=== PATIENT | female | born 1960 | race Caucasian/White ===

== ENCOUNTER 2017-11-11 18:06 | Inpatient (IN) | payer SELFPAY ==
[~2017-11-11] VITALS: Ht 157.5 cm; Wt 84.7 kg
[~2017-11-11 18:06] MED LIST: CLON.5 PO; DICL50 PO; GABA250S PO; METH750T2 PO; MIRA0.5T PO; PRIL20CA PO; ZOLO50TA PO
[2017-11-11 18:13] VITALS: BP 140/87; PULSE 128; RESP 22; TEMP 103.6; O2SAT 95
[2017-11-11 18:29] VITALS: TEMP 98.6
[2017-11-11 18:43] VITALS: O2SAT 95
--- NOTE | 2017-11-11 19:02 | RADRPT ---
EXAM DATE/TIME: 11/11/2017 18:58 [facility] COMPARISON: CHEST SINGLE AP, June 17, 2015, 19:34. INDICATIONS : Chest pain and short of breath. MEDICAL HISTORY : None. SURGICAL HISTORY : None. ENCOUNTER: Initial ACUITY: 1 day PAIN SCORE: 2/10 LOCATION: Bilateral chest FINDINGS: A single view of the chest demonstrates the lungs to be symmetrically aerated without evidence of mas s, infiltrate or effusion. The cardiomediastinal contours are unremarkable. Osseous structures are intact. CONCLUSION: Normal examination. Hitesh Middleton MD on November 11, 2017 at 19:00 Board Certified Radiologist. This report was verified electronically.
--- NOTE | 2017-11-11 19:03 | PD ---
HPI Chief Complaint: Flank/Kidney Pain Time Seen by Provider: 18:24 (Paloma Godfrey) Time Seen by Provider: 21:22 (Toña Espinal MD) Travel History International Travel<30 days: No Contact w/Intl Traveler<30days: No Traveled to known affect area: No (Paloma Godfrey) History of Present Illness HPI 57-year-old female complaining of left flank pain, dizziness, and bloody urine since September 2017. Patient states that she is here today because she is having severe flank pain and is unable to tolerate the pain anymore. Says currently her left flank pain is sharp, stabbing, radiates to the anterior flank and groin, associated with chills and nausea. The pain increases with movement and is moderate. Patient states that she had a kidney stent placed in September with Dr. Calloway for kidney stones. Patient also states she has developed diarrhea around November 04 which she believes is recurrent C. difficile. She has had 5-6 episodes of diarrhea daily. Says her last episode was in September 2016. Denies vomiting or hematochezia. Says she has had a difficult time with oral intake secondary to this nausea. (Paloma Godfrey) PFSH Past Medical History Blood Disorders: No Anxiety: Yes Depression: Yes Heart Rhythm Problems: No Cancer: No Cardiac Catheterization: No Cardiovascular Problems: No Congestive Heart Failure: No COPD: Yes (DENIES) Diabetes: No Diminished Hearing: No Endocrine: No Gastrointestinal Disorders: Yes (acid reflux, IBS) Glaucoma: No Genitourinary: No Hepatitis: No Hiatal Hernia: No Hypertension: No Immune Disorder: No Musculoskeletal: Yes (CARPAL TUNNEL, ARTHRITIS) Neurologic: No Psychiatric: Yes (anxiety) Reproductive: Yes Respiratory: No Thyroid Disease: No ?: Not Tubal Ligation: Yes (Paloma Godfrey) Past Surgical History Abdominal Surgery: Yes Appendectomy: Yes Section: Yes (X1) Coronary Artery Bypass Graft: No Gynecologic Surgery: Yes (d&c, cyst removed from ovary ) Hysterectomy: Yes Other Surgery: Yes (BREAST REDUCTION) (Paloma Godfrey) Social History Alcohol Use: No (DENIES) Tobacco Use: No (QUIT 2YRS AGO) Substance Use: No (DENIES) (Paloma Godfrey) Allergies-Medications (Allergen,Severity, Reaction): Coded Allergies: No Known Allergies (Verified Allergy, Unknown, 1/8/18) Reported Meds & Prescriptions Reported Meds & Active Scripts Active (Toña Espinal MD) Review of Systems Except as stated in HPI: all other systems reviewed are Neg (Paloma Godfrey) Physical Exam Narrative GENERAL: Well-nourished in no apparent distress SKIN: Focused skin assessment warm/dry. HEAD: Atraumatic. Normocephalic. EYES: Pupils equal and round. No scleral icterus. No injection or drainage. ENT: No nasal bleeding or discharge. Mucous membranes pink and moist. NECK: Trachea midline. No JVD. No lymphadenopathy CARDIOVASCULAR: Regular rate and rhythm. No murmur appreciated. RESPIRATORY: No accessory muscle use. Clear to auscultation. Breath sounds equal bilaterally. GASTROINTESTINAL: Abdomen soft, diffusely tender, nondistended MUSCULOSKELETAL: No obvious deformities. No clubbing. No cyanosis. No edema. Chest wall mildly tender NEUROLOGICAL: Awake and alert. No obvious cranial nerve deficits. Motor grossly within normal limits. Normal speech. PSYCHIATRIC: Appropriate mood and affect; insight and judgment normal. (Paloma Godfrey) Data Data Last Documented VS Vital Signs Date Time Temp Pulse Resp B/P (MAP) Pulse Ox O2 Delivery O2 Flow Rate FiO2 11/11/17 22:01 102.0 106 18 136/63 (87) 100 Room Air (Toña Espinal MD) Orders Orders Electrocardiogram (11/11/17 18:35) Complete Blood Count With Diff (11/11/17 18:35) Comprehensive Metabolic Panel (11/11/17 18:35) Prothrombin Time / Inr (Pt) (11/11/17 18:35) Act Partial Throm Time (Ptt) (11/11/17 18:35) Urinalysis - C+S If Indicated (11/11/17 18:35) Iv Access Insert/Monitor (11/11/17 18:35) Ecg Monitoring (11/11/17 18:35) Oximetry (11/11/17 18:35) Type And Screen (11/11/17 18:35) Ct Abd/Pel W Iv Contrast(Rout) (11/11/17 ) Sepsis Workup Initiated (11/11/17 ) Lactic Acid Sepsis Protocol (11/11/17 18:40) Influenzae A/B Antigen (11/11/17 18:40) Chest, Single Ap (11/11/17 18:40) Ct Brain W/O Iv Contrast(Rout) (11/11/17 ) C Diff Toxin Pcr (11/11/17 19:09) Ondansetron Inj (Zofran Inj) (11/11/17 19:15) Sodium Chlor 0.9% 1000 Ml Inj (Ns 1000 M (11/11/17 19:15) Morphine Inj (Morphine Inj) (11/11/17 19:15) Lipase (11/11/17 18:35) Urine Culture (11/11/17 18:35) Iohexol 350 Inj (Omnipaque 350 Inj) (11/11/17 20:30) Ceftriaxone Inj (Rocephin Inj) (11/11/17 21:00) Admit Order (Ed Use Only) (11/11/17 22:04) (Toña Espinal MD) Labs Laboratory Tests Test 11/11/17 18:35 11/11/17 18:45 Urine Color YELLOW Urine Turbidity HAZY Urine pH 7.0 Urine Specific [place] 1.013 Urine Protein 30 mg/dL Urine Glucose (UA) NEG mg/dL Urine Ketones NEG mg/dL Urine Occult Blood LARGE Urine Nitrite POS Urine Bilirubin NEG Urine Urobilinogen LESS THAN 2.0 MG/DL Urine Leukocyte Esterase LARGE Urine RBC /hpf Urine WBC /hpf Urine WBC Clumps OCC Urine Squamous Epithelial Cells 2 /hpf Urine Bacteria RARE /hpf Urine Mucus FEW /lpf Microscopic Urinalysis Comment CULTURE INDICATED White Blood Count 7.3 TH/MM3 Red Blood Count 3.61 MIL/MM3 Hemoglobin 11.1 GM/DL Hematocrit 31.5 % Mean Corpuscular Volume 87.2 FL Mean Corpuscular Hemoglobin 30.8 PG Mean Corpuscular Hemoglobin Concent 35.3 % Red Cell Distribution Width 13.5 % Platelet Count 154 TH/MM3 Mean Platelet Volume 9.0 FL Neutrophils (%) (Auto) 77.2 % Lymphocytes (%) (Auto) 14.7 % Monocytes (%) (Auto) 6.6 % Eosinophils (%) (Auto) 0.9 % Basophils (%) (Auto) 0.6 % Neutrophils # (Auto) 5.6 TH/MM3 Lymphocytes # (Auto) 1.1 TH/MM3 Monocytes # (Auto) 0.5 TH/MM3 Eosinophils # (Auto) 0.1 TH/MM3 Basophils # (Auto) 0.0 TH/MM3 CBC Comment DIFF FINAL Differential Comment Prothrombin Time 10.5 SEC Prothromb Time International Ratio 1.0 RATIO Activated Partial Thromboplast Time 26.6 SEC Blood Urea Nitrogen 15 MG/DL Creatinine 1.01 MG/DL Random Glucose 116 MG/DL Total Protein 6.8 GM/DL Albumin 3.5 GM/DL Calcium Level 8.5 MG/DL Alkaline Phosphatase 77 U/L Aspartate Amino Transf (AST/SGOT) 10 U/L Alanine Aminotransferase (ALT/SGPT) 16 U/L Total Bilirubin 0.6 MG/DL Sodium Level 137 MEQ/L Potassium Level 3.4 MEQ/L Chloride Level 104 MEQ/L Carbon Dioxide Level 27.3 MEQ/L Anion Gap 6 MEQ/L Estimat Glomerular Filtration Rate 57 ML/MIN Lactic Acid Level 1.0 mmol/L Lipase 83 U/L (Toña Espinal MD) [facility] Medical Decision Making Medical Screen Exam Complete: Yes Emergency Medical Condition: Yes Differential Diagnosis UTI, nephrolithiasis, influenza, pancreatitis, cholecystitis, C Diff, infectious diarrhea Narrative Course 57-year-old female complaining of left flank pain, dizziness, and bloody urine since September 2017. Patient states that she is here today because she is having severe flank pain and is unable to tolerate this anymore. Says currently her left flank pain is sharp, stabbing, radiates to the anterior flank and groin associated with chills and nausea. The pain increases with movement and is moderate. Patient states that she had a kidney stent placed in September with Dr. Calloway for kidney stones. Patient also states she has developed diarrhea which she believes is recurrent C. difficile. She has had 5-6 episodes of diarrhea daily. Says her last episode was in September 2016. Says she has been 'bumping her head' a lot recently because of the pain. Denies headaches or visual changes. Denies vomiting or hematochezia. Says she has had a difficult time with oral intake secondary to this nausea. Denies chest pain or shortness of breath. Denies cardiac history. Vital signs- tachycardia. Initial temperature 103.8, recheck in the room at 98.6. Pt describes fevers at home of 103. Laboratory Tests Test 11/11/17 18:35 11/11/17 18:45 Urine Color YELLOW Urine Turbidity HAZY Urine pH 7.0 Urine Specific [place] 1.013 Urine Protein 30 mg/dL Urine Glucose (UA) NEG mg/dL Urine Ketones NEG mg/dL Urine Occult Blood LARGE Urine Nitrite POS Urine Bilirubin NEG Urine Urobilinogen LESS THAN 2.0 MG/DL Urine Leukocyte Esterase LARGE Urine RBC /hpf Urine WBC /hpf Urine WBC Clumps OCC Urine Squamous Epithelial Cells 2 /hpf Urine Bacteria RARE /hpf Urine Mucus FEW /lpf Microscopic Urinalysis Comment CULTURE INDICATED White Blood Count 7.3 TH/MM3 Red Blood Count 3.61 MIL/MM3 Hemoglobin 11.1 GM/DL Hematocrit 31.5 % Mean Corpuscular Volume 87.2 FL Mean Corpuscular Hemoglobin 30.8 PG Mean Corpuscular Hemoglobin Concent 35.3 % Red Cell Distribution Width 13.5 % Platelet Count 154 TH/MM3 Mean Platelet Volume 9.0 FL Neutrophils (%) (Auto) 77.2 % Lymphocytes (%) (Auto) 14.7 % Monocytes (%) (Auto) 6.6 % Eosinophils (%) (Auto) 0.9 % Basophils (%) (Auto) 0.6 % Neutrophils # (Auto) 5.6 TH/MM3 Lymphocytes # (Auto) 1.1 TH/MM3 Monocytes # (Auto) 0.5 TH/MM3 Eosinophils # (Auto) 0.1 TH/MM3 Basophils # (Auto) 0.0 TH/MM3 CBC Comment DIFF FINAL Differential Comment Prothrombin Time 10.5 SEC Prothromb Time International Ratio 1.0 RATIO Activated Partial Thromboplast Time 26.6 SEC Blood Urea Nitrogen 15 MG/DL Creatinine 1.01 MG/DL Random Glucose 116 MG/DL Total Protein 6.8 GM/DL Albumin 3.5 GM/DL Calcium Level 8.5 MG/DL Alkaline Phosphatase 77 U/L Aspartate Amino Transf (AST/SGOT) 10 U/L Alanine Aminotransferase (ALT/SGPT) 16 U/L Total Bilirubin 0.6 MG/DL Sodium Level 137 MEQ/L Potassium Level 3.4 MEQ/L Chloride Level 104 MEQ/L Carbon Dioxide Level 27.3 MEQ/L Anion Gap 6 MEQ/L Estimat Glomerular Filtration Rate 57 ML/MIN Lactic Acid Level 1.0 mmol/L Lipase 83 U/L Last Impressions Chest X-Ray 11/11/17 1840 Signed Impressions: Service Date/Time: Saturday, November 11, 2017 18:58 - CONCLUSION: Normal examination. Hitesh Middleton MD Head CT 11/11/17 0000 Signed Impressions: Service Date/Time: Saturday, November 11, 2017 20:17 - CONCLUSION: Normal examination. Hitesh Middleton MD Abdomen/Pelvis CT 11/11/17 0000 Signed Impressions: Service Date/Time: Saturday, November 11, 2017 20:20 - CONCLUSION: Left-sided double-J ureteral catheter in good position. 2-3 mm stone at the level of L4-5 disc space on the left. Numerous gallstones without evidence of acute cholecystitis. Hitesh Middleton MD Flu was ordered secondary to her initial complaints of nausea, diarrhea, and fever. This was negative. Patient was able to ambulate around the room and to the bathroom easily. After further discussion, patient states that she has had recurrent urinary tract infections. There is a concern for pyelonephritis based off of patient's history and findings today. Initial fever, tachycardia, nausea, diarrhea. She had a recent history of a 10-day hospital stay at [facility] for sepsis. She will be admitted for pyelonephritis, r/o sepsis. (Paloma Godfrey) Diagnosis Primary Impression: UTI (urinary tract infection) Qualified Codes: N30.00 - Acute cystitis without hematuria Additional Impressions: Nephrolithiasis Pyelonephritis C. difficile diarrhea Admitting Information Admitting Physician Requests: Observation (Paloma Godfrey) Condition: Stable Paloma Godfrey Nov 11, 2017 19:03 Toña Espinal MD Nov 11, 2017 21:13
[2017-11-11] MEDS ORDERED: SODIUM CHLOR 0.9% 1000 ML INJ 1,000 ML IV ONE (19:15)
[2017-11-11] MEDS ORDERED: ONDANSETRON HCL 4 MG/2 ML VIAL IV PUSH ONE (19:15)
[2017-11-11] MEDS ORDERED: MORPHINE SULFATE 2 MG/ML INJ IV PUSH ONE (19:15)
[2017-11-11 19:30] LABS: BACTERIA, URINE RARE /hpf; BILIRUBIN, URINE NEG (NEG); BLOOD, URINE LARGE (NEG); GLUCOSE,URINE NEG (NEG); KETONE, URINE NEG (NEG); MUCUS URINE FEW /lpf (OCC); NITRITE,URINE POS (NEG); SQUAMOUS EPITHELIAL CELL URINE 2 /hpf (0-5); URINE COLOR YELLOW (YELLW/STRAW); URINE LEUKOCYTE ESTERASE LARGE (NEG); WHITE BLOOD CELL CLUMPS OCC
[2017-11-11 19:33] LABS: PROTHROMBIN TIME - PATIENT 10.5 SEC (9.8-11.6)
[2017-11-11 19:55] LABS: AUTOMATED NEUTROPHIL # 5.6 TH/MM3 (1.8-7.7); BASOPHIL % 0.6 % (0.0-2.0); EOSINOPHIL # 0.1 TH/MM3 (0-0.4); EOSINOPHIL % 0.9 % (0.0-4.0); HEMATOCRIT 31.5 % (35.0-46.0); HEMOGLOBIN 11.1 GM/DL (11.6-15.3); LYMPH % 14.7 % (9.0-44.0); LYMPHOCYTE # 1.1 TH/MM3 (1.0-4.8); MEAN CELL VOLUME 87.2 FL (80.0-100.0); MEAN CORPUSCULAR HEMOGLOBIN 30.8 PG (27.0-34.0); MEAN CORPUSCULAR HGB CONC 35.3 % (32.0-36.0); MONO % 6.6 % (0.0-8.0); MONOCYTE # 0.5 TH/MM3 (0-0.9); NEUT % 77.2 % (16.0-70.0); PLATELET COUNT 154 TH/MM3 (150-450); RED BLOOD COUNT 3.61 MIL/MM3 (4.00-5.30); RED CELL DISTRIBUTION WIDTH 13.5 % (11.6-17.2); WHITE BLOOD COUNT 7.3 TH/MM3 (4.0-11.0)
[2017-11-11 20:08] LABS: ALBUMIN 3.5 GM/DL (3.4-5.0); AST (GOT) 10 U/L (15-37); BICARBONATE 27.3 MEQ/L (21.0-32.0); BLOOD UREA NITROGEN 15 MG/DL (7-18); CALCIUM 8.5 MG/DL (8.5-10.1); CHLORIDE 104 MEQ/L (98-107); CREATININE 1.01 MG/DL (0.50-1.00); GLOMERULAR FILTRATION RATE 57 ML/MIN (>89); GLUCOSE,RANDOM 116 MG/DL (74-106); LIPASE 83 U/L (73-393); SODIUM (NA) 137 MEQ/L (136-145)
[2017-11-11 20:09] LABS: ALT (GPT) 16 U/L (10-53)
[2017-11-11 20:11] LABS: ALKALINE PHOSPHATASE 77 U/L (45-117); TOTAL BILIRUBIN ADULT 0.6 MG/DL (0.2-1.0); TOTAL PROTEIN 6.8 GM/DL (6.4-8.2)
[2017-11-11] MEDS ORDERED: IOHEXOL 350 MG/ML 10 ML VIAL (for RAD DIAG) IVCONTRAST ONE (20:30)
[2017-11-11 20:47] VITALS: BP 123/74; PULSE 95; RESP 18; O2SAT 100
--- NOTE | 2017-11-11 20:49 | RADRPT ---
EXAM DATE/TIME: 11/11/2017 20:17 [facility] COMPARISON: CT BRAIN W/O CONTRAST, June 17, 2015, 22:26. INDICATIONS : Dizziness today. RADIATION DOSE: 56.35 CTDIvol (mGy) MEDICAL HISTORY : Chronic obstructive pulmonary disease. SURGICAL HISTORY : Hysterectomy. ENCOUNTER: Initial ACUITY: 1 day PAIN SCALE: 0/10 LOCATION: Bilateral head TECHNIQUE: Multiple contiguous axial images were obtained of the head. Using automated exposure control and adj ustment of the mA and/or kV according to patient size, radiation dose was kept as low as reasonably a chievable to obtain optimal diagnostic quality images. DICOM format image data is available electro nically for review and comparison. FINDINGS: CEREBRUM: The ventricles are normal for age. No evidence of midline shift, mass lesion, hemorrhage or acute in farction. No extra-axial fluid collections are seen. POSTERIOR FOSSA: The cerebellum and brainstem are intact. The 4th ventricle is midline. The cerebellopontine angle i s unremarkable. EXTRACRANIAL: The visualized portion of the orbits is intact. SKULL: The calvaria is intact. No evidence of skull fracture. CONCLUSION: Normal examination. Hitesh Middleton MD on November 11, 2017 at 20:46 Board Certified Radiologist. This report was verified electronically.
--- NOTE | 2017-11-11 20:53 | RADRPT ---
EXAM DATE/TIME: 11/11/2017 20:20 [facility] COMPARISON: No previous studies available for comparison. INDICATIONS : Left flank pain for three days. IV CONTRAST: 96 cc Omnipaque 350 (iohexol) IV ORAL CONTRAST: No oral contrast ingested. RADIATION DOSE: 8.5 CTDIvol (mGy) MEDICAL HISTORY : Chronic obstructive pulmonary disease. SURGICAL HISTORY : Hysterectomy. Appendectomy. section. ENCOUNTER: Initial ACUITY: 1 day PAIN SCALE: 7/10 LOCATION: Left flank TECHNIQUE: Volumetric scanning of the abdomen and pelvis was performed. Using automated exposure control and ad justment of the mA and/or kV according to patient size, radiation dose was kept as low as reasonably achievable to obtain optimal diagnostic quality images. DICOM format image data is available electro nically for review and comparison. FINDINGS: LOWER LUNGS: The visualized lower lungs are clear. Small bilateral pleural effusions LIVER: Homogeneous density without lesion. There is no dilation of the biliary tree. Numerous calcified ga llstones. SPLEEN: Normal size without lesion. PANCREAS: Within normal limits. KIDNEYS: There is a left-sided ureteral stent in place with some residual mild hydronephrosis of the left kidn ey. There is a stone in the proximal left ureter measuring 2-3 mm across at the level of the L4-5 dis c space. ADRENAL GLANDS: Within normal limits. VASCULAR: There is no aortic aneurysm. BOWEL/MESENTERY: The stomach, small bowel, and colon demonstrate no acute abnormality. There is no free intraperitone al air or fluid. ABDOMINAL WALL: Within normal limits. RETROPERITONEUM: There is no lymphadenopathy. BLADDER: No wall thickening or mass. REPRODUCTIVE: Within normal limits. INGUINAL: There is no lymphadenopathy or hernia. MUSCULOSKELETAL: Within normal limits for patient age. CONCLUSION: Left-sided double-J ureteral catheter in good position. 2-3 mm stone at the level of L4-5 disc space on the left. Numerous gallstones without evidence of acute cholecystitis. Hitesh Middleton MD on November 11, 2017 at 20:48 Board Certified Radiologist. This report was verified electronically.
[2017-11-11] MEDS ORDERED: cefTRIAXone INJ 1,000 MG in SODIUM CHLORIDE 0.9% INJ 100 ML IV ONE (21:00)
--- NOTE | 2017-11-11 21:15 | PD ---
Physical Exam Narrative General: The patient is a well-developed well-nourished female in no acute distress. Head and Neck exam: Head is normocephalic atraumatic. Eyes: EOMI, pupils are equal round and reactive to light. Nose: Midline septum with pink mucous membranes Mouth: Dentition unremarkable. Moist mucus membranes. Posterior oropharynx is not erythematous. No tonsillar hypertrophy. Uvula midline. Airway patent. Neck: No palpable lymphadenopathy. No nuchal rigidity. No thyromegaly. Cardiovascular: Regular rate and rhythm without murmurs, gallops, or rubs. Lungs: Clear to auscultation bilaterally. No wheezes, rhonchi, or rales. Abdomen: Soft, with tenderness on palpation overlying the suprapubic area and left lower quadrant of the abdomen. No other tenderness on palpation of the other quadrants of the abdomen. No tenderness on palpation of McBurney's point. Normal bowel sounds are audible. No guarding, rebound, or rigidity. Extremities: No clubbing, cyanosis, or edema. 2+ pulses in all 4 extremities. No calf tenderness on palpation. Back: No spinous process tenderness to palpation. Left-sided CVA tenderness on palpation. Neurologic Exam: Grossly nonfocal. Skin Exam: No rash noted. Intact skin that is warm and dry. Data Data Last Documented VS Vital Signs Date Time Temp Pulse Resp B/P (MAP) Pulse Ox O2 Delivery O2 Flow Rate FiO2 11/11/17 22:01 102.0 106 18 136/63 (87) 100 Room Air Orders Orders Electrocardiogram (11/11/17 18:35) Complete Blood Count With Diff (11/11/17 18:35) Comprehensive Metabolic Panel (11/11/17 18:35) Prothrombin Time / Inr (Pt) (11/11/17 18:35) Act Partial Throm Time (Ptt) (11/11/17 18:35) Urinalysis - C+S If Indicated (11/11/17 18:35) Iv Access Insert/Monitor (11/11/17 18:35) Ecg Monitoring (11/11/17 18:35) Oximetry (11/11/17 18:35) Type And Screen (11/11/17 18:35) Ct Abd/Pel W Iv Contrast(Rout) (11/11/17 ) Sepsis Workup Initiated (1/8/18 ) Lactic Acid Sepsis Protocol (11/11/17 18:40) Influenzae A/B Antigen (11/11/17 18:40) Chest, Single Ap (11/11/17 18:40) Ct Brain W/O Iv Contrast(Rout) (11/11/17 ) C Diff Toxin Pcr (11/11/17 19:09) Ondansetron Inj (Zofran Inj) (11/11/17 19:15) Sodium Chlor 0.9% 1000 Ml Inj (Ns 1000 M (11/11/17 19:15) Morphine Inj (Morphine Inj) (11/11/17 19:15) Lipase (11/11/17 18:35) Urine Culture (11/11/17 18:35) Iohexol 350 Inj (Omnipaque 350 Inj) (11/11/17 20:30) Ceftriaxone Inj (Rocephin Inj) (11/11/17 21:00) Admit Order (Ed Use Only) (11/11/17 22:04) Labs Laboratory Tests Test 11/11/17 18:35 11/11/17 18:45 Urine Color YELLOW Urine Turbidity HAZY Urine pH 7.0 Urine Specific [place] 1.013 Urine Protein 30 mg/dL Urine Glucose (UA) NEG mg/dL Urine Ketones NEG mg/dL Urine Occult Blood LARGE Urine Nitrite POS Urine Bilirubin NEG Urine Urobilinogen LESS THAN 2.0 MG/DL Urine Leukocyte Esterase LARGE Urine RBC /hpf Urine WBC /hpf Urine WBC Clumps OCC Urine Squamous Epithelial Cells 2 /hpf Urine Bacteria RARE /hpf Urine Mucus FEW /lpf Microscopic Urinalysis Comment CULTURE INDICATED White Blood Count 7.3 TH/MM3 Red Blood Count 3.61 MIL/MM3 Hemoglobin 11.1 GM/DL Hematocrit 31.5 % Mean Corpuscular Volume 87.2 FL Mean Corpuscular Hemoglobin 30.8 PG Mean Corpuscular Hemoglobin Concent 35.3 % Red Cell Distribution Width 13.5 % Platelet Count 154 TH/MM3 Mean Platelet Volume 9.0 FL Neutrophils (%) (Auto) 77.2 % Lymphocytes (%) (Auto) 14.7 % Monocytes (%) (Auto) 6.6 % Eosinophils (%) (Auto) 0.9 % Basophils (%) (Auto) 0.6 % Neutrophils # (Auto) 5.6 TH/MM3 Lymphocytes # (Auto) 1.1 TH/MM3 Monocytes # (Auto) 0.5 TH/MM3 Eosinophils # (Auto) 0.1 TH/MM3 Basophils # (Auto) 0.0 TH/MM3 CBC Comment DIFF FINAL Differential Comment Prothrombin Time 10.5 SEC Prothromb Time International Ratio 1.0 RATIO Activated Partial Thromboplast Time 26.6 SEC Blood Urea Nitrogen 15 MG/DL Creatinine 1.01 MG/DL Random Glucose 116 MG/DL Total Protein 6.8 GM/DL Albumin 3.5 GM/DL Calcium Level 8.5 MG/DL Alkaline Phosphatase 77 U/L Aspartate Amino Transf (AST/SGOT) 10 U/L Alanine Aminotransferase (ALT/SGPT) 16 U/L Total Bilirubin 0.6 MG/DL Sodium Level 137 MEQ/L Potassium Level 3.4 MEQ/L Chloride Level 104 MEQ/L Carbon Dioxide Level 27.3 MEQ/L Anion Gap 6 MEQ/L Estimat Glomerular Filtration Rate 57 ML/MIN Lactic Acid Level 1.0 mmol/L Lipase 83 U/L [facility] Medical Record Reviewed: Yes Supervised Visit with ARSLAN: Yes Interpretation(s) Last Impressions Chest X-Ray 11/11/17 1840 Signed Impressions: Service Date/Time: Saturday, November 11, 2017 18:58 - CONCLUSION: Normal examination. Hitesh Middleton MD Head CT 11/11/17 0000 Signed Impressions: Service Date/Time: Saturday, November 11, 2017 20:17 - CONCLUSION: Normal examination. Hitesh Middleton MD Abdomen/Pelvis CT 11/11/17 0000 Signed Impressions: Service Date/Time: Saturday, November 11, 2017 20:20 - CONCLUSION: Left-sided double-J ureteral catheter in good position. 2-3 mm stone at the level of L4-5 disc space on the left. Numerous gallstones without evidence of acute cholecystitis. Hitesh Middleton MD Narrative Course I, Dr. Espinal, have reviewed the advance practice practitioner's documentation and am in agreement, met with the patient face to face, made the diagnosis, and the medical decision making was done by me. The patient was initially evaluated by [facility]. Please see their complete history and physical. *My assessment and Findings: The patient presents with diarrhea, left flank, blood in urine, tremulousness that began around New Years. The patient reports having a history of kidney stones and had bilateral ureteral stents placed in September. The patient reports that throughout the course of having the ureteral since she's been on multiple rounds of antibiotic for infection. She was diagnosed with a UTI at [facility] recently again. She ran out of antibiotic on New Years. She was last on Cefzil. The urologist wanted to do a procedure and she cannot afford the down payment. She has had nausea and vomiting x3 today. She has had diarrhea 4-5 x today. She denies having any blood in her stool. She had C.diff on 10/15 and was in [facility] at [facility] for 10 days. Her PCP is Dr. Mcbride. During the course of the patients emergency department visit, the patients history, examination, and differential diagnosis were reviewed with the patient. The patient was placed on a ekg monitor with oximetry and frequent blood pressure monitoring. The patient had IV access obtained and blood work sent for analysis. Records from [facility] will be obtained regarding this patient's case. The patient was initially provided morphine for pain, Zofran for nausea. The patient was given normal saline 1 L IV fluid bolus. The patients laboratory studies were reviewed and remarkable for white count is 7.3, hemoglobin 11.1, platelets 154, 77.2 neutrophils, CMP is remarkable for a potassium of 3.4, creatinine 1.01, glucose 116, AST 10, lipase 83, PT PTT within normal limits. Radiology studies were reviewed and remarkable for urinalysis shows hazy urine 30 protein and large occult blood, positive nitrite, large leukocyte esterase, innumerable RBCs and WBCs with occasional clumps and rare bacteria. Culture indicated. The patients results were discussed with the patient, including the plan of care. I explained that further testing and/ or monitoring is indicated based on the patients history, examination, and/ or laboratory findings. Therefore, I recommended admission for additional evaluation. The patient expressed understanding and was agreeable with this plan. The patient was admitted to the hospital in stable condition and [facility] Diagnosis Primary Impression: UTI (urinary tract infection) Qualified Codes: N30.00 - Acute cystitis without hematuria Additional Impression: Nephrolithiasis Admitting Information Admitting Physician Requests: Admit Condition: Stable Toña Espinal MD Nov 11, 2017 21:15
[2017-11-11 22:01] VITALS: BP 136/63; PULSE 106; RESP 18; TEMP 102; O2SAT 100
[2017-11-11] MEDS ORDERED: NALOXONE HCL 0.4 MG/ML AMP IV PUSH PRN (22:15)
[2017-11-11] MEDS ORDERED: POTASSIUM CHLORIDE 25 MEQ EFFERVESCENT TAB PO ONE (22:15)
[2017-11-11] MEDS ORDERED: ACETAMINOPHEN 325 MG TAB PO PRN (23:15)
[2017-11-11] MEDS: CIPROFLOXACIN 400 MG PREMIX 200 ML IV SCH (23:33)
--- NOTE | 2017-11-11 23:56 | HHI.HP ---
[facility] Service [facility] Primary Care Physician Behzad Mcbride, DO Admission Diagnosis pyelonephritis, UTI, Nausea, History of C Diff Diagnoses: (1) Sepsis (2) UTI (urinary tract infection) (3) Pyelonephritis (4) History of Clostridium difficile infection Chief Complaint: Dysuria, hematuria, left flank pain Travel History International Travel<30 Days: No Contact w/Intl Traveler <30 Da: No Traveled to Known Affected Are: No History of Present Illness Ms. Dawkins is a 57 year old female with a history of severe sepsis secondary to urinary infection resulting from obstructive nephrolithiasis treated by Dr. Lopez at [facility], C. difficile colitis, anxiety/depression, IBS, GERD , and restless leg syndrome who presented to [facility] on 11/11/16 c/o severe left flank pain, hematuria, and dysuria accompanied by fever, chills, nausea and vomiting. The patient is found to have temperature of 103.6 and tachycardia with abnormal UA and examination c/w sepsis and pyelonephritis. The patient is seen in the ED. she reports having severe sepsis related to obstructive uropathy from kidney stones in September 2016. She states she spent about 10 days in ICU during that time. She was also found to have C. difficile colitis and was treated in September for us. She states that she is intermittently had problems with fever, chills, hematuria, and dysuria since that hospitalization. She states that her urologist wants to remove the double- J stents he placed in September but is requiring [place] upfront to schedule the procedure. She says she doesn't have any money and is a self-pay patient. She also reports nausea with vomiting but denies any diarrhea. She states she has not been eating solids for the last 3-4 days and has lost about 30 pounds in the last month. The patient did state that she felt lightheaded upon arising from the stretcher to go to the bathroom. She also reports feeling dizzy and falling down and "bumping" her head a couple of times over the past few days. Denies syncope. Head CT was normal. Review of Systems Except as stated in HPI: all other systems reviewed are Neg Past Family Social History Past Medical History C. Difficile Colitis 09/2017 Septic Shock 09/2017 - treated at [facility] Nephrolithiasis with obstructive uropathy s/p left double J ureteral stent placement - treated by Dr. Lopez at [facility] Anxiety/depression IBS GERD Restless leg syndrome Denies any history of DVT, PE, CVA, or seizures . Past Surgical History Right knee arthroscopy BTL Hysterectomy Appendectomy Breast reduction . Reported Medications Reported Meds & Active Scripts Active Voltaren (Diclofenac Sodium) 50 Mg Tabec 50 Mg PO TID Zoloft (Sertraline HCl) 50 Mg Tab 50 Mg PO DAILY Robaxin (Methocarbamol) 750 Mg Tab 750 Mg PO QID Klonopin (Clonazepam) 0.5 Mg Tab 0.5 Mg PO BID this rx was hand written by Dr. Ash & given to pt at d/c Reported Neurontin (Gabapentin) 250 Mg/5 Ml Keren 600 Mg PO TID Prilosec 20 mg (Omeprazole) 20 Mg Cap 20 Mg PO DAILY Mirapex (Pramipexole Dihydrochloride) 0.5 Mg Tab 0.5 Mg PO TID FOR RESTLESS LEG SYNDROME . Allergies: Coded Allergies: No Known Allergies (Verified Allergy, Unknown, 11/11/17) Active Ordered Medications Current Medications Ondansetron HCl (Zofran Inj) 4 mg ONCE ONCE IV PUSH Last administered on at 19:36; Start 11/11/17 at 19:15; Stop 11/11/17 at 19:16; Status DC Sodium Chloride 1,000 ml @ 999 mls/hr BOLUS ONCE IV Last administered on 19:36; Start 11/11/17 at 19:15; Stop 11/11/17 at 20:15; Status DC Morphine Sulfate (Morphine Inj) 2 mg ONCE ONCE IV PUSH Last administered on 19:36; Start 11/11/17 at 19:15; Stop 11/11/17 at 19:16; Status DC Iohexol (Omnipaque 350 Inj) 96 ml STK-MED ONCE IVCONTRAST Last administered on 11/11/17at 20:30; Start 11/11/17 at 20:30; Stop 11/11/17 at 20:39; Status DC Ceftriaxone Sodium 1000 mg/ Sodium Chloride 100 ml @ 200 mls/hr ONCE ONCE IV Last administered on 11/11/17at 21:20; Start 11/11/17 at 21:00; Stop 11/11/17 at 21: 29; Status DC Sodium Chloride (NS Flush) 2 ml UNSCH PRN IV FLUSH FLUSH AFTER USING IV ACCESS ; Start 11/11/17 at 22:15 Sodium Chloride (NS Flush) 2 ml BID IV FLUSH ; Start 11/12/17 at 09:00 Naloxone HCl (Narcan Inj) 0.4 mg UNSCH PRN IV PUSH SEE LABEL COMMENTS; Start at 22:15 Potassium Bicarb/ Potassium Chloride (K-Lyte Cl Eff) 50 meq ONCE ONCE PO Last administered on 11/11/17at 23:33; Start 11/11/17 at 22:15; Stop 11/11/17 at 22: 18; Status DC Ciprofloxacin/ Dextrose 200 ml @ 200 mls/hr Q12H IV Last administered on at 23:33; Start 11/11/17 at 23:00 Acetaminophen (Tylenol) 650 mg Q4H PRN PO temp > 101; Start 11/11/17 at 23:15 Morphine Sulfate (Morphine Inj) 2 mg Q3H PRN IV PUSH pain >5; Start 11/12/17 at 00:00 . Family History 2 brothers with alcoholism Brother with crack addiction Father with colon cancer . Social History Tobacco: Denies - states she quit smoking 6 years ago Alcohol: Denies Illicit Drugs: Denies . Physical Exam Vital Signs Vital Signs Date Time Temp Pulse Resp B/P (MAP) Pulse Ox O2 Delivery O2 Flow Rate FiO2 11/11/17 22:01 102.0 106 18 136/63 (87) 100 Room Air 11/11/17 20:47 95 18 123/74 (90) 100 Room Air 11/11/17 18:43 95 Room Air 11/11/17 18:29 98.6 11/11/17 18:13 103.6 128 22 140/87 (104) 95 Physical Exam GENERAL: This is an anxious female patient, complaining of need to urinate. SKIN: No rashes. Cool and dry. HEAD: Atraumatic. Normocephalic. EYES: No scleral icterus. No injection or drainage. ENT: Nose without bleeding, purulent drainage. NECK: Trachea midline. No JVD. CARDIOVASCULAR: Regular rate and rhythm without murmurs, gallops, or rubs. RESPIRATORY: Clear to auscultation. Breath sounds equal bilaterally. No wheezes , rales, or rhonchi. GASTROINTESTINAL: Abdomen soft, non-tender, nondistended. No guarding. GENITOURINARY: left CVA tenderness MUSCULOSKELETAL: Extremities without clubbing, cyanosis, or edema. No calf tenderness. NEUROLOGICAL: Awake and alert. Motor and sensory grossly within normal limits. Normal speech. . Laboratory Laboratory Tests Test 11/11/17 18:35 11/11/17 18:45 Urine Color YELLOW Urine Turbidity HAZY Urine pH 7.0 Urine Specific [place] 1.013 Urine Protein 30 Urine Glucose (UA) NEG Urine Ketones NEG Urine Occult Blood LARGE Urine Nitrite POS Urine Bilirubin NEG Urine Urobilinogen LESS THAN 2.0 Urine Leukocyte Esterase LARGE Urine RBC Urine WBC Urine WBC Clumps OCC Urine Squamous Epithelial Cells 2 Urine Bacteria RARE Urine Mucus FEW Microscopic Urinalysis Comment CULTURE INDICATED White Blood Count 7.3 Red Blood Count 3.61 Hemoglobin 11.1 Hematocrit 31.5 Mean Corpuscular Volume 87.2 Mean Corpuscular Hemoglobin 30.8 Mean Corpuscular Hemoglobin Concent 35.3 Red Cell Distribution Width 13.5 Platelet Count 154 Mean Platelet Volume 9.0 Neutrophils (%) (Auto) 77.2 Lymphocytes (%) (Auto) 14.7 Monocytes (%) (Auto) 6.6 Eosinophils (%) (Auto) 0.9 Basophils (%) (Auto) 0.6 Neutrophils # (Auto) 5.6 Lymphocytes # (Auto) 1.1 Monocytes # (Auto) 0.5 Eosinophils # (Auto) 0.1 Basophils # (Auto) 0.0 CBC Comment DIFF FINAL Differential Comment Prothrombin Time 10.5 Prothromb Time International Ratio 1.0 Activated Partial Thromboplast Time 26.6 Blood Urea Nitrogen 15 Creatinine 1.01 Random Glucose 116 Total Protein 6.8 Albumin 3.5 Calcium Level 8.5 Alkaline Phosphatase 77 Aspartate Amino Transf (AST/SGOT) 10 Alanine Aminotransferase (ALT/SGPT) 16 Total Bilirubin 0.6 Sodium Level 137 Potassium Level 3.4 Chloride Level 104 Carbon Dioxide Level 27.3 Anion Gap 6 Estimat Glomerular Filtration Rate 57 Lactic Acid Level 1.0 Lipase 83 Date/Time Source Procedure Growth Status 11/11/17 19:34 Nasal Aspirate Influenza Types A,B Antigen (AYAN) - Final NEGATIVE FOR FLU A AND B ANTIGEN.... Complete 11/11/17 18:35 Urine Clean Catch Urine Culture Pending Worksheet Result Diagram: 11/11/17184411/11/171844 Imaging Last Impressions Chest X-Ray 11/11/17 1840 Signed Impressions: Service Date/Time: Saturday, November 11, 2017 18:58 - CONCLUSION: Normal examination. Hitesh Middleton MD Head CT 11/11/17 0000 Signed Impressions: Service Date/Time: Saturday, November 11, 2017 20:17 - CONCLUSION: Normal examination. Hitesh Middleton MD Abdomen/Pelvis CT 11/11/17 0000 Signed Impressions: Service Date/Time: Saturday, November 11, 2017 20:20 - CONCLUSION: Left-sided double-J ureteral catheter in good position. 2-3 mm stone at the level of L4-5 disc space on the left. Numerous gallstones without evidence of acute cholecystitis. Hitesh Middleton MD . Caprini VTE Risk Assessment Caprini VTE Risk Assessment: No/Low Risk (score <= 1) Caprini Risk Assessment Model Point Value = 1 Point Value = 2 Point Value = 3 Point Value = 5 Age 41-60 Minor surgery BMI > 25 kg/m2 Swollen legs Varicose veins or History of unexplained or recurrent spontaneous Oral contraceptives or hormone replacement Sepsis (< 1 month) Serious lung disease, including pneumonia (< 1 month) Abnormal pulmonary function Acute myocardial infarction Congestive heart failure (< 1 month) History of inflammatory bowel disease Medical patient at bed rest Age 61-74 Arthroscopic surgery Major open surgery (> 45 min) Laparoscopic surgery (> 45 min) Malignancy Confined to bed (> 72 hours) Immobilizing plaster cast Central venous access Age >= 75 History of VTE Family history of VTE Factor V Leiden Prothrombin [id number] Lupus anticoagulant Anticardiolipin antibodies Elevated serum homocysteine Heparin-induced thrombocytopenia Other congenital or acquired thrombophilia Stroke (< 1 month) Elective arthroplasty Hip, pelvis, or leg fracture Acute spinal cord injury (< 1 month) Prophylaxis Regimen Total Risk Factor Score Risk Level Prophylaxis Regimen 0-1 Low Early ambulation 2 Moderate Order ONE of the following: *Sequential Compression Device (SCD) *Heparin 5000 units SQ BID 3-4 Higher Order ONE of the following medications: *Heparin 5000 units SQ TID *Enoxaparin/Lovenox 40 mg SQ daily (WT < 150 kg, CrCl > 30 mL/min) *Enoxaparin/Lovenox 30 mg SQ daily (WT < 150 kg, CrCl > 10-29 mL/min) *Enoxaparin/Lovenox 30 mg SQ BID (WT < 150 kg, CrCl > 30 mL/min) AND/OR *Sequential Compression Device (SCD) 5 or more Highest Order ONE of the following medications: *Heparin 5000 units SQ TID (Preferred with Epidurals) *Enoxaparin/Lovenox 40 mg SQ daily (WT < 150 kg, CrCl > 30 mL/min) *Enoxaparin/Lovenox 30 mg SQ daily (WT < 150 kg, CrCl > 10-29 mL/min) *Enoxaparin/Lovenox 30 mg SQ BID (WT < 150 kg, CrCl > 30 mL/min) AND *Sequential Compression Device (SCD) Assessment and Plan Problem List: (1) Sepsis ICD Code: A41.9 - Sepsis, unspecified organism (2) Pyelonephritis ICD Code: N12 - Tubulo-interstitial nephritis, not specified as acute or chronic Status: Acute (3) Nausea ICD Code: R11.0 - Nausea (4) Vomiting ICD Code: R11.10 - Vomiting, unspecified (5) UTI (urinary tract infection) ICD Code: N39.0 - Urinary tract infection, site not specified Status: Acute (6) History of Clostridium difficile infection ICD Code: Z86.19 - Personal history of other infectious and parasitic diseases (7) Hypokalemia ICD Code: E87.6 - Hypokalemia Status: Acute (8) Dizziness ICD Code: R42 - Dizziness and giddiness Assessment and Plan Ms. Dawkins is a 57 year old female with a history of severe sepsis secondary to urinary infection resulting from obstructive nephrolithiasis treated by Dr. Lopez at [facility], C. difficile colitis, anxiety/depression, IBS, GERD , and restless leg syndrome who presented to [facility] on 11/11/16 c/o severe left flank pain, hematuria, and dysuria accompanied by fever, chills, nausea and vomiting. The patient is found to have temperature of 103.6 and tachycardia with abnormal UA and examination c/w sepsis and pyelonephritis. Sepsis/Pyelonephritis - Intermittently febrile, tachycardic, with UA consistent with UTI - meets sepsis criteria - Cipro 400 mg IV every 12 hours - Lactic acid 1.0 - Await urine culture and adjust treatment if indicated - consider urology consult if necessary - Hydrocodone 5/325 mg every 4 h PRN pain > 5 and IV morphine 2 mg IV q3h PRN breakthrough pain Hypokalemia - Potassium 3.4 on admission; replaced orally - Repeat BMP in a.m. and follow results - PERRLA replace potassium if necessary Dizziness - likely secondary to sepsis - head CT normal - check orthostatic VS qshift - neurochecks every 4 hours - check TSH Nausea with vomiting History of C. Difficile colitis - check for c. difficile - Stool for culture and WBCs DVT prophylaxis - SCDs/TEDs Awaiting medication reconciliation to restart home medications Discussed Condition With Dr. Segura, patient, patient's RN Physician Certification 2 Midnight Certification Type: Admission for Inpatient Services Order for Inpatient Services The services are ordered in accordance with Medicare regulations or non- Medicare payer requirements, as applicable. In the case of services not specified as inpatient-only, they are appropriately provided as inpatient services in accordance with the 2-midnight benchmark. Estimated LOS (days): 3 days is the estimated time the patient will need to remain in the hospital, assuming treatment plan goals are met and no additional complications. Post-Hospital Plan: Not yet determined Problem Qualifiers (1) UTI (urinary tract infection): Qualified Codes: N30.00 - Acute cystitis without hematuria Miryam Poon Nov 11, 2017 23:56
[2017-11-12] VITALS (11 sets, daily range): BP systolic 85–126; BP diastolic 52–77; PULSE 80–96; RESP 16–19; TEMP 97.1–98.9; O2SAT 95–98
[2017-11-12] MEDS ORDERED: BACL10TA PO (02:06)
[2017-11-12] MEDS ORDERED: ROPI1TAB PO (02:06)
[2017-11-12] MEDS ORDERED: TRAM50TA PO (02:06)
[2017-11-12] MEDS ORDERED: TRAZ50TA12 PO (02:06)
[2017-11-12] MEDS ORDERED: QUET-73 PO (02:06)
[2017-11-12] MEDS ORDERED: CLON0.5T PO (02:06)
[2017-11-12] MEDS: ACETAMINOPHEN/HYDROcodone 325 MG/5 MG TAB PO PRN ×3 (04:01→22:19)
[2017-11-12 04:44] LABS: AUTOMATED NEUTROPHIL # 3.8 TH/MM3 (1.8-7.7); BASOPHIL % 0.7 % (0.0-2.0); EOSINOPHIL # 0.1 TH/MM3 (0-0.4); EOSINOPHIL % 0.9 % (0.0-4.0); HEMATOCRIT 30.8 % (35.0-46.0); HEMOGLOBIN 10.8 GM/DL (11.6-15.3); LYMPH % 33.6 % (9.0-44.0); LYMPHOCYTE # 2.3 TH/MM3 (1.0-4.8); MEAN CELL VOLUME 87.1 FL (80.0-100.0); MEAN CORPUSCULAR HEMOGLOBIN 30.7 PG (27.0-34.0); MEAN CORPUSCULAR HGB CONC 35.2 % (32.0-36.0); MEAN PLATELET VOLUME 8.7 FL (7.0-11.0); MONO % 8.6 % (0.0-8.0); MONOCYTE # 0.6 TH/MM3 (0-0.9); NEUT % 56.2 % (16.0-70.0); PLATELET COUNT 151 TH/MM3 (150-450); RED BLOOD COUNT 3.53 MIL/MM3 (4.00-5.30); RED CELL DISTRIBUTION WIDTH 13.9 % (11.6-17.2); WHITE BLOOD COUNT 6.8 TH/MM3 (4.0-11.0)
[2017-11-12 05:12] LABS: BICARBONATE 25.8 MEQ/L (21.0-32.0); CALCIUM 8.4 MG/DL (8.5-10.1); CREATININE 0.84 MG/DL (0.50-1.00)
[2017-11-12] MEDS: SODIUM CHLORIDE 0.9% FLUSH 10 ML FLUSH IV FLUSH SCH ×2 (09:00→21:00)
[2017-11-12] MEDS ORDERED: SODIUM CHLOR 0.9% 1000 ML INJ 1,000 ML IV ONE (09:15)
[2017-11-12] MEDS: BACLOFEN 10 MG TAB PO SCH ×3 (09:32→17:40)
[2017-11-12] MEDS: QUEtiapine FUMARATE 200 MG TAB PO SCH ×2 (09:33→22:19)
[2017-11-12] MEDS: clonazePAM 0.5 MG TAB PO SCH ×2 (09:33→22:19)
[2017-11-12] MEDS: SODIUM CHLOR 0.9% 1000 ML INJ 1,000 ML IV SCH ×3 (09:34→23:23)
[2017-11-12] MEDS: CIPROFLOXACIN 400 MG PREMIX 200 ML IV SCH ×2 (11:02→23:23)
--- NOTE | 2017-11-12 13:39 | HHI.PR ---
Subjective Remarks Follow-up for pyelonephritis Patient had multiple admissions secondary this issue. She continued to have dysuria with discomfort with urination. Also complaining of left CVA tenderness. She remains afebrile. No other complaints. Objective Vitals Vital Signs Date Time Temp Pulse Resp B/P (MAP) Pulse Ox O2 Delivery O2 Flow Rate FiO2 11/12/17 10:55 84 18 111/57 (75) 97 Room Air 11/12/17 09:00 98.5 82 18 98/57 (71) 96 Room Air 11/12/17 07:13 98.4 85 18 90/52 (65) 97 Room Air 11/12/17 07:10 82 16 11/12/17 06:25 18 11/12/17 06:22 18 11/12/17 03:49 93 18 92/54 (67) 11/12/17 03:45 89 18 85/56 (66) 97 Room Air 11/12/17 03:43 80 18 89/54 (66) 97 Room Air 11/12/17 00:39 98.9 96 18 122/71 (88) 98 11/11/17 22:01 102.0 106 18 136/63 (87) 100 Room Air 11/11/17 20:47 95 18 123/74 (90) 100 Room Air 11/11/17 18:43 95 Room Air 11/11/17 18:29 98.6 11/11/17 18:13 103.6 128 22 140/87 (104) 95 I/O 11/11/17 11/11/17 11/11/17 11/12/17 11/12/17 11/12/17 07:00 15:00 23:00 07:00 15:00 23:00 Intake Total 1100 ml 200 ml 1000 ml Balance 1100 ml 200 ml 1000 ml Intake IV Total 1100 ml 200 ml 1000 ml Result Diagram: 11/12/1741611/12/17416 Objective Remarks GENERAL: in NAD SKIN: Warm and dry. HEAD: Normocephalic. EYES: No scleral icterus. No injection or drainage. NECK: Supple, trachea midline. No JVD or lymphadenopathy. CARDIOVASCULAR: Regular rate and rhythm without murmurs, gallops, or rubs. RESPIRATORY: Breath sounds equal bilaterally. No accessory muscle use. GASTROINTESTINAL: Abdomen soft, non-tender, nondistended. MUSCULOSKELETAL: No cyanosis, or edema. BACK: Nontender without obvious deformity. +left CVA tenderness A/P Problem List: (1) Sepsis ICD Code: A41.9 - Sepsis, unspecified organism (2) Pyelonephritis ICD Code: N12 - Tubulo-interstitial nephritis, not specified as acute or chronic Status: Acute (3) Nausea ICD Code: R11.0 - Nausea (4) Vomiting ICD Code: R11.10 - Vomiting, unspecified (5) UTI (urinary tract infection) ICD Code: N39.0 - Urinary tract infection, site not specified Status: Acute (6) History of Clostridium difficile infection ICD Code: Z86.19 - Personal history of other infectious and parasitic diseases (7) Hypokalemia ICD Code: E87.6 - Hypokalemia Status: Acute (8) Dizziness ICD Code: R42 - Dizziness and giddiness Assessment and Plan Ms. Dawkins is a 57 year old female with a history of severe sepsis secondary to urinary infection resulting from obstructive nephrolithiasis treated by Dr. Lopez at [facility], C. difficile colitis, anxiety/depression, IBS, GERD , and restless leg syndrome who presented to [facility] on 11/11/16 c/o severe left flank pain, hematuria, and dysuria accompanied by fever, chills, nausea and vomiting. Pyelonephritis - Intermittently febrile, tachycardia seems to be more due to pain since that resolved quickly with pain medication, with UA consistent with UTI. - Patient was started on Cipro 400 mg IV every 12 hours, will continue Cipro pending urine cultures. - Lactic acid 1.0. Pending blood cultures. - Hydrocodone 5/325 mg every 4 h PRN pain > 5 and IV morphine 2 mg IV q3h PRN breakthrough pain Hypokalemia - Potassium 3.4 on admission -Replenish as needed. Dizziness - head CT normal - Denied any dizziness. May be secondary to hypotension. -Orthostatics order still pending. Will place another order. Nausea with vomiting History of C. Difficile colitis - check for c. difficile - Stool for culture and WBCs Hypotension -May be secondary to dehydration and underlying infection. Will give normal saline bolus and placed on IV fluids. DVT prophylaxis - SCDs/TEDs Problem Qualifiers (1) UTI (urinary tract infection): Qualified Codes: N30.00 - Acute cystitis without hematuria Eloise Reaves MD Nov 12, 2017 13:39
[2017-11-12] MEDS ORDERED: POTASSIUM CHLORIDE 25 MEQ EFFERVESCENT TAB PO ONE (13:45)
--- NOTE | 2017-11-12 15:08 | EKG ---
Date Performed: 11/11/2017 Time Performed: 18:59:24 PTAGE: 57 years EKG: SINUS TACHYCARDIA NONSPECIFIC T-WAVE ABNORMALITY ABNORMAL RHYTHM ECG PREVIOUS TRACING : 09/08/2015 13.14 Compared to prior tracing no significant change DOCTOR: Yury Ash Interpretating Date/Time 11/12/2017 15:06:40
[2017-11-12] MEDS: MORPHINE SULFATE 2 MG/ML INJ IV PUSH PRN (16:09)
[2017-11-12] MEDS: traZODone HCL 50 MG TAB PO SCH (22:19)
[2017-11-13] VITALS (10 sets, daily range): BP systolic 107–140; BP diastolic 63–86; PULSE 68–109; RESP 16–20; TEMP 97.2–98; O2SAT 92–98
[2017-11-13] MEDS: MORPHINE SULFATE 2 MG/ML INJ IV PUSH PRN ×2 (01:28→16:37)
[2017-11-13] MEDS: ACETAMINOPHEN/HYDROcodone 325 MG/5 MG TAB PO PRN ×3 (05:45→19:32)
[2017-11-13] MEDS: SODIUM CHLORIDE 0.9% FLUSH 10 ML FLUSH IV FLUSH SCH ×2 (07:45→20:55)
[2017-11-13] MEDS ORDERED: ONDANSETRON HCL 4 MG/2 ML VIAL IV PUSH PRN (08:00)
[2017-11-13] MEDS ORDERED: ACETAMINOPHEN 325 MG TAB PO PRN (08:00)
[2017-11-13] MEDS: BACLOFEN 10 MG TAB PO SCH ×3 (08:18→16:37)
[2017-11-13] MEDS: QUEtiapine FUMARATE 200 MG TAB PO SCH ×2 (08:18→20:55)
[2017-11-13] MEDS: clonazePAM 0.5 MG TAB PO SCH ×2 (08:18→20:55)
[2017-11-13 10:46] LABS: HEMATOCRIT 28.8 % (35.0-46.0); MEAN CELL VOLUME 87.6 FL (80.0-100.0); MEAN CORPUSCULAR HEMOGLOBIN 30.3 PG (27.0-34.0); MEAN CORPUSCULAR HGB CONC 34.5 % (32.0-36.0); MEAN PLATELET VOLUME 8.7 FL (7.0-11.0); PLATELET COUNT 132 TH/MM3 (150-450); RED BLOOD COUNT 3.29 MIL/MM3 (4.00-5.30); RED CELL DISTRIBUTION WIDTH 13.2 % (11.6-17.2); WHITE BLOOD COUNT 3.9 TH/MM3 (4.0-11.0)
[2017-11-13 11:16] LABS: BICARBONATE 23.6 MEQ/L (21.0-32.0); CALCIUM 8.6 MG/DL (8.5-10.1); CREATININE 0.76 MG/DL (0.50-1.00)
[2017-11-13] MEDS: CIPROFLOXACIN 400 MG PREMIX 200 ML IV SCH ×2 (11:16→22:17)
--- NOTE | 2017-11-13 11:46 | HHI.PR ---
Subjective Remarks Follow-up sepsis/pyelonephritis 11/13/17-patient seen and examined, complains of left flank pain. Afebrile Objective Vitals Vital Signs Date Time Temp Pulse Resp B/P (MAP) Pulse Ox O2 Delivery O2 Flow Rate FiO2 11/13/17 08:00 97.7 77 17 120/63 (82) 92 11/13/17 04:00 71 11/13/17 04:00 98.0 68 20 118/75 (89) 97 11/13/17 00:00 97.9 80 19 125/75 (92) 96 11/13/17 00:00 89 11/12/17 20:00 Room Air 11/12/17 20:00 97.1 83 19 126/77 (93) 95 11/12/17 20:00 91 11/12/17 16:06 97.5 80 16 105/68 (80) 95 11/12/17 15:20 82 11/12/17 12:12 97.4 82 17 103/67 (79) 95 I/O 11/12/17 11/12/17 11/12/17 11/13/17 11/13/17 11/13/17 07:00 15:00 23:00 07:00 15:00 23:00 Intake Total 200 ml 1000 ml 400 ml 550 ml Balance 200 ml 1000 ml 400 ml 550 ml Intake Oral 400 ml 550 ml IV Total 200 ml 1000 ml # Voids 0 3 # Bowel Movements 0 0 Result Diagram: 11/13/17 1000 11/13/17 1000 Imaging Last Impressions Chest X-Ray 11/11/17 1840 Signed Impressions: Service Date/Time: Saturday, November 11, 2017 18:58 - CONCLUSION: Normal examination. Hitesh Middleton MD Head CT 11/11/17 0000 Signed Impressions: Service Date/Time: Saturday, November 11, 2017 20:17 - CONCLUSION: Normal examination. Hitesh Middleton MD Abdomen/Pelvis CT 11/11/17 0000 Signed Impressions: Service Date/Time: Saturday, November 11, 2017 20:20 - CONCLUSION: Left-sided double-J ureteral catheter in good position. 2-3 mm stone at the level of L4-5 disc space on the left. Numerous gallstones without evidence of acute cholecystitis. Hitesh Middleton MD Objective Remarks GENERAL: NAD SKIN: Warm and dry. HEAD: Normocephalic. EYES: No scleral icterus. No injection or drainage. NECK: Supple, trachea midline. No JVD or lymphadenopathy. CARDIOVASCULAR: Regular rate and rhythm without murmurs, gallops, or rubs. RESPIRATORY: Breath sounds equal bilaterally. No accessory muscle use. GASTROINTESTINAL: Abdomen soft, non-tender, nondistended. MUSCULOSKELETAL: No cyanosis, or edema. BACK: Nontender without obvious deformity. +Left CVA tenderness. A/P Problem List: (1) Sepsis ICD Code: A41.9 - Sepsis, unspecified organism (2) Pyelonephritis ICD Code: N12 - Tubulo-interstitial nephritis, not specified as acute or chronic Status: Acute (3) Nausea ICD Code: R11.0 - Nausea (4) Vomiting ICD Code: R11.10 - Vomiting, unspecified (5) UTI (urinary tract infection) ICD Code: N39.0 - Urinary tract infection, site not specified Status: Acute (6) History of Clostridium difficile infection ICD Code: Z86.19 - Personal history of other infectious and parasitic diseases (7) Hypokalemia ICD Code: E87.6 - Hypokalemia Status: Acute (8) Dizziness ICD Code: R42 - Dizziness and giddiness Assessment and Plan 57-year-old female with Pyelonephritis -Currently on IV Cipro pending culture reports -Urology consultation when necessary secondary to patient history of ureteral stent - Hydrocodone 5/325 mg every 4 h PRN pain > 5 and IV morphine 2 mg IV q3h PRN breakthrough pain Hypokalemia -Please electronic and monitor Dizziness - head CT normal -Resolved -PT consult to treat and eval Nausea with vomiting-resolved History of C. Difficile colitis - check for c. difficile - Stool for culture and WBCs Hypotension -Resolved with IV fluid hydration DVT prophylaxis - SCDs/TEDs Problem Qualifiers (1) UTI (urinary tract infection): Qualified Codes: N30.00 - Acute cystitis without hematuria Cooper Wilson MD Nov 13, 2017 11:46
[2017-11-13] MEDS ORDERED: POTASSIUM CHLORIDE 10 MEQ CONTROLLED RELEASE TAB PO ONE (12:00)
[2017-11-13] MEDS: SODIUM CHLOR 0.9% 1000 ML INJ 1,000 ML IV SCH (12:18)
[2017-11-13] MEDS: traZODone HCL 50 MG TAB PO SCH (20:55)
[2017-11-14] VITALS (8 sets, daily range): BP systolic 120–157; BP diastolic 67–85; PULSE 77–94; RESP 16–20; TEMP 97.4–98.6; O2SAT 93–98
[2017-11-14] MEDS: SODIUM CHLOR 0.9% 1000 ML INJ 1,000 ML IV SCH ×3 (01:55→21:15)
[2017-11-14] MEDS: ACETAMINOPHEN/HYDROcodone 325 MG/5 MG TAB PO PRN ×4 (01:55→21:48)
[2017-11-14] MEDS: MORPHINE SULFATE 2 MG/ML INJ IV PUSH PRN ×3 (05:36→18:11)
[2017-11-14] MEDS: SODIUM CHLORIDE 0.9% FLUSH 10 ML FLUSH IV FLUSH PRN (05:37)
[2017-11-14] MEDS: clonazePAM 0.5 MG TAB PO SCH ×2 (08:34→21:48)
[2017-11-14] MEDS: QUEtiapine FUMARATE 200 MG TAB PO SCH ×2 (08:34→21:48)
[2017-11-14] MEDS: BACLOFEN 10 MG TAB PO SCH ×3 (08:34→18:10)
[2017-11-14] MEDS: SODIUM CHLORIDE 0.9% FLUSH 10 ML FLUSH IV FLUSH SCH ×2 (09:00→21:48)
[2017-11-14] MEDS: CIPROFLOXACIN 400 MG PREMIX 200 ML IV SCH ×2 (11:53→21:48)
[2017-11-14 12:40] LABS: AUTOMATED NEUTROPHIL # 1.7 TH/MM3 (1.8-7.7); BASOPHIL % 1.2 % (0.0-2.0); EOSINOPHIL # 0.4 TH/MM3 (0-0.4); EOSINOPHIL % 9.4 % (0.0-4.0); HEMATOCRIT 30.5 % (35.0-46.0); HEMOGLOBIN 10.7 GM/DL (11.6-15.3); LYMPH % 42.1 % (9.0-44.0); LYMPHOCYTE # 1.8 TH/MM3 (1.0-4.8); MEAN CELL VOLUME 86.3 FL (80.0-100.0); MEAN CORPUSCULAR HEMOGLOBIN 30.3 PG (27.0-34.0); MEAN CORPUSCULAR HGB CONC 35.1 % (32.0-36.0); MEAN PLATELET VOLUME 8.8 FL (7.0-11.0); MONO % 7.2 % (0.0-8.0); MONOCYTE # 0.3 TH/MM3 (0-0.9); NEUT % 40.1 % (16.0-70.0); PLATELET COUNT 171 TH/MM3 (150-450); RED BLOOD COUNT 3.54 MIL/MM3 (4.00-5.30); RED CELL DISTRIBUTION WIDTH 13.1 % (11.6-17.2); WHITE BLOOD COUNT 4.2 TH/MM3 (4.0-11.0)
[2017-11-14 13:08] LABS: BICARBONATE 27.3 MEQ/L (21.0-32.0); CALCIUM 8.8 MG/DL (8.5-10.1); CREATININE 0.68 MG/DL (0.50-1.00)
--- NOTE | 2017-11-14 17:18 | HHI.PR ---
Subjective Remarks Follow-up sepsis/pyelonephritis 11/13/17-patient seen and examined, complains of left flank pain. Afebrile 111 COMPLAINS OF ALOT OF LEFT FLANK PAIN STILL CONSULT UROLOGY Objective Vitals Vital Signs Date Time Temp Pulse Resp B/P (MAP) Pulse Ox O2 Delivery O2 Flow Rate FiO2 11/14/17 16:00 97.7 94 20 120/73 (89) 95 11/14/17 12:00 97.4 82 20 124/67 (86) 97 11/14/17 08:00 98.1 85 20 148/81 (103) 97 140/69 (92) 157/85 (109) 11/14/17 08:00 82 11/14/17 08:00 96 Room Air 11/14/17 04:00 98.6 81 16 126/72 (90) 93 11/14/17 04:00 Room Air 11/14/17 03:45 77 11/14/17 00:00 98.4 83 16 140/78 (98) 93 11/14/17 00:00 Room Air 11/13/17 23:50 79 11/13/17 20:00 97.8 80 16 140/77 (98) 98 136/85 (102) 119/86 (97) 11/13/17 20:00 Room Air 11/13/17 19:46 90 I/O 11/13/17 11/13/17 11/13/17 11/14/17 11/14/17 11/14/17 07:00 15:00 23:00 07:00 15:00 23:00 Intake Total 550 ml 200 ml 960 ml 1560 ml Balance 550 ml 200 ml 960 ml 1560 ml Intake Oral 550 ml 960 ml 360 ml IV Total 200 ml 1200 ml # Voids 3 3 4 1 # Bowel Movements 0 Result Diagram: 11/14/17 1149 11/14/17 1149 Other Results Laboratory Tests Test 11/11/17 18:35 11/11/17 18:45 11/12/17 04:17 11/13/17 10:00 Urine Color YELLOW Urine Turbidity HAZY Urine pH 7.0 Urine Specific [place] 1.013 Urine Protein 30 mg/dL Urine Glucose (UA) NEG mg/dL Urine Ketones NEG mg/dL Urine Occult Blood LARGE Urine Nitrite POS Urine Bilirubin NEG Urine Urobilinogen LESS THAN 2.0 MG/DL Urine Leukocyte Esterase LARGE Urine RBC /hpf Urine WBC /hpf Urine WBC Clumps OCC Urine Squamous Epithelial Cells 2 /hpf Urine Bacteria RARE /hpf Urine Mucus FEW /lpf Microscopic Urinalysis Comment CULTURE INDICATED White Blood Count 7.3 TH/MM3 6.8 TH/MM3 3.9 TH/MM3 Red Blood Count 3.61 MIL/MM3 3.53 MIL/MM3 3.29 MIL/MM3 Hemoglobin 11.1 GM/DL 10.8 GM/DL 10.0 GM/DL Hematocrit 31.5 % 30.8 % 28.8 % Mean Corpuscular Volume 87.2 FL 87.1 FL 87.6 FL Mean Corpuscular Hemoglobin 30.8 PG 30.7 PG 30.3 PG Mean Corpuscular Hemoglobin Concent 35.3 % 35.2 % 34.5 % Red Cell Distribution Width 13.5 % 13.9 % 13.2 % Platelet Count 154 TH/MM3 151 TH/MM3 132 TH/MM3 Mean Platelet Volume 9.0 FL 8.7 FL 8.7 FL Neutrophils (%) (Auto) 77.2 % 56.2 % Lymphocytes (%) (Auto) 14.7 % 33.6 % Monocytes (%) (Auto) 6.6 % 8.6 % Eosinophils (%) (Auto) 0.9 % 0.9 % Basophils (%) (Auto) 0.6 % 0.7 % Neutrophils # (Auto) 5.6 TH/MM3 3.8 TH/MM3 Lymphocytes # (Auto) 1.1 TH/MM3 2.3 TH/MM3 Monocytes # (Auto) 0.5 TH/MM3 0.6 TH/MM3 Eosinophils # (Auto) 0.1 TH/MM3 0.1 TH/MM3 Basophils # (Auto) 0.0 TH/MM3 0.0 TH/MM3 CBC Comment DIFF FINAL DIFF FINAL Differential Comment Prothrombin Time 10.5 SEC Prothromb Time International Ratio 1.0 RATIO Activated Partial Thromboplast Time 26.6 SEC Blood Urea Nitrogen 15 MG/DL 10 MG/DL 7 MG/DL Creatinine 1.01 MG/DL 0.84 MG/DL 0.76 MG/DL Random Glucose 116 MG/DL 99 MG/DL 137 MG/DL Total Protein 6.8 GM/DL Albumin 3.5 GM/DL Calcium Level 8.5 MG/DL 8.4 MG/DL 8.6 MG/DL Alkaline Phosphatase 77 U/L Aspartate Amino Transf (AST/SGOT) 10 U/L Alanine Aminotransferase (ALT/SGPT) 16 U/L Total Bilirubin 0.6 MG/DL Sodium Level 137 MEQ/L 141 MEQ/L 143 MEQ/L Potassium Level 3.4 MEQ/L 3.4 MEQ/L 3.3 MEQ/L Chloride Level 104 MEQ/L 107 MEQ/L 110 MEQ/L Carbon Dioxide Level 27.3 MEQ/L 25.8 MEQ/L 23.6 MEQ/L Anion Gap 6 MEQ/L 8 MEQ/L 9 MEQ/L Estimat Glomerular Filtration Rate 57 ML/MIN 70 ML/MIN 79 ML/MIN Lactic Acid Level 1.0 mmol/L Lipase 83 U/L Thyroid Stimulating Hormone 3rd Gen 1.670 uIU/ML Test 11/14/17 11:49 White Blood Count 4.2 TH/MM3 Red Blood Count 3.54 MIL/MM3 Hemoglobin 10.7 GM/DL Hematocrit 30.5 % Mean Corpuscular Volume 86.3 FL Mean Corpuscular Hemoglobin 30.3 PG Mean Corpuscular Hemoglobin Concent 35.1 % Red Cell Distribution Width 13.1 % Platelet Count 171 TH/MM3 Mean Platelet Volume 8.8 FL Neutrophils (%) (Auto) 40.1 % Lymphocytes (%) (Auto) 42.1 % Monocytes (%) (Auto) 7.2 % Eosinophils (%) (Auto) 9.4 % Basophils (%) (Auto) 1.2 % Neutrophils # (Auto) 1.7 TH/MM3 Lymphocytes # (Auto) 1.8 TH/MM3 Monocytes # (Auto) 0.3 TH/MM3 Eosinophils # (Auto) 0.4 TH/MM3 Basophils # (Auto) 0.0 TH/MM3 CBC Comment DIFF FINAL Differential Comment Blood Urea Nitrogen 7 MG/DL Creatinine 0.68 MG/DL Random Glucose 97 MG/DL Calcium Level 8.8 MG/DL Sodium Level 145 MEQ/L Potassium Level 3.5 MEQ/L Chloride Level 111 MEQ/L Carbon Dioxide Level 27.3 MEQ/L Anion Gap 7 MEQ/L Estimat Glomerular Filtration Rate 90 ML/MIN Imaging Last Impressions Chest X-Ray 11/11/17 1840 Signed Impressions: Service Date/Time: Saturday, November 11, 2017 18:58 - CONCLUSION: Normal examination. Hitesh Middleton MD Head CT 11/11/17 0000 Signed Impressions: Service Date/Time: Saturday, November 11, 2017 20:17 - CONCLUSION: Normal examination. Hitesh Middleton MD Abdomen/Pelvis CT 11/11/17 0000 Signed Impressions: Service Date/Time: Saturday, November 11, 2017 20:20 - CONCLUSION: Left-sided double-J ureteral catheter in good position. 2-3 mm stone at the level of L4-5 disc space on the left. Numerous gallstones without evidence of acute cholecystitis. Hitesh Middleton MD Objective Remarks GENERAL: Awake alert oriented talkative and cooperative --appears somewhat uncomfortable SKIN: Warm and dry. HEAD: Atraumatic. Normocephalic. EYES: Pupils equal and round. No scleral icterus. No injection or drainage. Extraocular muscles intact ENT: No nasal bleeding or discharge. Mucous membranes pink and moist. Tongue is midline NECK: Trachea midline. No JVD. Supple CARDIOVASCULAR: Regular rate and rhythm. S1 and S2 no S3 or S4 no heave or thrill or rub or gallop RESPIRATORY: No accessory muscle use. Clear to auscultation. Breath sounds equal bilaterally. GASTROINTESTINAL: Abdomen soft, non-tender, nondistended. Hepatic and splenic margins not palpable. Left-sided CVA tenderness MUSCULOSKELETAL: Extremities without clubbing, cyanosis, or edema. No obvious deformities. NEUROLOGICAL: Awake and alert. No obvious cranial nerve deficits. Motor grossly within normal limits. Five out of 5 muscle strength in the arms and legs. Normal speech. PSYCHIATRIC: Appropriate mood and affect; insight and judgment normal. Medications and IVs Current Medications Ondansetron HCl (Zofran Inj) 4 mg ONCE ONCE IV PUSH Last administered on 19:36; Start 11/11/17 at 19:15; Stop 11/11/17 at 19:16; Status DC Sodium Chloride 1,000 ml @ 999 mls/hr BOLUS ONCE IV Last administered on 19:36; Start 11/11/17 at 19:15; Stop 11/11/17 at 20:15; Status DC Morphine Sulfate (Morphine Inj) 2 mg ONCE ONCE IV PUSH Last administered on 19:36; Start 11/11/17 at 19:15; Stop 11/11/17 at 19:16; Status DC Iohexol (Omnipaque 350 Inj) 96 ml STK-MED ONCE IVCONTRAST Last administered on 11/11/17 20:30; Start 11/11/17 at 20:30; Stop 11/11/17 at 20:39; Status DC Ceftriaxone Sodium 1000 mg/ Sodium Chloride 100 ml @ 200 mls/hr ONCE ONCE IV Last administered on 11/11/17at 21:20; Start 11/11/17 at 21:00; Stop 11/11/17 at 21: 29; Status DC Sodium Chloride (NS Flush) 2 ml UNSCH PRN IV FLUSH FLUSH AFTER USING IV ACCESS Last administered on 11/14/17at 05:37; Start 11/11/17 at 22:15 Sodium Chloride (NS Flush) 2 ml BID IV FLUSH Last administered on 11/14/17at 09: 00; Start 11/12/17 at 09:00 Naloxone HCl (Narcan Inj) 0.4 mg UNSCH PRN IV PUSH SEE LABEL COMMENTS; Start at 22:15 Potassium Bicarb/ Potassium Chloride (K-Lyte Cl Eff) 50 meq ONCE ONCE PO Last administered on 11/11/17at 23:33; Start 11/11/17 at 22:15; Stop 11/11/17 at 22: 18; Status DC Ciprofloxacin/ Dextrose 200 ml @ 200 mls/hr Q12H IV Last administered on at 11:53; Start 11/11/17 at 23:00 Acetaminophen (Tylenol) 650 mg Q4H PRN PO temp > 101; Start 11/11/17 at 23:15; Stop 11/13/17 at 08:59; Status DC Morphine Sulfate (Morphine Inj) 2 mg Q3H PRN IV PUSH breakthrough pain Last administered on 11/14/17at 11:59; Start 11/12/17 at 00:00 Acetaminophen/ Hydrocodone Bitart ([place] 5-325 Mg) 1 tab Q6H PRN PO pain > 5 Last administered on 11/14/17 16:14; Start 11/12/17 at 01:00 Baclofen (Lioresal) 10 mg TID PO Last administered on 11/14/17 13:41; Start at 09:00 Clonazepam (KlonoPIN) 0.5 mg BID PO Last administered on 1/11/18at 08:34; Start 11/12/17 at 09:00 Ropinirole HCl (Requip) 1 mg TID PO Last administered on 11/14/17at 13:41; Start 11/12/17 at 09:00 Trazodone HCl (Desyrel) 50 mg HS PO Last administered on 11/13/17at 20:55; Start 11/12/17 at 21:00 Quetiapine Fumarate (SEROquel) 200 mg BID PO Last administered on 11/14/17 08: 34; Start 11/12/17 at 09:00 Sodium Chloride 1,000 ml @ 100 mls/hr Q10H IV Last administered on 11/14/17at 01:55; Start 11/12/17 at 09:15 Sodium Chloride 1,000 ml @ 999 mls/hr BOLUS ONCE IV Last administered on at 09:34; Start 11/12/17 at 09:15; Stop 11/12/17 at 10:15; Status DC Potassium Bicarb/ Potassium Chloride (K-Lyte Cl Eff) 50 meq ONCE ONCE PO Last administered on 11/12/17at 14:18; Start 11/12/17 at 13:45; Stop 11/12/17 at 13: 47; Status DC Acetaminophen (Tylenol) 650 mg Q4H PRN PO Temp > 100.4; Start 11/13/17 at 08:00 Ondansetron HCl (Zofran Inj) 4 mg Q6H PRN IV PUSH NAUSEA; Start 11/13/17 at 08: 00 Potassium Chloride (KCl) 60 meq ONCE ONCE PO Last administered on 11/13/17at 12 :18; Start 11/13/17 at 12:00; Stop 11/13/17 at 12:02; Status DC A/P Problem List: (1) Sepsis ICD Code: A41.9 - Sepsis, unspecified organism (2) Pyelonephritis ICD Code: N12 - Tubulo-interstitial nephritis, not specified as acute or chronic Status: Acute (3) Nausea ICD Code: R11.0 - Nausea (4) Vomiting ICD Code: R11.10 - Vomiting, unspecified (5) UTI (urinary tract infection) ICD Code: N39.0 - Urinary tract infection, site not specified Status: Acute (6) History of Clostridium difficile infection ICD Code: Z86.19 - Personal history of other infectious and parasitic diseases (7) Hypokalemia ICD Code: E87.6 - Hypokalemia Status: Acute (8) Dizziness ICD Code: R42 - Dizziness and giddiness Assessment and Plan 57-year-old female with Pyelonephritis -Currently on IV Cipro ----positive for Pseudomonas continue on the IV Cipro -Urology consultation when necessary secondary to patient history of ureteral stent - Hydrocodone 5/325 mg every 4 h PRN pain > 5 and IV morphine 2 mg IV q3h PRN breakthrough pain Left-sided CVA tenderness Hypokalemia -REPLACE and monitor Dizziness - head CT normal -Resolved -PT consult to treat and eval Nausea with vomiting-resolved History of C. Difficile colitis - check for c. difficile - Stool for culture and WBCs Hypotension -Resolved with IV fluid hydration DVT prophylaxis - SCDs/TEDs CONSULT UROLOGY Discharge Planning Pending urology clearance Problem Qualifiers (1) UTI (urinary tract infection): Qualified Codes: N30.00 - Acute cystitis without hematuria Erick Ornelas DO Nov 14, 2017 17:18
[2017-11-14] MEDS: traZODone HCL 50 MG TAB PO SCH (21:47)
[2017-11-15] VITALS (9 sets, daily range): BP systolic 112–149; BP diastolic 69–90; PULSE 77–106; RESP 16–21; TEMP 97.4–98.4; O2SAT 95–100
[2017-11-15] MEDS: SODIUM CHLORIDE 0.9% FLUSH 10 ML FLUSH IV FLUSH PRN (02:40)
[2017-11-15] MEDS: MORPHINE SULFATE 2 MG/ML INJ IV PUSH PRN ×4 (02:40→21:15)
[2017-11-15] MEDS: ACETAMINOPHEN/HYDROcodone 325 MG/5 MG TAB PO PRN ×3 (05:40→19:51)
[2017-11-15] MEDS: SODIUM CHLOR 0.9% 1000 ML INJ 1,000 ML IV SCH ×2 (05:41→17:11)
[2017-11-15] MEDS: BACLOFEN 10 MG TAB PO SCH ×3 (10:05→17:10)
[2017-11-15] MEDS: SODIUM CHLORIDE 0.9% FLUSH 10 ML FLUSH IV FLUSH SCH ×2 (10:05→19:51)
[2017-11-15] MEDS: clonazePAM 0.5 MG TAB PO SCH ×2 (10:05→19:51)
[2017-11-15] MEDS: QUEtiapine FUMARATE 200 MG TAB PO SCH ×2 (10:05→19:51)
[2017-11-15] MEDS: CIPROFLOXACIN 400 MG PREMIX 200 ML IV SCH ×2 (10:15→22:02)
[2017-11-15 10:28] LABS: AUTOMATED NEUTROPHIL # 1.7 TH/MM3 (1.8-7.7); EOSINOPHIL # 0.3 TH/MM3 (0-0.4); HEMATOCRIT 33.1 % (35.0-46.0); HEMOGLOBIN 11.3 GM/DL (11.6-15.3); LYMPH % 43.3 % (9.0-44.0); LYMPHOCYTE # 1.7 TH/MM3 (1.0-4.8); MEAN CELL VOLUME 86.6 FL (80.0-100.0); MEAN CORPUSCULAR HEMOGLOBIN 29.6 PG (27.0-34.0); MEAN CORPUSCULAR HGB CONC 34.2 % (32.0-36.0); MEAN PLATELET VOLUME 8.1 FL (7.0-11.0); MONO % 6.1 % (0.0-8.0); MONOCYTE # 0.2 TH/MM3 (0-0.9); NEUT % 42.6 % (16.0-70.0); PLATELET COUNT 181 TH/MM3 (150-450); RED BLOOD COUNT 3.82 MIL/MM3 (4.00-5.30); RED CELL DISTRIBUTION WIDTH 13.3 % (11.6-17.2); WHITE BLOOD COUNT 3.9 TH/MM3 (4.0-11.0)
[2017-11-15 10:51] LABS: ALBUMIN 3.5 GM/DL (3.4-5.0); AST (GOT) 13 U/L (15-37); BICARBONATE 29.9 MEQ/L (21.0-32.0); BLOOD UREA NITROGEN 10 MG/DL (7-18); CALCIUM 8.9 MG/DL (8.5-10.1); CHLORIDE 107 MEQ/L (98-107); CREATININE 0.83 MG/DL (0.50-1.00); GLOMERULAR FILTRATION RATE 71 ML/MIN (>89); GLUCOSE,RANDOM 100 MG/DL (74-106); MAGNESIUM 2.1 MG/DL (1.5-2.5); SODIUM (NA) 143 MEQ/L (136-145)
[2017-11-15 10:52] LABS: ALT (GPT) 19 U/L (10-53); PHOSPHORUS 4.5 MG/DL (2.5-4.9)
[2017-11-15 10:54] LABS: ALKALINE PHOSPHATASE 75 U/L (45-117); TOTAL BILIRUBIN ADULT 0.3 MG/DL (0.2-1.0); TOTAL PROTEIN 7.1 GM/DL (6.4-8.2)
--- NOTE | 2017-11-15 14:53 | HHI.PR ---
Subjective Remarks Follow-up sepsis/pyelonephritis 11/13/17-patient seen and examined, complains of left flank pain. Afebrile 11-14 COMPLAINS OF ALOT OF LEFT FLANK PAIN STILL CONSULT UROLOGY 11-15 UROLOGY CONSULT IS PENDING STILL COMPLAINS OF LEFT GROIN AND FLANK PAIN COMPLAINS OF ITCHING FROM VAGINA AREA HAS LOOSE STOOL NOT DIARRHEA AM LABS PAIN CONTROL Objective Vitals Vital Signs Date Time Temp Pulse Resp B/P (MAP) Pulse Ox O2 Delivery O2 Flow Rate FiO2 11/15/17 12:00 98.4 80 20 132/78 (96) 95 11/15/17 08:00 Room Air 11/15/17 08:00 97.5 80 21 149/84 (105) 100 138/90 (106) 141/87 (105) 11/15/17 04:05 77 11/15/17 04:00 97.4 106 18 124/71 (88) 96 11/15/17 04:00 Room Air 11/15/17 00:09 85 11/15/17 00:00 97.7 88 16 125/70 (88) 95 11/15/17 00:00 Room Air 11/14/17 20:27 90 11/14/17 20:00 Room Air 11/14/17 20:00 98.0 89 20 147/85 (105) 98 11/14/17 16:00 97.7 94 20 120/73 (89) 95 I/O 11/14/17 11/14/17 11/14/17 11/15/17 11/15/17 11/15/17 07:00 15:00 23:00 07:00 15:00 23:00 Intake Total 1560 ml 1200 ml 1200 ml 600 ml Balance 1560 ml 1200 ml 1200 ml 600 ml Intake Oral 360 ml 600 ml IV Total 1200 ml 1200 ml 1200 ml # Voids 4 1 8 3 # Bowel Movements 5 1 Result Diagram: 11/15/17 1011 11/15/17 1011 Other Results Laboratory Tests Test 11/13/17 10:00 11/14/17 11:49 11/15/17 10:11 White Blood Count 3.9 TH/MM3 4.2 TH/MM3 3.9 TH/MM3 Red Blood Count 3.29 MIL/MM3 3.54 MIL/MM3 3.82 MIL/MM3 Hemoglobin 10.0 GM/DL 10.7 GM/DL 11.3 GM/DL Hematocrit 28.8 % 30.5 % 33.1 % Mean Corpuscular Volume 87.6 FL 86.3 FL 86.6 FL Mean Corpuscular Hemoglobin 30.3 PG 30.3 PG 29.6 PG Mean Corpuscular Hemoglobin Concent 34.5 % 35.1 % 34.2 % Red Cell Distribution Width 13.2 % 13.1 % 13.3 % Platelet Count 132 TH/MM3 171 TH/MM3 181 TH/MM3 Mean Platelet Volume 8.7 FL 8.8 FL 8.1 FL Blood Urea Nitrogen 7 MG/DL 7 MG/DL 10 MG/DL Creatinine 0.76 MG/DL 0.68 MG/DL 0.83 MG/DL Random Glucose 137 MG/DL 97 MG/DL 100 MG/DL Calcium Level 8.6 MG/DL 8.8 MG/DL 8.9 MG/DL Sodium Level 143 MEQ/L 145 MEQ/L 143 MEQ/L Potassium Level 3.3 MEQ/L 3.5 MEQ/L 3.3 MEQ/L Chloride Level 110 MEQ/L 111 MEQ/L 107 MEQ/L Carbon Dioxide Level 23.6 MEQ/L 27.3 MEQ/L 29.9 MEQ/L Anion Gap 9 MEQ/L 7 MEQ/L 6 MEQ/L Estimat Glomerular Filtration Rate 79 ML/MIN 90 ML/MIN 71 ML/MIN Neutrophils (%) (Auto) 40.1 % 42.6 % Lymphocytes (%) (Auto) 42.1 % 43.3 % Monocytes (%) (Auto) 7.2 % 6.1 % Eosinophils (%) (Auto) 9.4 % 7.0 % Basophils (%) (Auto) 1.2 % 1.0 % Neutrophils # (Auto) 1.7 TH/MM3 1.7 TH/MM3 Lymphocytes # (Auto) 1.8 TH/MM3 1.7 TH/MM3 Monocytes # (Auto) 0.3 TH/MM3 0.2 TH/MM3 Eosinophils # (Auto) 0.4 TH/MM3 0.3 TH/MM3 Basophils # (Auto) 0.0 TH/MM3 0.0 TH/MM3 CBC Comment DIFF FINAL DIFF FINAL Differential Comment Total Protein 7.1 GM/DL Albumin 3.5 GM/DL Phosphorus Level 4.5 MG/DL Magnesium Level 2.1 MG/DL Alkaline Phosphatase 75 U/L Aspartate Amino Transf (AST/SGOT) 13 U/L Alanine Aminotransferase (ALT/SGPT) 19 U/L Total Bilirubin 0.3 MG/DL Imaging Last Impressions Chest X-Ray 11/11/17 1840 Signed Impressions: Service Date/Time: Saturday, November 11, 2017 18:58 - CONCLUSION: Normal examination. Hitesh Middleton MD Head CT 11/11/17 0000 Signed Impressions: Service Date/Time: Saturday, November 11, 2017 20:17 - CONCLUSION: Normal examination. Hitesh Middleton MD Abdomen/Pelvis CT 11/11/17 0000 Signed Impressions: Service Date/Time: Saturday, November 11, 2017 20:20 - CONCLUSION: Left-sided double-J ureteral catheter in good position. 2-3 mm stone at the level of L4-5 disc space on the left. Numerous gallstones without evidence of acute cholecystitis. Hitesh Middleton MD Objective Remarks GENERAL: Awake alert oriented talkative and cooperative --appears somewhat uncomfortable SKIN: Warm and dry. HEAD: Atraumatic. Normocephalic. EYES: Pupils equal and round. No scleral icterus. No injection or drainage. Extraocular muscles intact ENT: No nasal bleeding or discharge. Mucous membranes pink and moist. Tongue is midline NECK: Trachea midline. No JVD. Supple CARDIOVASCULAR: Regular rate and rhythm. S1 and S2 no S3 or S4 no heave or thrill or rub or gallop RESPIRATORY: No accessory muscle use. Clear to auscultation. Breath sounds equal bilaterally. GASTROINTESTINAL: Abdomen soft, non-tender, nondistended. Hepatic and splenic margins not palpable. Left-sided CVA tenderness MUSCULOSKELETAL: Extremities without clubbing, cyanosis, or edema. No obvious deformities. NEUROLOGICAL: Awake and alert. No obvious cranial nerve deficits. Motor grossly within normal limits. Five out of 5 muscle strength in the arms and legs. Normal speech. PSYCHIATRIC: Appropriate mood and affect; insight and judgment normal. Medications and IVs Current Medications Ondansetron HCl (Zofran Inj) 4 mg ONCE ONCE IV PUSH Last administered on at 19:36; Start 11/11/17 at 19:15; Stop 11/11/17 at 19:16; Status DC Sodium Chloride 1,000 ml @ 999 mls/hr BOLUS ONCE IV Last administered on at 19:36; Start 11/11/17 at 19:15; Stop 11/11/17 at 20:15; Status DC Morphine Sulfate (Morphine Inj) 2 mg ONCE ONCE IV PUSH Last administered on 11/11/17at 19:36; Start 11/11/17 at 19:15; Stop 11/11/17 at 19:16; Status DC Iohexol (Omnipaque 350 Inj) 96 ml STK-MED ONCE IVCONTRAST Last administered on 11/11/17at 20:30; Start 11/11/17 at 20:30; Stop 11/11/17 at 20:39; Status DC Ceftriaxone Sodium 1000 mg/ Sodium Chloride 100 ml @ 200 mls/hr ONCE ONCE IV Last administered on 11/11/17at 21:20; Start 11/11/17 at 21:00; Stop 11/11/17 at 21: 29; Status DC Sodium Chloride (NS Flush) 2 ml UNSCH PRN IV FLUSH FLUSH AFTER USING IV ACCESS Last administered on 11/15/17at 02:40; Start 11/11/17 at 22:15 Sodium Chloride (NS Flush) 2 ml BID IV FLUSH Last administered on 11/15/17at 10: 05; Start 11/12/17 at 09:00 Naloxone HCl (Narcan Inj) 0.4 mg UNSCH PRN IV PUSH SEE LABEL COMMENTS; Start at 22:15 Potassium Bicarb/ Potassium Chloride (K-Lyte Cl Eff) 50 meq ONCE ONCE PO Last administered on 11/11/17at 23:33; Start 11/11/17 at 22:15; Stop 11/11/17 at 22: 18; Status DC Ciprofloxacin/ Dextrose 200 ml @ 200 mls/hr Q12H IV Last administered on at 10:15; Start 11/11/17 at 23:00 Acetaminophen (Tylenol) 650 mg Q4H PRN PO temp > 101; Start 11/11/17 at 23:15; Stop 11/13/17 at 08:59; Status DC Morphine Sulfate (Morphine Inj) 2 mg Q3H PRN IV PUSH breakthrough pain Last administered on 11/15/17at 10:16; Start 11/12/17 at 00:00 Acetaminophen/ Hydrocodone Bitart ([place] 5-325 Mg) 1 tab Q6H PRN PO pain > 5 Last administered on 11/15/17at 13:54; Start 11/12/17 at 01:00 Baclofen (Lioresal) 10 mg TID PO Last administered on 11/15/17at 13:54; Start at 09:00 Clonazepam (KlonoPIN) 0.5 mg BID PO Last administered on 11/15/17at 10:05; Start 11/12/17 at 09:00 Ropinirole HCl (Requip) 1 mg TID PO Last administered on 11/15/17at 13:54; Start 11/12/17 at 09:00 Trazodone HCl (Desyrel) 50 mg HS PO Last administered on 11/14/17at 21:47; Start 11/12/17 at 21:00 Quetiapine Fumarate (SEROquel) 200 mg BID PO Last administered on 11/15/17at 10: 05; Start 11/12/17 at 09:00 Sodium Chloride 1,000 ml @ 100 mls/hr Q10H IV Last administered on 11/15/17at 05:41; Start 11/12/17 at 09:15 Sodium Chloride 1,000 ml @ 999 mls/hr BOLUS ONCE IV Last administered on at 09:34; Start 11/12/17 at 09:15; Stop 11/12/17 at 10:15; Status DC Potassium Bicarb/ Potassium Chloride (K-Lyte Cl Eff) 50 meq ONCE ONCE PO Last administered on 11/12/17at 14:18; Start 11/12/17 at 13:45; Stop 11/12/17 at 13: 47; Status DC Acetaminophen (Tylenol) 650 mg Q4H PRN PO Temp > 100.4; Start 11/13/17 at 08:00 Ondansetron HCl (Zofran Inj) 4 mg Q6H PRN IV PUSH NAUSEA; Start 11/13/17 at 08: 00 Potassium Chloride (KCl) 60 meq ONCE ONCE PO Last administered on 11/13/17at 12 :18; Start 11/13/17 at 12:00; Stop 11/13/17 at 12:02; Status DC A/P Problem List: (1) Sepsis ICD Code: A41.9 - Sepsis, unspecified organism (2) Pyelonephritis ICD Code: N12 - Tubulo-interstitial nephritis, not specified as acute or chronic Status: Acute (3) Nausea ICD Code: R11.0 - Nausea (4) Vomiting ICD Code: R11.10 - Vomiting, unspecified (5) UTI (urinary tract infection) ICD Code: N39.0 - Urinary tract infection, site not specified Status: Acute (6) History of Clostridium difficile infection ICD Code: Z86.19 - Personal history of other infectious and parasitic diseases (7) Hypokalemia ICD Code: E87.6 - Hypokalemia Status: Acute (8) Dizziness ICD Code: R42 - Dizziness and giddiness Assessment and Plan 57-year-old female with Pyelonephritis -Currently on IV Cipro ----positive for Pseudomonas continue on the IV Cipro -Urology consultation when necessary secondary to patient history of ureteral stent - Hydrocodone 5/325 mg every 4 h PRN pain > 5 and IV morphine 2 mg IV q3h PRN breakthrough pain Left-sided CVA tenderness Hypokalemia -REPLACE and monitor Dizziness - head CT normal -Resolved -PT consult to treat and eval Nausea with vomiting-resolved History of C. Difficile colitis - check for c. difficile - Stool for culture and WBCs Hypotension -Resolved with IV fluid hydration HYPOKALEMIA WILL REPLACE VAGINAL CANDIDIASIS DIFLUCAN AND MONISTAT DVT prophylaxis - SCDs/TEDs CONSULT UROLOGY Discharge Planning Pending urology clearance Problem Qualifiers (1) UTI (urinary tract infection): Qualified Codes: N30.00 - Acute cystitis without hematuria Erick Ornelas DO Nov 15, 2017 14:53
[2017-11-15] MEDS ORDERED: POTASSIUM CHLORIDE 20 MEQ CONTROLLED RELEASE TAB PO ONE (15:00)
[2017-11-15] MEDS: FLUCONAZOLE 100 MG TAB PO SCH (17:17)
[2017-11-15] MEDS: traZODone HCL 50 MG TAB PO SCH (19:51)
[2017-11-15] MEDS: MICONAZOLE NITRATE 2% VAG CREAM 45 GM VAGINAL SCH (19:51)
[2017-11-16] VITALS (10 sets, daily range): BP systolic 106–140; BP diastolic 58–79; PULSE 78–95; RESP 2–21; TEMP 97.1–97.9; O2SAT 94–97
[2017-11-16] MEDS: SODIUM CHLOR 0.9% 1000 ML INJ 1,000 ML IV SCH ×3 (01:30→23:15)
[2017-11-16] MEDS: ACETAMINOPHEN/HYDROcodone 325 MG/5 MG TAB PO PRN ×4 (01:30→21:05)
[2017-11-16] MEDS: MORPHINE SULFATE 2 MG/ML INJ IV PUSH PRN ×4 (04:41→23:55)
[2017-11-16] MEDS: clonazePAM 0.5 MG TAB PO SCH ×2 (08:18→21:04)
[2017-11-16] MEDS: BACLOFEN 10 MG TAB PO SCH ×3 (08:18→18:09)
[2017-11-16] MEDS: QUEtiapine FUMARATE 200 MG TAB PO SCH ×2 (08:18→21:04)
[2017-11-16] MEDS: FLUCONAZOLE 100 MG TAB PO SCH (08:18)
[2017-11-16] MEDS: SODIUM CHLORIDE 0.9% FLUSH 10 ML FLUSH IV FLUSH SCH ×2 (08:19→21:05)
[2017-11-16 08:33] LABS: AUTOMATED NEUTROPHIL # 1.8 TH/MM3 (1.8-7.7); EOSINOPHIL # 0.2 TH/MM3 (0-0.4); EOSINOPHIL % 5.5 % (0.0-4.0); HEMATOCRIT 31.9 % (35.0-46.0); HEMOGLOBIN 10.7 GM/DL (11.6-15.3); LYMPH % 45.1 % (9.0-44.0); MEAN CELL VOLUME 86.4 FL (80.0-100.0); MEAN CORPUSCULAR HEMOGLOBIN 29.1 PG (27.0-34.0); MEAN CORPUSCULAR HGB CONC 33.7 % (32.0-36.0); MEAN PLATELET VOLUME 8.3 FL (7.0-11.0); MONO % 6.9 % (0.0-8.0); MONOCYTE # 0.3 TH/MM3 (0-0.9); NEUT % 41.5 % (16.0-70.0); PLATELET COUNT 183 TH/MM3 (150-450); RED BLOOD COUNT 3.69 MIL/MM3 (4.00-5.30); RED CELL DISTRIBUTION WIDTH 13.3 % (11.6-17.2); WHITE BLOOD COUNT 4.4 TH/MM3 (4.0-11.0)
[2017-11-16 08:49] LABS: ALBUMIN 3.3 GM/DL (3.4-5.0); AST (GOT) 12 U/L (15-37); BICARBONATE 23.6 MEQ/L (21.0-32.0); BLOOD UREA NITROGEN 12 MG/DL (7-18); CALCIUM 8.8 MG/DL (8.5-10.1); CHLORIDE 111 MEQ/L (98-107); CREATININE 0.74 MG/DL (0.50-1.00); GLOMERULAR FILTRATION RATE 81 ML/MIN (>89); GLUCOSE,RANDOM 95 MG/DL (74-106); MAGNESIUM 2.2 MG/DL (1.5-2.5); SODIUM (NA) 143 MEQ/L (136-145)
[2017-11-16 08:52] LABS: ALKALINE PHOSPHATASE 68 U/L (45-117); ALT (GPT) 18 U/L (10-53); TOTAL BILIRUBIN ADULT 0.3 MG/DL (0.2-1.0); TOTAL PROTEIN 6.6 GM/DL (6.4-8.2)
[2017-11-16] MEDS: CIPROFLOXACIN 400 MG PREMIX 200 ML IV SCH ×2 (10:17→23:15)
--- NOTE | 2017-11-16 12:18 | HHI.PR ---
Subjective Remarks Follow-up sepsis/pyelonephritis 11/13/17-patient seen and examined, complains of left flank pain. Afebrile 1- COMPLAINS OF ALOT OF LEFT FLANK PAIN STILL CONSULT UROLOGY 11-15 UROLOGY CONSULT IS PENDING STILL COMPLAINS OF LEFT GROIN AND FLANK PAIN COMPLAINS OF ITCHING FROM VAGINA AREA HAS LOOSE STOOL NOT DIARRHEA AM LABS PAIN CONTROL - CONTINUE CURRENT TREATMENT AWAIT UROLOGY CONSULT LESS VAGINAL ITCHING NO LOOSE STOOLS DW RN AND PATIENT STILL NEEDING IV PAIN MEDS Objective Vitals Vital Signs Date Time Temp Pulse Resp B/P (MAP) Pulse Ox O2 Delivery O2 Flow Rate FiO2 11/16/17 08:00 97.3 78 21 113/77 (89) 94 140/72 (94) 137/76 (96) 11/16/17 08:00 80 11/16/17 07:00 Room Air 11/16/17 04:00 97.4 87 20 119/75 (90) 96 11/16/17 04:00 Room Air 11/16/17 03:53 86 11/16/17 00:27 84 11/16/17 00:00 97.5 82 2 106/75 (85) 96 11/16/17 00:00 Room Air 11/15/17 20:06 88 11/15/17 20:00 97.6 89 20 130/75 (93) 96 11/15/17 20:00 Room Air 11/15/17 16:00 97.7 87 20 112/69 (83) 95 I/O 11/15/17 11/15/17 11/15/17 11/16/17 11/16/17 11/16/17 06:59 14:59 22:59 06:59 14:59 22:59 Intake Total 600 ml 480 ml 1870 ml Output Total 2100 ml Balance 600 ml -1620 ml 1870 ml Intake Oral 600 ml 480 ml 220 ml IV Total 1650 ml Output Urine Total 2100 ml # Voids 3 5 # Bowel Movements 1 1 Result Diagram: 11/16/17 0715 11/16/17 0715 Other Results Laboratory Tests Test 11/14/17 11:49 11/15/17 10:11 11/16/17 07:15 White Blood Count 4.2 TH/MM3 3.9 TH/MM3 4.4 TH/MM3 Red Blood Count 3.54 MIL/MM3 3.82 MIL/MM3 3.69 MIL/MM3 Hemoglobin 10.7 GM/DL 11.3 GM/DL 10.7 GM/DL Hematocrit 30.5 % 33.1 % 31.9 % Mean Corpuscular Volume 86.3 FL 86.6 FL 86.4 FL Mean Corpuscular Hemoglobin 30.3 PG 29.6 PG 29.1 PG Mean Corpuscular Hemoglobin Concent 35.1 % 34.2 % 33.7 % Red Cell Distribution Width 13.1 % 13.3 % 13.3 % Platelet Count 171 TH/MM3 181 TH/MM3 183 TH/MM3 Mean Platelet Volume 8.8 FL 8.1 FL 8.3 FL Neutrophils (%) (Auto) 40.1 % 42.6 % 41.5 % Lymphocytes (%) (Auto) 42.1 % 43.3 % 45.1 % Monocytes (%) (Auto) 7.2 % 6.1 % 6.9 % Eosinophils (%) (Auto) 9.4 % 7.0 % 5.5 % Basophils (%) (Auto) 1.2 % 1.0 % 1.0 % Neutrophils # (Auto) 1.7 TH/MM3 1.7 TH/MM3 1.8 TH/MM3 Lymphocytes # (Auto) 1.8 TH/MM3 1.7 TH/MM3 2.0 TH/MM3 Monocytes # (Auto) 0.3 TH/MM3 0.2 TH/MM3 0.3 TH/MM3 Eosinophils # (Auto) 0.4 TH/MM3 0.3 TH/MM3 0.2 TH/MM3 Basophils # (Auto) 0.0 TH/MM3 0.0 TH/MM3 0.0 TH/MM3 CBC Comment DIFF FINAL DIFF FINAL DIFF FINAL Differential Comment Blood Urea Nitrogen 7 MG/DL 10 MG/DL 12 MG/DL Creatinine 0.68 MG/DL 0.83 MG/DL 0.74 MG/DL Random Glucose 97 MG/DL 100 MG/DL 95 MG/DL Calcium Level 8.8 MG/DL 8.9 MG/DL 8.8 MG/DL Sodium Level 145 MEQ/L 143 MEQ/L 143 MEQ/L Potassium Level 3.5 MEQ/L 3.3 MEQ/L 4.0 MEQ/L Chloride Level 111 MEQ/L 107 MEQ/L 111 MEQ/L Carbon Dioxide Level 27.3 MEQ/L 29.9 MEQ/L 23.6 MEQ/L Anion Gap 7 MEQ/L 6 MEQ/L 8 MEQ/L Estimat Glomerular Filtration Rate 90 ML/MIN 71 ML/MIN 81 ML/MIN Total Protein 7.1 GM/DL 6.6 GM/DL Albumin 3.5 GM/DL 3.3 GM/DL Phosphorus Level 4.5 MG/DL 4.0 MG/DL Magnesium Level 2.1 MG/DL 2.2 MG/DL Alkaline Phosphatase 75 U/L 68 U/L Aspartate Amino Transf (AST/SGOT) 13 U/L 12 U/L Alanine Aminotransferase (ALT/SGPT) 19 U/L 18 U/L Total Bilirubin 0.3 MG/DL 0.3 MG/DL Imaging Last Impressions Chest X-Ray 11/11/17 1840 Signed Impressions: Service Date/Time: Saturday, November 11, 2017 18:58 - CONCLUSION: Normal examination. Hitesh Middleton MD Head CT 11/11/17 0000 Signed Impressions: Service Date/Time: Saturday, November 11, 2017 20:17 - CONCLUSION: Normal examination. Hitesh Middleton MD Abdomen/Pelvis CT 11/11/17 0000 Signed Impressions: Service Date/Time: Saturday, November 11, 2017 20:20 - CONCLUSION: Left-sided double-J ureteral catheter in good position. 2-3 mm stone at the level of L4-5 disc space on the left. Numerous gallstones without evidence of acute cholecystitis. Hitesh Middleton MD Objective Remarks GENERAL: Awake alert oriented talkative and cooperative --appears somewhat uncomfortable SKIN: Warm and dry. HEAD: Atraumatic. Normocephalic. EYES: Pupils equal and round. No scleral icterus. No injection or drainage. Extraocular muscles intact ENT: No nasal bleeding or discharge. Mucous membranes pink and moist. Tongue is midline NECK: Trachea midline. No JVD. Supple CARDIOVASCULAR: Regular rate and rhythm. S1 and S2 no S3 or S4 no heave or thrill or rub or gallop RESPIRATORY: No accessory muscle use. Clear to auscultation. Breath sounds equal bilaterally. GASTROINTESTINAL: Abdomen soft, non-tender, nondistended. Hepatic and splenic margins not palpable. Left-sided CVA tenderness MUSCULOSKELETAL: Extremities without clubbing, cyanosis, or edema. No obvious deformities. NEUROLOGICAL: Awake and alert. No obvious cranial nerve deficits. Motor grossly within normal limits. Five out of 5 muscle strength in the arms and legs. Normal speech. PSYCHIATRIC: Appropriate mood and affect; insight and judgment normal. Medications and IVs Current Medications Ondansetron HCl (Zofran Inj) 4 mg ONCE ONCE IV PUSH Last administered on 19:36; Start 11/11/17 at 19:15; Stop 11/11/17 at 19:16; Status DC Sodium Chloride 1,000 ml @ 999 mls/hr BOLUS ONCE IV Last administered on 19:36; Start 11/11/17 at 19:15; Stop 11/11/17 at 20:15; Status DC Morphine Sulfate (Morphine Inj) 2 mg ONCE ONCE IV PUSH Last administered on 19:36; Start 11/11/17 at 19:15; Stop 11/11/17 at 19:16; Status DC Iohexol (Omnipaque 350 Inj) 96 ml STK-MED ONCE IVCONTRAST Last administered on 11/11/17at 20:30; Start 11/11/17 at 20:30; Stop 11/11/17 at 20:39; Status DC Ceftriaxone Sodium 1000 mg/ Sodium Chloride 100 ml @ 200 mls/hr ONCE ONCE IV Last administered on 11/11/17at 21:20; Start 11/11/17 at 21:00; Stop 11/11/17 at 21: 29; Status DC Sodium Chloride (NS Flush) 2 ml UNSCH PRN IV FLUSH FLUSH AFTER USING IV ACCESS Last administered on 11/15/17at 02:40; Start 11/11/17 at 22:15 Sodium Chloride (NS Flush) 2 ml BID IV FLUSH Last administered on 11/15/17at 10: 05; Start 11/12/17 at 09:00 Naloxone HCl (Narcan Inj) 0.4 mg UNSCH PRN IV PUSH SEE LABEL COMMENTS; Start at 22:15 Potassium Bicarb/ Potassium Chloride (K-Lyte Cl Eff) 50 meq ONCE ONCE PO Last administered on 11/11/17at 23:33; Start 11/11/17 at 22:15; Stop 11/11/17 at 22: 18; Status DC Ciprofloxacin/ Dextrose 200 ml @ 200 mls/hr Q12H IV Last administered on at 10:17; Start 11/11/17 at 23:00 Acetaminophen (Tylenol) 650 mg Q4H PRN PO temp > 101; Start 11/11/17 at 23:15; Stop 11/13/17 at 08:59; Status DC Morphine Sulfate (Morphine Inj) 2 mg Q3H PRN IV PUSH breakthrough pain Last administered on 11/16/17at 12:02; Start 11/12/17 at 00:00 Acetaminophen/ Hydrocodone Bitart ([place] 5-325 Mg) 1 tab Q6H PRN PO pain > 5 Last administered on 11/16/17at 07:34; Start 11/12/17 at 01:00 Baclofen (Lioresal) 10 mg TID PO Last administered on 11/16/17at 12:02; Start at 09:00 Clonazepam (KlonoPIN) 0.5 mg BID PO Last administered on 11/16/17at 08:18; Start 11/12/17 at 09:00 Ropinirole HCl (Requip) 1 mg TID PO Last administered on 11/16/17at 12:02; Start 11/12/17 at 09:00 Trazodone HCl (Desyrel) 50 mg HS PO Last administered on 11/15/17at 19:51; Start 11/12/17 at 21:00 Quetiapine Fumarate (SEROquel) 200 mg BID PO Last administered on 11/16/17at 08: 18; Start 11/12/17 at 09:00 Sodium Chloride 1,000 ml @ 100 mls/hr Q10H IV Last administered on 11/16/17at 01:30; Start 11/12/17 at 09:15 Sodium Chloride 1,000 ml @ 999 mls/hr BOLUS ONCE IV Last administered on at 09:34; Start 11/12/17 at 09:15; Stop 11/12/17 at 10:15; Status DC Potassium Bicarb/ Potassium Chloride (K-Lyte Cl Eff) 50 meq ONCE ONCE PO Last administered on 11/12/17at 14:18; Start 11/12/17 at 13:45; Stop 11/12/17 at 13: 47; Status DC Acetaminophen (Tylenol) 650 mg Q4H PRN PO Temp > 100.4; Start 11/13/17 at 08:00 Ondansetron HCl (Zofran Inj) 4 mg Q6H PRN IV PUSH NAUSEA; Start 11/13/17 at 08: 00 Potassium Chloride (KCl) 60 meq ONCE ONCE PO Last administered on 11/13/17at 12 :18; Start 11/13/17 at 12:00; Stop 11/13/17 at 12:02; Status DC Potassium Chloride (KCl) 60 meq ONCE ONCE PO Last administered on 11/15/17at 16 :14; Start 11/15/17 at 15:00; Stop 11/15/17 at 15:13; Status DC Fluconazole (Diflucan) 100 mg DAILY PO Last administered on 11/16/17at 08:18; Start 11/15/17 at 15:00 Miconazole Nitrate (Monistat 7 Vag Cream) 1 appl HS VAGINAL Last administered on 11/15/17at 19:51; Start 11/15/17 at 21:00; Stop 11/22/17 at 20:59 A/P Problem List: (1) Sepsis ICD Code: A41.9 - Sepsis, unspecified organism (2) Pyelonephritis ICD Code: N12 - Tubulo-interstitial nephritis, not specified as acute or chronic Status: Acute (3) Nausea ICD Code: R11.0 - Nausea (4) Vomiting ICD Code: R11.10 - Vomiting, unspecified (5) UTI (urinary tract infection) ICD Code: N39.0 - Urinary tract infection, site not specified Status: Acute (6) History of Clostridium difficile infection ICD Code: Z86.19 - Personal history of other infectious and parasitic diseases (7) Hypokalemia ICD Code: E87.6 - Hypokalemia Status: Acute (8) Dizziness ICD Code: R42 - Dizziness and giddiness Assessment and Plan 57-year-old female with Pyelonephritis -Currently on IV Cipro ----positive for Pseudomonas continue on the IV Cipro -Urology consultation secondary to patient history of ureteral stent - Hydrocodone 5/325 mg every 4 h PRN pain > 5 and IV morphine 2 mg IV q3h PRN breakthrough pain Left-sided CVA tenderness Hypokalemia -REPLACE and monitor Dizziness - head CT normal -Resolved -PT consult to treat and eval Nausea with vomiting-resolved History of C. Difficile colitis - check for c. difficile - Stool for culture and WBCs Hypotension -Resolved with IV fluid hydration HYPOKALEMIA WILL REPLACE VAGINAL CANDIDIASIS DIFLUCAN AND MONISTAT DVT prophylaxis - SCDs/TEDs CONSULT UROLOGY- NEED UROLOGY OPINIONS Discharge Planning Pending urology clearance Problem Qualifiers (1) UTI (urinary tract infection): Qualified Codes: N30.00 - Acute cystitis without hematuria Erick Ornelas DO Nov 16, 2017 12:18
[2017-11-16] MEDS: traZODone HCL 50 MG TAB PO SCH (21:04)
[2017-11-16] MEDS: MICONAZOLE NITRATE 2% VAG CREAM 45 GM VAGINAL SCH (21:05)
[2017-11-17] VITALS (8 sets, daily range): BP systolic 96–121; BP diastolic 54–87; PULSE 73–91; RESP 16–20; TEMP 96.3–98.4; O2SAT 95–98
[2017-11-17] MEDS: ACETAMINOPHEN/HYDROcodone 325 MG/5 MG TAB PO PRN ×4 (03:07→23:19)
[2017-11-17] MEDS: MORPHINE SULFATE 2 MG/ML INJ IV PUSH PRN ×3 (06:11→20:27)
[2017-11-17] MEDS: SODIUM CHLORIDE 0.9% FLUSH 10 ML FLUSH IV FLUSH SCH ×2 (09:00→20:27)
[2017-11-17] MEDS: BACLOFEN 10 MG TAB PO SCH ×3 (09:14→17:07)
[2017-11-17] MEDS: QUEtiapine FUMARATE 200 MG TAB PO SCH ×2 (09:14→20:27)
[2017-11-17] MEDS: clonazePAM 0.5 MG TAB PO SCH ×2 (09:14→20:27)
[2017-11-17] MEDS: FLUCONAZOLE 100 MG TAB PO SCH (09:14)
[2017-11-17] MEDS: SODIUM CHLOR 0.9% 1000 ML INJ 1,000 ML IV SCH ×2 (10:34→20:30)
[2017-11-17] MEDS: CIPROFLOXACIN 400 MG PREMIX 200 ML IV SCH ×2 (10:34→23:19)
--- NOTE | 2017-11-17 11:32 | HHI.PR ---
Subjective Remarks Follow-up sepsis/pyelonephritis 11/13/17-patient seen and examined, complains of left flank pain. Afebrile 11-14 COMPLAINS OF ALOT OF LEFT FLANK PAIN STILL CONSULT UROLOGY 11-15 UROLOGY CONSULT IS PENDING STILL COMPLAINS OF LEFT GROIN AND FLANK PAIN COMPLAINS OF ITCHING FROM VAGINA AREA HAS LOOSE STOOL NOT DIARRHEA AM LABS PAIN CONTROL - CONTINUE CURRENT TREATMENT AWAIT UROLOGY CONSULT LESS VAGINAL ITCHING NO LOOSE STOOLS DW RN AND PATIENT STILL NEEDING IV PAIN MEDS 14 await urological consultation Less vaginal itching No loose stools Still taking IV pain meds Has some left groin and flank pain still Discussed with RN and patient Objective Vitals Vital Signs Date Time Temp Pulse Resp B/P (MAP) Pulse Ox O2 Delivery O2 Flow Rate FiO2 11/17/17 08:00 97.3 84 20 121/70 (87) 96 128/77 (94) 119/87 (98) 11/17/17 07:00 Room Air 11/17/17 04:00 Room Air 11/17/17 04:00 98.0 77 16 101/59 (73) 98 11/17/17 03:46 80 11/17/17 00:00 98.4 84 16 116/65 (82) 95 11/16/17 23:45 85 11/16/17 20:00 97.1 95 16 108/58 (75) 97 11/16/17 20:00 Room Air 11/16/17 19:58 95 11/16/17 16:00 93 11/16/17 16:00 97.9 80 20 118/72 (87) 95 124/78 (93) 124/79 (94) 11/16/17 12:00 97.3 94 20 119/75 (90) 97 11/16/17 12:00 86 I/O 11/16/17 11/16/17 11/16/17 11/17/17 11/17/17 11/17/17 07:00 15:00 23:00 07:00 15:00 23:00 Intake Total 1870 ml 2510 ml 560 ml Output Total 1400 ml 900 ml Balance 1870 ml 1110 ml -340 ml Intake Oral 220 ml 480 ml IV Total 1650 ml 2030 ml 560 ml Output Urine Total 1400 ml 900 ml # Voids 5 # Bowel Movements 0 Result Diagram: 11/16/17 0715 11/16/17 0715 Other Results Laboratory Tests Test 11/14/17 11:49 11/15/17 10:11 11/16/17 07:15 White Blood Count 4.2 TH/MM3 3.9 TH/MM3 4.4 TH/MM3 Red Blood Count 3.54 MIL/MM3 3.82 MIL/MM3 3.69 MIL/MM3 Hemoglobin 10.7 GM/DL 11.3 GM/DL 10.7 GM/DL Hematocrit 30.5 % 33.1 % 31.9 % Mean Corpuscular Volume 86.3 FL 86.6 FL 86.4 FL Mean Corpuscular Hemoglobin 30.3 PG 29.6 PG 29.1 PG Mean Corpuscular Hemoglobin Concent 35.1 % 34.2 % 33.7 % Red Cell Distribution Width 13.1 % 13.3 % 13.3 % Platelet Count 171 TH/MM3 181 TH/MM3 183 TH/MM3 Mean Platelet Volume 8.8 FL 8.1 FL 8.3 FL Neutrophils (%) (Auto) 40.1 % 42.6 % 41.5 % Lymphocytes (%) (Auto) 42.1 % 43.3 % 45.1 % Monocytes (%) (Auto) 7.2 % 6.1 % 6.9 % Eosinophils (%) (Auto) 9.4 % 7.0 % 5.5 % Basophils (%) (Auto) 1.2 % 1.0 % 1.0 % Neutrophils # (Auto) 1.7 TH/MM3 1.7 TH/MM3 1.8 TH/MM3 Lymphocytes # (Auto) 1.8 TH/MM3 1.7 TH/MM3 2.0 TH/MM3 Monocytes # (Auto) 0.3 TH/MM3 0.2 TH/MM3 0.3 TH/MM3 Eosinophils # (Auto) 0.4 TH/MM3 0.3 TH/MM3 0.2 TH/MM3 Basophils # (Auto) 0.0 TH/MM3 0.0 TH/MM3 0.0 TH/MM3 CBC Comment DIFF FINAL DIFF FINAL DIFF FINAL Differential Comment Blood Urea Nitrogen 7 MG/DL 10 MG/DL 12 MG/DL Creatinine 0.68 MG/DL 0.83 MG/DL 0.74 MG/DL Random Glucose 97 MG/DL 100 MG/DL 95 MG/DL Calcium Level 8.8 MG/DL 8.9 MG/DL 8.8 MG/DL Sodium Level 145 MEQ/L 143 MEQ/L 143 MEQ/L Potassium Level 3.5 MEQ/L 3.3 MEQ/L 4.0 MEQ/L Chloride Level 111 MEQ/L 107 MEQ/L 111 MEQ/L Carbon Dioxide Level 27.3 MEQ/L 29.9 MEQ/L 23.6 MEQ/L Anion Gap 7 MEQ/L 6 MEQ/L 8 MEQ/L Estimat Glomerular Filtration Rate 90 ML/MIN 71 ML/MIN 81 ML/MIN Total Protein 7.1 GM/DL 6.6 GM/DL Albumin 3.5 GM/DL 3.3 GM/DL Phosphorus Level 4.5 MG/DL 4.0 MG/DL Magnesium Level 2.1 MG/DL 2.2 MG/DL Alkaline Phosphatase 75 U/L 68 U/L Aspartate Amino Transf (AST/SGOT) 13 U/L 12 U/L Alanine Aminotransferase (ALT/SGPT) 19 U/L 18 U/L Total Bilirubin 0.3 MG/DL 0.3 MG/DL Imaging Last Impressions Chest X-Ray 11/11/17 1840 Signed Impressions: Service Date/Time: Saturday, November 11, 2017 18:58 - CONCLUSION: Normal examination. Hitesh Middleton MD Head CT 11/11/17 0000 Signed Impressions: Service Date/Time: Saturday, November 11, 2017 20:17 - CONCLUSION: Normal examination. Hitesh Middleton MD Abdomen/Pelvis CT 11/11/17 0000 Signed Impressions: Service Date/Time: Saturday, November 11, 2017 20:20 - CONCLUSION: Left-sided double-J ureteral catheter in good position. 2-3 mm stone at the level of L4-5 disc space on the left. Numerous gallstones without evidence of acute cholecystitis. Hitesh Middleton MD Objective Remarks GENERAL: Awake alert oriented talkative and cooperative --appears somewhat uncomfortable SKIN: Warm and dry. HEAD: Atraumatic. Normocephalic. EYES: Pupils equal and round. No scleral icterus. No injection or drainage. Extraocular muscles intact ENT: No nasal bleeding or discharge. Mucous membranes pink and moist. Tongue is midline NECK: Trachea midline. No JVD. Supple CARDIOVASCULAR: Regular rate and rhythm. S1 and S2 no S3 or S4 no heave or thrill or rub or gallop RESPIRATORY: No accessory muscle use. Clear to auscultation. Breath sounds equal bilaterally. GASTROINTESTINAL: Abdomen soft, non-tender, nondistended. Hepatic and splenic margins not palpable. Left-sided CVA tenderness MUSCULOSKELETAL: Extremities without clubbing, cyanosis, or edema. No obvious deformities. NEUROLOGICAL: Awake and alert. No obvious cranial nerve deficits. Motor grossly within normal limits. Five out of 5 muscle strength in the arms and legs. Normal speech. PSYCHIATRIC: Appropriate mood and affect; insight and judgment normal. Medications and IVs Current Medications Ondansetron HCl (Zofran Inj) 4 mg ONCE ONCE IV PUSH Last administered on 19:36; Start 11/11/17 at 19:15; Stop 11/11/17 at 19:16; Status DC Sodium Chloride 1,000 ml @ 999 mls/hr BOLUS ONCE IV Last administered on 19:36; Start 11/11/17 at 19:15; Stop 11/11/17 at 20:15; Status DC Morphine Sulfate (Morphine Inj) 2 mg ONCE ONCE IV PUSH Last administered on 19:36; Start 11/11/17 at 19:15; Stop 11/11/17 at 19:16; Status DC Iohexol (Omnipaque 350 Inj) 96 ml STK-MED ONCE IVCONTRAST Last administered on 11/11/17 20:30; Start 11/11/17 at 20:30; Stop 11/11/17 at 20:39; Status DC Ceftriaxone Sodium 1000 mg/ Sodium Chloride 100 ml @ 200 mls/hr ONCE ONCE IV Last administered on 11/11/17at 21:20; Start 11/11/17 at 21:00; Stop 11/11/17 at 21: 29; Status DC Sodium Chloride (NS Flush) 2 ml UNSCH PRN IV FLUSH FLUSH AFTER USING IV ACCESS Last administered on 11/15/17at 02:40; Start 11/11/17 at 22:15 Sodium Chloride (NS Flush) 2 ml BID IV FLUSH Last administered on 11/16/17at 21: 05; Start 11/12/17 at 09:00 Naloxone HCl (Narcan Inj) 0.4 mg UNSCH PRN IV PUSH SEE LABEL COMMENTS; Start at 22:15 Potassium Bicarb/ Potassium Chloride (K-Lyte Cl Eff) 50 meq ONCE ONCE PO Last administered on 11/11/17at 23:33; Start 11/11/17 at 22:15; Stop 11/11/17 at 22: 18; Status DC Ciprofloxacin/ Dextrose 200 ml @ 200 mls/hr Q12H IV Last administered on at 10:34; Start 11/11/17 at 23:00 Acetaminophen (Tylenol) 650 mg Q4H PRN PO temp > 101; Start 11/11/17 at 23:15; Stop 11/13/17 at 08:59; Status DC Morphine Sulfate (Morphine Inj) 2 mg Q3H PRN IV PUSH breakthrough pain Last administered on 11/17/17at 06:11; Start 11/12/17 at 00:00 Acetaminophen/ Hydrocodone Bitart ([place] 5-325 Mg) 1 tab Q6H PRN PO pain > 5 Last administered on 11/17/17at 09:14; Start 11/12/17 at 01:00 Baclofen (Lioresal) 10 mg TID PO Last administered on 11/17/17at 09:14; Start at 09:00 Clonazepam (KlonoPIN) 0.5 mg BID PO Last administered on 11/17/17 09:14; Start 11/12/17 at 09:00 Ropinirole HCl (Requip) 1 mg TID PO Last administered on 11/17/17at 09:13; Start 11/12/17 at 09:00 Trazodone HCl (Desyrel) 50 mg HS PO Last administered on 11/16/17at 21:04; Start 11/12/17 at 21:00 Quetiapine Fumarate (SEROquel) 200 mg BID PO Last administered on 11/17/17 09: 14; Start 11/12/17 at 09:00 Sodium Chloride 1,000 ml @ 100 mls/hr Q10H IV Last administered on 11/17/17at 10:34; Start 11/12/17 at 09:15 Sodium Chloride 1,000 ml @ 999 mls/hr BOLUS ONCE IV Last administered on at 09:34; Start 11/12/17 at 09:15; Stop 11/12/17 at 10:15; Status DC Potassium Bicarb/ Potassium Chloride (K-Lyte Cl Eff) 50 meq ONCE ONCE PO Last administered on 11/12/17at 14:18; Start 11/12/17 at 13:45; Stop 11/12/17 at 13: 47; Status DC Acetaminophen (Tylenol) 650 mg Q4H PRN PO Temp > 100.4; Start 11/13/17 at 08:00 Ondansetron HCl (Zofran Inj) 4 mg Q6H PRN IV PUSH NAUSEA; Start 11/13/17 at 08: 00 Potassium Chloride (KCl) 60 meq ONCE ONCE PO Last administered on 11/13/17at 12 :18; Start 11/13/17 at 12:00; Stop 11/13/17 at 12:02; Status DC Potassium Chloride (KCl) 60 meq ONCE ONCE PO Last administered on 11/15/17at 16 :14; Start 11/15/17 at 15:00; Stop 11/15/17 at 15:13; Status DC Fluconazole (Diflucan) 100 mg DAILY PO Last administered on 11/17/17at 09:14; Start 11/15/17 at 15:00 Miconazole Nitrate (Monistat 7 Vag Cream) 1 appl HS VAGINAL Last administered on 11/16/17at 21:05; Start 11/15/17 at 21:00; Stop 11/22/17 at 20:59 A/P Problem List: (1) Sepsis ICD Code: A41.9 - Sepsis, unspecified organism (2) Pyelonephritis ICD Code: N12 - Tubulo-interstitial nephritis, not specified as acute or chronic Status: Acute (3) Nausea ICD Code: R11.0 - Nausea (4) Vomiting ICD Code: R11.10 - Vomiting, unspecified (5) UTI (urinary tract infection) ICD Code: N39.0 - Urinary tract infection, site not specified Status: Acute (6) History of Clostridium difficile infection ICD Code: Z86.19 - Personal history of other infectious and parasitic diseases (7) Hypokalemia ICD Code: E87.6 - Hypokalemia Status: Acute (8) Dizziness ICD Code: R42 - Dizziness and giddiness Assessment and Plan 57-year-old female with Pyelonephritis -Currently on IV Cipro ----positive for Pseudomonas continue on the IV Cipro -Urology consultation secondary to patient history of ureteral stent - Hydrocodone 5/325 mg every 4 h PRN pain > 5 and IV morphine 2 mg IV q3h PRN breakthrough pain Left-sided CVA tenderness Consult urology Hypokalemia -REPLACE and monitor Dizziness - head CT normal -Resolved -PT consult to treat and eval Nausea with vomiting-resolved History of C. Difficile colitis - check for c. difficile - Stool for culture and WBCs Hypotension -Resolved with IV fluid hydration HYPOKALEMIA WILL REPLACE VAGINAL CANDIDIASIS DIFLUCAN AND MONISTAT DVT prophylaxis - SCDs/TEDs CONSULT UROLOGY- NEED UROLOGY OPINIONS Discharge Planning Pending urology clearance Problem Qualifiers (1) UTI (urinary tract infection): Qualified Codes: N30.00 - Acute cystitis without hematuria Erick Ornelas DO Nov 17, 2017 11:32
[2017-11-17] MEDS ORDERED: TAMSULOSIN HCL 0.4 MG CAP PO ONE (11:45)
[2017-11-17] MEDS: TAMSULOSIN HCL 0.4 MG CAP PO SCH (12:28)
--- NOTE | 2017-11-17 17:26 | PD.CONS ---
HPI Service Urology Consult Requested By Reason for Consult Nephrolithiasis Primary Care Physician Behzad Mcbride DO Diagnosis: (1) Sepsis ICD Code: A41.9 - Sepsis, unspecified organism (2) Pyelonephritis ICD Code: N12 - Tubulo-interstitial nephritis, not specified as acute or chronic (3) Nausea ICD Code: R11.0 - Nausea (4) Vomiting ICD Code: R11.10 - Vomiting, unspecified (5) UTI (urinary tract infection) ICD Code: N39.0 - Urinary tract infection, site not specified (6) History of Clostridium difficile infection ICD Code: Z86.19 - Personal history of other infectious and parasitic diseases (7) Hypokalemia ICD Code: E87.6 - Hypokalemia (8) Dizziness ICD Code: R42 - Dizziness and giddiness History of Present Illness 57yo female seen in consultation for nephrolithiasis. Patient had a left distal ureteral stone for which she underwent left ureteral stent placement by Dr. Lopez in September. She currently reports left flank pain that has been persistent and intolerable. She reports she has followed Dr. Lopez in clinic with plans to have the stone/stent removed, however she developed a UTI for which she is currently being treated for. No fevers. CT scan does show a 2-3mm stone noted in the distal left ureter. Review of Systems ROS Limitations: Clinical Condition Constitutional: DENIES: Fever Endocrine: DENIES: Polyuria Eyes: DENIES: Blurred vision Ears, nose, mouth, throat: DENIES: Hearing loss Respiratory: DENIES: Apneas Cardiovascular: DENIES: Chest pain Gastrointestinal: COMPLAINS OF: Abdominal pain Genitourinary: COMPLAINS OF: Urinary frequency, Urgency, Hematuria Musculoskeletal: DENIES: Muscle aches Integumentary: DENIES: Rash Neurologic: DENIES: Headache Psychiatric: DENIES: Anxiety Except as stated in HPI: all other systems reviewed are Neg Past Family Social History Past Medical History C. Difficile Colitis 09/2017 Septic Shock 09/2017 - treated at [facility] Nephrolithiasis with obstructive uropathy s/p left double J ureteral stent placement - treated by Dr. Lopez at [facility] Anxiety/depression IBS GERD Restless leg syndrome Denies any history of DVT, PE, CVA, or seizures Past Surgical History Right knee arthroscopy BTL Hysterectomy Appendectomy Breast reduction Reported Medications Reported Meds & Active Scripts Active Reported Tramadol (Tramadol HCl) 50 Mg Tab 50 Mg PO BID PRN Quetiapine ER (Quetiapine Fumarate) 400 Mg Tab 400 Mg PO DAILY Baclofen 10 Mg Tab 10 Mg PO TID Ropinirole 1 Mg Tab 1 Mg PO TID Clonazepam 0.5 Mg Tab 0.5 Mg PO BID Trazodone (Trazodone HCl) 50 Mg Tab 50 Mg PO HS Allergies: Coded Allergies: No Known Allergies (Verified Allergy, Unknown, 11/11/17) Active Ordered Medications Current Medications Medications (Trade) Dose Ordered Sig/Jami Route Start Time Stop Time Status Last Admin (NS Flush) 2 ml UNSCH PRN IV FLUSH 11/11/17 22:15 11/15/17 02:40 (NS Flush) 2 ml BID IV FLUSH 11/12/17 09:00 11/16/17 21:05 (Narcan Inj) 0.4 mg UNSCH PRN IV PUSH 11/11/17 22:15 Ciprofloxacin/ Dextrose 200 ml @ 200 mls/hr Q12H IV 11/11/17 23:00 11/17/17 10:34 (Morphine Inj) 2 mg Q3H PRN IV PUSH 11/12/17 00:00 11/17/17 12:58 (Tingley 5-325 Mg) 1 tab Q6H PRN PO 11/12/17 01:00 11/17/17 17:07 (Lioresal) 10 mg TID PO 11/12/17 09:00 11/17/17 17:07 (KlonoPIN) 0.5 mg BID PO 11/12/17 09:00 11/17/17 09:14 (Requip) 1 mg TID PO 11/12/17 09:00 11/17/17 17:07 (Desyrel) 50 mg HS PO 11/12/17 21:00 11/16/17 21:04 (SEROquel) 200 mg BID PO 11/12/17 09:00 11/17/17 09:14 Sodium Chloride 1,000 ml @ 100 mls/hr Q10H IV 11/12/17 09:15 11/17/17 10:34 (Tylenol) 650 mg Q4H PRN PO 11/13/17 08:00 (Zofran Inj) 4 mg Q6H PRN IV PUSH 11/13/17 08:00 (Diflucan) 100 mg DAILY PO 11/15/17 15:00 11/17/17 09:14 (Monistat 7 Vag Cream) 1 appl HS VAGINAL 11/15/17 21:00 11/22/17 20:59 11/16/17 21:05 (Flomax) 0.4 mg DAILY PO 11/17/17 11:45 11/17/17 12:28 Family History 2 brothers with alcoholism Brother with crack addiction Father with colon cancer Social History Tobacco: Denies - states she quit smoking 6 years ago Alcohol: Denies Illicit Drugs: Denies Physical Exam Vital Signs Date Time Temp Pulse Resp B/P (MAP) Pulse Ox O2 Delivery O2 Flow Rate FiO2 11/17/17 12:00 80 11/17/17 12:00 96.3 91 20 96/63 (74) 96 11/17/17 08:00 97.3 84 20 121/70 (87) 96 128/77 (94) 119/87 (98) 11/17/17 08:00 73 11/17/17 07:00 Room Air 11/17/17 04:00 Room Air 11/17/17 04:00 98.0 77 16 101/59 (73) 98 11/17/17 03:46 80 11/17/17 00:00 98.4 84 16 116/65 (82) 95 11/16/17 23:45 85 11/16/17 20:00 97.1 95 16 108/58 (75) 97 11/16/17 20:00 Room Air 11/16/17 19:58 95 Physical Exam GENERAL: This is a well-nourished, well-developed patient, in no apparent distress. SKIN: No rashes, ecchymoses or lesions. Cool and dry. HEAD: Atraumatic. Normocephalic. No temporal or scalp tenderness. EYES: Extraocular motions intact. No scleral icterus. No injection or drainage. ENT: Nose without bleeding, purulent drainage. Airway patent. NECK: Trachea midline. CARDIOVASCULAR: Normal pulse RESPIRATORY: Nonlabored GASTROINTESTINAL: Abdomen soft, non-tender, nondistended. MUSCULOSKELETAL: Extremities without clubbing, cyanosis, or edema. NEUROLOGICAL: Awake and alert. Motor and sensory grossly within normal limits. Normal speech. Lab results reviewed: Yes Date/Time Source Procedure Growth Status 11/11/17 19:10 Blood Peripheral Aerobic Blood Culture - Final NO GROWTH IN 5 DAYS Complete 11/11/17 19:10 Blood Peripheral Anaerobic Blood Culture - Final NO GROWTH IN 5 DAYS Complete 11/11/17 19:34 Nasal Aspirate Influenza Types A,B Antigen (AYAN) - Final NEGATIVE FOR FLU A AND B ANTIGEN.... Complete 11/11/17 18:35 Urine Clean Catch Urine Culture - Final Pseudomonas Aeruginosa Complete Result Diagram: 11/16/17 0715 11/16/17 0715 Personally reviewed images: Yes Imaging Last Impressions Chest X-Ray 11/11/17 1840 Signed Impressions: Service Date/Time: Saturday, November 11, 2017 18:58 - CONCLUSION: Normal examination. Hitesh Middleton MD Head CT 11/11/17 0000 Signed Impressions: Service Date/Time: Saturday, November 11, 2017 20:17 - CONCLUSION: Normal examination. Hitesh Middleton MD Abdomen/Pelvis CT 11/11/17 0000 Signed Impressions: Service Date/Time: Saturday, November 11, 2017 20:20 - CONCLUSION: Left-sided double-J ureteral catheter in good position. 2-3 mm stone at the level of L4-5 disc space on the left. Numerous gallstones without evidence of acute cholecystitis. Hitesh Middleton MD Assessment and Plan Problem List: (1) Nephrolithiasis ICD Code: N20.0 - Calculus of kidney Status: Acute (2) UTI (urinary tract infection) ICD Code: N39.0 - Urinary tract infection, site not specified Status: Acute Assessment and Plan -Continue treatment for UTI -Pain likely secondary to infection and stent -Stent is in good position. Stone noted adjacent to the left stent at the distal ureter -Patient will need stent removal and possible ureteroscopy to treat the stone. However this is to be completed after resolution of infection. This was discussed with the patient who understands. -Patient is clear for discharge from a Urology standpoint with Urology clinic follow-up to schedule further treatment for her stone and stent -Please call with questions Problem Qualifiers (1) UTI (urinary tract infection): Qualified Codes: N30.00 - Acute cystitis without hematuria Tj Daley MD Nov 17, 2017 17:26
[2017-11-17] MEDS: traZODone HCL 50 MG TAB PO SCH (20:27)
[2017-11-17] MEDS: MICONAZOLE NITRATE 2% VAG CREAM 45 GM VAGINAL SCH (20:27)
[2017-11-18] VITALS: BP 119/75; PULSE 78; RESP 18; TEMP 97.5; O2SAT 95
[2017-11-18 00:10] VITALS: PULSE 77
[2017-11-18] MEDS: MORPHINE SULFATE 2 MG/ML INJ IV PUSH PRN ×2 (02:33→10:04)
[2017-11-18 03:47] VITALS: PULSE 77
[2017-11-18 04:00] VITALS: BP 110/64; PULSE 74; RESP 18; TEMP 97.4; O2SAT 96
[2017-11-18] MEDS: ACETAMINOPHEN/HYDROcodone 325 MG/5 MG TAB PO PRN (05:26)
[2017-11-18] MEDS: SODIUM CHLOR 0.9% 1000 ML INJ 1,000 ML IV SCH (06:19)
[2017-11-18 08:00] VITALS: BP 118/70; PULSE 73; RESP 18; TEMP 97.5; O2SAT 96
[2017-11-18] MEDS: SODIUM CHLORIDE 0.9% FLUSH 10 ML FLUSH IV FLUSH SCH (09:00)
[2017-11-18] MEDS: QUEtiapine FUMARATE 200 MG TAB PO SCH (10:03)
[2017-11-18] MEDS: TAMSULOSIN HCL 0.4 MG CAP PO SCH (10:03)
[2017-11-18] MEDS: BACLOFEN 10 MG TAB PO SCH (10:03)
[2017-11-18] MEDS: FLUCONAZOLE 100 MG TAB PO SCH (10:04)
[2017-11-18] MEDS: clonazePAM 0.5 MG TAB PO SCH (10:04)
[2017-11-18] MEDS: CIPROFLOXACIN 400 MG PREMIX 200 ML IV SCH (10:13)
--- NOTE | 2017-11-18 10:45 | HHI.PR ---
Subjective Remarks Follow-up sepsis/pyelonephritis 11/13/17-patient seen and examined, complains of left flank pain. Afebrile 1- COMPLAINS OF ALOT OF LEFT FLANK PAIN STILL CONSULT UROLOGY - UROLOGY CONSULT IS PENDING STILL COMPLAINS OF LEFT GROIN AND FLANK PAIN COMPLAINS OF ITCHING FROM VAGINA AREA HAS LOOSE STOOL NOT DIARRHEA AM LABS PAIN CONTROL 1- CONTINUE CURRENT TREATMENT AWAIT UROLOGY CONSULT LESS VAGINAL ITCHING NO LOOSE STOOLS DW RN AND PATIENT STILL NEEDING IV PAIN MEDS -14 await urological consultation Less vaginal itching No loose stools Still taking IV pain meds Has some left groin and flank pain still Discussed with RN and patient 1-15 SEEN BY UROLOGY DC TO HOME TODAY Objective Vitals Vital Signs Date Time Temp Pulse Resp B/P (MAP) Pulse Ox O2 Delivery O2 Flow Rate FiO2 11/18/17 08:00 97.5 73 18 118/70 (86) 96 11/18/17 04:00 97.4 74 18 110/64 (79) 96 11/18/17 04:00 Room Air 11/18/17 03:47 77 11/18/17 00:10 77 11/18/17 00:00 97.5 78 18 119/75 (90) 95 11/18/17 00:00 Room Air 11/17/17 20:00 97.4 80 18 102/63 (76) 96 11/17/17 20:00 Room Air 11/17/17 19:49 90 11/17/17 16:00 85 11/17/17 16:00 97.5 88 20 111/66 (81) 96 113/68 (83) 116/54 (74) 11/17/17 12:00 80 11/17/17 12:00 96.3 91 20 96/63 (74) 96 I/O 11/17/17 11/17/17 11/17/17 11/18/17 11/18/17 11/18/17 07:00 15:00 23:00 07:00 15:00 23:00 Intake Total 560 ml 200 ml 2490 ml 1305 ml Output Total 900 ml 1650 ml Balance -340 ml 200 ml 840 ml 1305 ml Intake Oral 600 ml 240 ml IV Total 560 ml 200 ml 1890 ml 1065 ml Output Urine Total 900 ml 1650 ml # Voids 6 # Bowel Movements 1 0 Result Diagram: 11/16/17 0715 11/16/17 0715 Other Results Laboratory Tests Test 11/16/17 07:15 White Blood Count 4.4 TH/MM3 Red Blood Count 3.69 MIL/MM3 Hemoglobin 10.7 GM/DL Hematocrit 31.9 % Mean Corpuscular Volume 86.4 FL Mean Corpuscular Hemoglobin 29.1 PG Mean Corpuscular Hemoglobin Concent 33.7 % Red Cell Distribution Width 13.3 % Platelet Count 183 TH/MM3 Mean Platelet Volume 8.3 FL Neutrophils (%) (Auto) 41.5 % Lymphocytes (%) (Auto) 45.1 % Monocytes (%) (Auto) 6.9 % Eosinophils (%) (Auto) 5.5 % Basophils (%) (Auto) 1.0 % Neutrophils # (Auto) 1.8 TH/MM3 Lymphocytes # (Auto) 2.0 TH/MM3 Monocytes # (Auto) 0.3 TH/MM3 Eosinophils # (Auto) 0.2 TH/MM3 Basophils # (Auto) 0.0 TH/MM3 CBC Comment DIFF FINAL Differential Comment Blood Urea Nitrogen 12 MG/DL Creatinine 0.74 MG/DL Random Glucose 95 MG/DL Total Protein 6.6 GM/DL Albumin 3.3 GM/DL Calcium Level 8.8 MG/DL Phosphorus Level 4.0 MG/DL Magnesium Level 2.2 MG/DL Alkaline Phosphatase 68 U/L Aspartate Amino Transf (AST/SGOT) 12 U/L Alanine Aminotransferase (ALT/SGPT) 18 U/L Total Bilirubin 0.3 MG/DL Sodium Level 143 MEQ/L Potassium Level 4.0 MEQ/L Chloride Level 111 MEQ/L Carbon Dioxide Level 23.6 MEQ/L Anion Gap 8 MEQ/L Estimat Glomerular Filtration Rate 81 ML/MIN Imaging Last Impressions Chest X-Ray 11/11/17 1840 Signed Impressions: Service Date/Time: Saturday, November 11, 2017 18:58 - CONCLUSION: Normal examination. Hitesh Middleton MD Head CT 11/11/17 0000 Signed Impressions: Service Date/Time: Saturday, November 11, 2017 20:17 - CONCLUSION: Normal examination. Hitesh Middleton MD Abdomen/Pelvis CT 11/11/17 0000 Signed Impressions: Service Date/Time: Saturday, November 11, 2017 20:20 - CONCLUSION: Left-sided double-J ureteral catheter in good position. 2-3 mm stone at the level of L4-5 disc space on the left. Numerous gallstones without evidence of acute cholecystitis. Hitesh Middleton MD Objective Remarks GENERAL: Awake alert oriented talkative and cooperative --appears somewhat uncomfortable SKIN: Warm and dry. HEAD: Atraumatic. Normocephalic. EYES: Pupils equal and round. No scleral icterus. No injection or drainage. Extraocular muscles intact ENT: No nasal bleeding or discharge. Mucous membranes pink and moist. Tongue is midline NECK: Trachea midline. No JVD. Supple CARDIOVASCULAR: Regular rate and rhythm. S1 and S2 no S3 or S4 no heave or thrill or rub or gallop RESPIRATORY: No accessory muscle use. Clear to auscultation. Breath sounds equal bilaterally. GASTROINTESTINAL: Abdomen soft, non-tender, nondistended. Hepatic and splenic margins not palpable. Left-sided CVA tenderness MUSCULOSKELETAL: Extremities without clubbing, cyanosis, or edema. No obvious deformities. NEUROLOGICAL: Awake and alert. No obvious cranial nerve deficits. Motor grossly within normal limits. Five out of 5 muscle strength in the arms and legs. Normal speech. PSYCHIATRIC: Appropriate mood and affect; insight and judgment normal. Procedures NONE Medications and IVs Current Medications Ondansetron HCl (Zofran Inj) 4 mg ONCE ONCE IV PUSH Last administered on at 19:36; Start 11/11/17 at 19:15; Stop 11/11/17 at 19:16; Status DC Sodium Chloride 1,000 ml @ 999 mls/hr BOLUS ONCE IV Last administered on 19:36; Start 11/11/17 at 19:15; Stop 11/11/17 at 20:15; Status DC Morphine Sulfate (Morphine Inj) 2 mg ONCE ONCE IV PUSH Last administered on 19:36; Start 11/11/17 at 19:15; Stop 11/11/17 at 19:16; Status DC Iohexol (Omnipaque 350 Inj) 96 ml STK-MED ONCE IVCONTRAST Last administered on 11/11/17 20:30; Start 11/11/17 at 20:30; Stop 11/11/17 at 20:39; Status DC Ceftriaxone Sodium 1000 mg/ Sodium Chloride 100 ml @ 200 mls/hr ONCE ONCE IV Last administered on 11/11/17at 21:20; Start 11/11/17 at 21:00; Stop 11/11/17 at 21: 29; Status DC Sodium Chloride (NS Flush) 2 ml UNSCH PRN IV FLUSH FLUSH AFTER USING IV ACCESS Last administered on 11/15/17at 02:40; Start 11/11/17 at 22:15 Sodium Chloride (NS Flush) 2 ml BID IV FLUSH Last administered on 11/17/17at 20: 27; Start 11/12/17 at 09:00 Naloxone HCl (Narcan Inj) 0.4 mg UNSCH PRN IV PUSH SEE LABEL COMMENTS; Start at 22:15 Potassium Bicarb/ Potassium Chloride (K-Lyte Cl Eff) 50 meq ONCE ONCE PO Last administered on 11/11/17at 23:33; Start 11/11/17 at 22:15; Stop 11/11/17 at 22: 18; Status DC Ciprofloxacin/ Dextrose 200 ml @ 200 mls/hr Q12H IV Last administered on at 10:13; Start 11/11/17 at 23:00 Acetaminophen (Tylenol) 650 mg Q4H PRN PO temp > 101; Start 11/11/17 at 23:15; Stop 11/13/17 at 08:59; Status DC Morphine Sulfate (Morphine Inj) 2 mg Q3H PRN IV PUSH breakthrough pain Last administered on 11/18/17at 10:04; Start 11/12/17 at 00:00 Acetaminophen/ Hydrocodone Bitart (Oaks 5-325 Mg) 1 tab Q6H PRN PO pain > 5 Last administered on 11/18/17at 05:26; Start 11/12/17 at 01:00 Baclofen (Lioresal) 10 mg TID PO Last administered on 11/18/17at 10:03; Start at 09:00 Clonazepam (KlonoPIN) 0.5 mg BID PO Last administered on 11/18/17 10:04; Start 11/12/17 at 09:00 Ropinirole HCl (Requip) 1 mg TID PO Last administered on 11/18/17at 10:04; Start 11/12/17 at 09:00 Trazodone HCl (Desyrel) 50 mg HS PO Last administered on 11/17/17at 20:27; Start 11/12/17 at 21:00 Quetiapine Fumarate (SEROquel) 200 mg BID PO Last administered on 11/18/17at 10: 03; Start 11/12/17 at 09:00 Sodium Chloride 1,000 ml @ 100 mls/hr Q10H IV Last administered on 11/18/17at 06:19; Start 11/12/17 at 09:15 Sodium Chloride 1,000 ml @ 999 mls/hr BOLUS ONCE IV Last administered on at 09:34; Start 11/12/17 at 09:15; Stop 11/12/17 at 10:15; Status DC Potassium Bicarb/ Potassium Chloride (K-Lyte Cl Eff) 50 meq ONCE ONCE PO Last administered on 11/12/17at 14:18; Start 11/12/17 at 13:45; Stop 11/12/17 at 13: 47; Status DC Acetaminophen (Tylenol) 650 mg Q4H PRN PO Temp > 100.4; Start 11/13/17 at 08:00 Ondansetron HCl (Zofran Inj) 4 mg Q6H PRN IV PUSH NAUSEA; Start 11/13/17 at 08: 00 Potassium Chloride (KCl) 60 meq ONCE ONCE PO Last administered on 11/13/17at 12 :18; Start 11/13/17 at 12:00; Stop 11/13/17 at 12:02; Status DC Potassium Chloride (KCl) 60 meq ONCE ONCE PO Last administered on 11/15/17at 16 :14; Start 11/15/17 at 15:00; Stop 11/15/17 at 15:13; Status DC Fluconazole (Diflucan) 100 mg DAILY PO Last administered on 11/18/17at 10:04; Start 11/15/17 at 15:00 Miconazole Nitrate (Monistat 7 Vag Cream) 1 appl HS VAGINAL Last administered on 11/17/17at 20:27; Start 11/15/17 at 21:00; Stop 11/22/17 at 20:59 Tamsulosin HCl (Flomax) 0.4 mg ONCE ONCE PO Last administered on 11/17/17at 12: 27; Start 11/17/17 at 11:45; Stop 11/17/17 at 11:46; Status DC Tamsulosin HCl (Flomax) 0.4 mg DAILY PO Last administered on 11/18/17at 10:03; Start 11/17/17 at 11:45 A/P Problem List: (1) Sepsis ICD Code: A41.9 - Sepsis, unspecified organism (2) Pyelonephritis ICD Code: N12 - Tubulo-interstitial nephritis, not specified as acute or chronic Status: Acute (3) Nausea ICD Code: R11.0 - Nausea (4) Vomiting ICD Code: R11.10 - Vomiting, unspecified (5) UTI (urinary tract infection) ICD Code: N39.0 - Urinary tract infection, site not specified Status: Acute (6) History of Clostridium difficile infection ICD Code: Z86.19 - Personal history of other infectious and parasitic diseases (7) Hypokalemia ICD Code: E87.6 - Hypokalemia Status: Acute (8) Dizziness ICD Code: R42 - Dizziness and giddiness Assessment and Plan 57-year-old female with Pyelonephritis -Currently on IV Cipro ----positive for Pseudomonas continue on the IV Cipro -Urology consultation secondary to patient history of ureteral stent - Hydrocodone 5/325 mg every 4 h PRN pain > 5 and IV morphine 2 mg IV q3h PRN breakthrough pain Left-sided CVA tenderness Consult urology Hypokalemia -REPLACE and monitor Dizziness - head CT normal -Resolved -PT consult to treat and eval Nausea with vomiting-resolved History of C. Difficile colitis - check for c. difficile - Stool for culture and WBCs Hypotension -Resolved with IV fluid hydration HYPOKALEMIA WILL REPLACE VAGINAL CANDIDIASIS DIFLUCAN AND MONISTAT DVT prophylaxis - SCDs/TEDs CONSULT UROLOGY- NEED UROLOGY OPINIONS--CLEARED BY THEM DC TO HOME Discharge Planning CLEARED BY UROLOGY DC TO HOME Problem Qualifiers (1) UTI (urinary tract infection): Qualified Codes: N30.00 - Acute cystitis without hematuria Erick Ornelas DO Nov 18, 2017 10:45
[2017-11-18] MEDS ORDERED: CIPR-9 PO (10:49)
[2017-11-18] MEDS ORDERED: QUET-73 PO (10:49)
[2017-11-18] MEDS ORDERED: BACL10TA PO (10:49)
[2017-11-18] MEDS ORDERED: CLON0.5T PO (10:49)
[2017-11-18] MEDS ORDERED: MICO2CRE43 VAGINAL (10:49)
[2017-11-18] MEDS ORDERED: TAMS5CAP PO (10:49)
[2017-11-18] MEDS ORDERED: ROPI1TAB PO (10:49)
[2017-11-18] MEDS ORDERED: TRAZ50TA12 PO (10:49)
[2017-11-18] MEDS ORDERED: DIFL100T PO (10:49)
[2017-11-18] MEDS ORDERED: HYDR-3516 PO (10:49)
--- NOTE | 2017-11-18 10:51 | HHI.DS ---
Discharge Summary Admission Date Nov 11, 2017 at 22:12 Discharge Date: Nov 18, 2017 Admitting Diagnosis pyelonephritis, UTI, Nausea, History of C Diff (1) Sepsis ICD Code: A41.9 - Sepsis, unspecified organism Diagnosis: Principal (2) Pyelonephritis ICD Code: N12 - Tubulo-interstitial nephritis, not specified as acute or chronic Diagnosis: Principal Status: Acute (3) Nausea ICD Code: R11.0 - Nausea Diagnosis: Secondary (4) Vomiting ICD Code: R11.10 - Vomiting, unspecified Diagnosis: Secondary (5) UTI (urinary tract infection) ICD Code: N39.0 - Urinary tract infection, site not specified Diagnosis: Principal Status: Acute (6) History of Clostridium difficile infection ICD Code: Z86.19 - Personal history of other infectious and parasitic diseases Diagnosis: Secondary (7) Hypokalemia ICD Code: E87.6 - Hypokalemia Diagnosis: Principal Status: Acute (8) Dizziness ICD Code: R42 - Dizziness and giddiness Diagnosis: Secondary Procedures NONE Brief History - From Admission Ms. Dawkins is a 57 year old female with a history of severe sepsis secondary to urinary infection resulting from obstructive nephrolithiasis treated by Dr. Lopez at [facility], C. difficile colitis, anxiety/depression, IBS, GERD , and restless leg syndrome who presented to [facility] on 11/11/16 c/o severe left flank pain, hematuria, and dysuria accompanied by fever, chills, nausea and vomiting. The patient is found to have temperature of 103.6 and tachycardia with abnormal UA and examination c/w sepsis and pyelonephritis. The patient is seen in the ED. she reports having severe sepsis related to obstructive uropathy from kidney stones in September 2016. She states she spent about 10 days in ICU during that time. She was also found to have C. difficile colitis and was treated in September for us. She states that she is intermittently had problems with fever, chills, hematuria, and dysuria since that hospitalization. She states that her urologist wants to remove the double- J stents he placed in September but is requiring palomino upfront to schedule the procedure. She says she doesn't have any money and is a self-pay patient. She also reports nausea with vomiting but denies any diarrhea. She states she has not been eating solids for the last 3-4 days and has lost about 30 pounds in the last month. The patient did state that she felt lightheaded upon arising from the stretcher to go to the bathroom. She also reports feeling dizzy and falling down and "bumping" her head a couple of times over the past few days. Denies syncope. Head CT was normal. CBC/BMP: 11/16/17 0715 11/16/17 0715 Significant Findings Laboratory Tests Test 11/16/17 07:15 Red Blood Count 3.69 MIL/MM3 (4.00-5.30) Hemoglobin 10.7 GM/DL (11.6-15.3) Hematocrit 31.9 % (35.0-46.0) Lymphocytes (%) (Auto) 45.1 % (9.0-44.0) Eosinophils (%) (Auto) 5.5 % (0.0-4.0) Albumin 3.3 GM/DL (3.4-5.0) Aspartate Amino Transf (AST/SGOT) 12 U/L (15-37) Chloride Level 111 MEQ/L (98-107) Estimat Glomerular Filtration Rate 81 ML/MIN (>89) Imaging Last Impressions Chest X-Ray 11/11/17 1840 Signed Impressions: Service Date/Time: Saturday, November 11, 2017 18:58 - CONCLUSION: Normal examination. Hitesh Middleton MD Head CT 11/11/17 0000 Signed Impressions: Service Date/Time: Saturday, November 11, 2017 20:17 - CONCLUSION: Normal examination. Hitesh Middleton MD Abdomen/Pelvis CT 11/11/17 0000 Signed Impressions: Service Date/Time: Saturday, November 11, 2017 20:20 - CONCLUSION: Left-sided double-J ureteral catheter in good position. 2-3 mm stone at the level of L4-5 disc space on the left. Numerous gallstones without evidence of acute cholecystitis. Hitesh Middleton MD PE at Discharge GENERAL: Awake alert oriented talkative and cooperative --appears somewhat uncomfortable SKIN: Warm and dry. HEAD: Atraumatic. Normocephalic. EYES: Pupils equal and round. No scleral icterus. No injection or drainage. Extraocular muscles intact ENT: No nasal bleeding or discharge. Mucous membranes pink and moist. Tongue is midline NECK: Trachea midline. No JVD. Supple CARDIOVASCULAR: Regular rate and rhythm. S1 and S2 no S3 or S4 no heave or thrill or rub or gallop RESPIRATORY: No accessory muscle use. Clear to auscultation. Breath sounds equal bilaterally. GASTROINTESTINAL: Abdomen soft, non-tender, nondistended. Hepatic and splenic margins not palpable. Left-sided CVA tenderness MUSCULOSKELETAL: Extremities without clubbing, cyanosis, or edema. No obvious deformities. NEUROLOGICAL: Awake and alert. No obvious cranial nerve deficits. Motor grossly within normal limits. Five out of 5 muscle strength in the arms and legs. Normal speech. PSYCHIATRIC: Appropriate mood and affect; insight and judgment normal. Hospital Course Follow-up sepsis/pyelonephritis 11/13/17-patient seen and examined, complains of left flank pain. Afebrile 1-11 COMPLAINS OF ALOT OF LEFT FLANK PAIN STILL CONSULT UROLOGY 1-12 UROLOGY CONSULT IS PENDING STILL COMPLAINS OF LEFT GROIN AND FLANK PAIN COMPLAINS OF ITCHING FROM VAGINA AREA HAS LOOSE STOOL NOT DIARRHEA AM LABS PAIN CONTROL 1-13 CONTINUE CURRENT TREATMENT AWAIT UROLOGY CONSULT LESS VAGINAL ITCHING NO LOOSE STOOLS DW RN AND PATIENT STILL NEEDING IV PAIN MEDS 1-14 await urological consultation Less vaginal itching No loose stools Still taking IV pain meds Has some left groin and flank pain still Discussed with RN and patient 1-15 SEEN BY UROLOGY DC TO HOME TODAY 57-year-old female with Pyelonephritis -Currently on IV Cipro ----positive for Pseudomonas continue on the IV Cipro -Urology consultation secondary to patient history of ureteral stent - Hydrocodone 5/325 mg every 4 h PRN pain > 5 and IV morphine 2 mg IV q3h PRN breakthrough pain Left-sided CVA tenderness Consult urology--CLEARED BY THEM DC TO HOME Hypokalemia -REPLACE and monitor Dizziness - head CT normal -Resolved -PT consult to treat and eval Nausea with vomiting-resolved History of C. Difficile colitis - check for c. difficile - Stool for culture and WBCs Hypotension -Resolved with IV fluid hydration HYPOKALEMIA WILL REPLACE VAGINAL CANDIDIASIS DIFLUCAN AND MONISTAT DVT prophylaxis - SCDs/TEDs Pt Condition on Discharge: Good Discharge Disposition: Discharge Home Discharge Time: <= 30 minutes Discharge Instructions DIET: Follow Instructions for: Heart Healthy Diet Speech Therapy-Diet Recommends: Regular Activities you can perform: Regular-No Restrictions Follow up Referrals: PCP Follow-up - 3-5 Days Surgical Urology - 2 Weeks with Tj Daley MD New Medications: Ciprofloxacin (Cipro) 500 Mg Tab 500 MG PO BID for Infection for 14 Days, #28 TAB 0 Refills Fluconazole (Diflucan) 100 Mg Tab 100 MG PO DAILY for Infection, #14 TAB Hydrocodone/Acetaminophen (Hydrocodone-Acetamin 5-325 mg) 5 Mg-325 Mg Tablet 1 TAB PO Q6H PRN for pain > 5, #50 TAB Miconazole Nitrate Vaginal (Eq Miconazole 7 Day Treat) 2 % Cre 1 APPL VAGINAL HS for Infection, #1 TUBE Tamsulosin (Flomax) 0.4 Mg Cap 0.4 MG PO DAILY for Urinary Symptom Managemen, #30 CAP Continued Medications: Baclofen (Baclofen) 10 Mg Tab 10 MG PO TID for Muscle Spasm, #90 TAB 0 Refills (This prescription has been renewed) Clonazepam (Clonazepam) 0.5 Mg Tab 0.5 MG PO BID for Anxiety and/or Insomnia, #60 TAB 0 Refills (This prescription has been renewed) Quetiapine ER (Quetiapine ER) 400 Mg Tab 400 MG PO DAILY for Agitation, #30 TAB 0 Refills (This prescription has been renewed) Ropinirole (Ropinirole) 1 Mg Tab 1 MG PO TID for RLS, #90 TAB 0 Refills (This prescription has been renewed) Tramadol (Tramadol) 50 Mg Tab 50 MG PO BID PRN for PAIN, TAB 0 Refills Trazodone (Trazodone) 50 Mg Tab 50 MG PO HS for Control Depression, #30 TAB 0 Refills (This prescription has been renewed) Erick Ornelas DO Nov 18, 2017 10:51
[2017-11-18 12:00] VITALS: BP 117/68; PULSE 83; RESP 18; TEMP 97.5; O2SAT 98
== END 2017-11-18 13:37 | disposition home or self-care (01) | DRG 872 ==
LOC: NEPC 18:06 → NEDA 22:06 → OBSVTOIN 22:12 → NEDH 11-12 02:57 → NEDA 11-12 06:37 → NEDH 11-12 06:47 → N04B 11-12 12:38
PROVIDERS: ADMIT Hospitalist; ATTEND Hospitalist
DX: A41.52 Sepsis due to Pseudomonas (principal); N12 Tubulo-interstitial nephritis, not specified as acute or chronic; N20.2 Calculus of kidney with calculus of ureter; B37.3 Candidiasis of vulva and vagina; G25.81 Restless legs syndrome; K21.9 Gastro-esophageal reflux disease without esophagitis; K58.0 Irritable bowel syndrome with diarrhea; K80.20 Calculus of gallbladder without cholecystitis without obstruction; E87.6 Hypokalemia; E86.0 Dehydration; F32.9 Major depressive disorder, single episode, unspecified; F41.9 Anxiety disorder, unspecified; Z87.891 Personal history of nicotine dependence
CPT/HCPCS: 70450; 71045; 74177; 80048; 80053; 81001; 83605; 83690; 83735; 84100; 84443; 85025; 85027; 85610; 85730; 86850; 86900; 86901; 87040; 87077; 87086; 87186; 87804; 93005; 96361; 96365; 96375; J0696; J0744; J2270; J2405; J7030; Q9967

== ENCOUNTER 2017-12-08 20:07 | Emergency (ER) | payer SELFPAY ==
[~2017-12-08] VITALS: Ht 157.5 cm; Wt 80.0 kg
[~2017-12-08 20:07] MED LIST changes: +BACL10TA PO; +CIPR-9 PO; -CLON.5 PO; +CLON0.5T PO; -DICL50 PO; +DIFL100T PO; -GABA250S PO; +HYDR-3516 PO; -METH750T2 PO; +MICO2CRE43 VAGINAL; -MIRA0.5T PO; -PRIL20CA PO; +QUET-73 PO; +ROPI1TAB PO; +TAMS5CAP PO; +TRAM50TA PO; +TRAZ50TA12 PO; -ZOLO50TA PO
[2017-12-08 20:10] VITALS: BP 133/80; PULSE 88; RESP 20; TEMP 98.2; O2SAT 98
[2017-12-08] MEDS ORDERED: SODIUM CHLOR 0.9% 1000 ML INJ 1,000 ML IV ONE (20:30)
--- NOTE | 2017-12-08 20:37 | PD ---
HPI Chief Complaint: Flank/Kidney Pain Time Seen by Provider: 20:18 Travel History International Travel<30 days: No Contact w/Intl Traveler<30days: No Traveled to known affect area: No History of Present Illness HPI The patient is a 57 year old female who presents to the [facility] emergency department with a history of recurrent left flank pain, generalized weakness with lightheaded sensation, nausea, loose stools twice per day, urinary frequency and urgency with incontinence that all became worse again after completing a course of ciprofloxacin a week ago on Saturday for diagnosis of pseudomonas urinary tract infection. The patient was admitted to the hospital from November 11 through November 18. The patient had a consultation with the urologist, Dr. Daley. The patient was noted to have a stent in her left ureter. The patient was cleared for discharge by the urologist that saw her in the hospital and it was recommended that she follow-up as an outpatient in 2 weeks. She reports that she has not made the appointment or followed up with the urologist that she reports that she cannot afford to go to the specialist. She reports that she did go to be used daily at clinic this past Saturday. She reports that a urinalysis was done at that time which was sent for culture. She reports that she tried to call to find out the results, however she was not able to hear back from them. I review systems, the patient denies having any known recent fevers, congestion, neck pain, chest pain, shortness of breath, abdominal pain, vomiting, or neurologic symptoms. PFSH Past Medical History Narrative Medical The patient's past medical history is significant for a history of obstructive nephrolithiasis status post ureteral stent placement, history of C. difficile colitis, history of anxiety and depression, irritable bowel syndrome, acid reflux, restless leg syndrome, history of chronic back pain. Blood Disorders: No Anxiety: Yes Depression: Yes Heart Rhythm Problems: No Cancer: No Cardiac Catheterization: No Cardiovascular Problems: No Congestive Heart Failure: No COPD: Yes Diabetes: No Diminished Hearing: No Endocrine: No Gastrointestinal Disorders: Yes (acid reflux, IBS) Glaucoma: No Genitourinary: No Hepatitis: No Hiatal Hernia: No Hypertension: No Immune Disorder: No Musculoskeletal: Yes (CARPAL TUNNEL, ARTHRITIS) Neurologic: No Psychiatric: Yes (anxiety) Reproductive: Yes Respiratory: No Thyroid Disease: No Tetanus Vaccination: < 5 Years Influenza Vaccination: No ?: Not Tubal Ligation: Yes Past Surgical History Narrative Surgical The patient's past surgical history is significant for right knee arthroscopy, bilateral tube ligation, hysterectomy, appendectomy, , breast reduction , ureteral stent placement left side. Abdominal Surgery: Yes Appendectomy: Yes Section: Yes (X1) Coronary Artery Bypass Graft: No Gynecologic Surgery: Yes (d&c, cyst removed from ovary ) Hysterectomy: Yes Other Surgery: Yes (BREAST REDUCTION) Social History Alcohol Use: No (DENIES) Tobacco Use: No (QUIT 2YRS AGO) Substance Use: No (DENIES) Allergies-Medications (Allergen,Severity, Reaction): Coded Allergies: No Known Allergies (Verified Allergy, Unknown, 12/08/17) Reported Meds & Prescriptions Reported Meds & Active Scripts Active Hydrocodone-Acetamin 5-325 mg (Hydrocodone/Acetaminophen) 5 Mg-325 Mg Tablet 1 Tab PO Q6H PRN Flomax (Tamsulosin HCl) 0.4 Mg Cap 0.4 Mg PO DAILY Quetiapine ER (Quetiapine Fumarate) 400 Mg Tab 400 Mg PO DAILY Baclofen 10 Mg Tab 10 Mg PO TID Ropinirole 1 Mg Tab 1 Mg PO TID Clonazepam 0.5 Mg Tab 0.5 Mg PO BID Trazodone (Trazodone HCl) 50 Mg Tab 50 Mg PO HS Reported Tramadol (Tramadol HCl) 50 Mg Tab 50 Mg PO BID PRN Review of Systems Except as stated in HPI: all other systems reviewed are Neg General / Constitutional: No: Fever Eyes: No: Visual changes HENT: Positive: Lightheadedness, No: Headaches, Congestion Cardiovascular: No: Chest Pain or Discomfort Respiratory: No: Cough, Shortness of Breath Gastrointestinal: Positive: Nausea, Diarrhea, Changes in Bowel Habits, Loss of Appetite, No: Vomiting, Abdominal Pain, Indigestion Genitourinary: Positive: Urgency, Frequency, Dysuria, Incontinence, Flank Pain (left flank pain) Musculoskeletal: No: Pain Skin: No Rash Neurologic: Positive: Weakness (generalized weakness), Dizziness, No: Focal Abnormalities, Change in Mentation, Slurred Speech, Sensory Disturbance Psychiatric: No: Depression Endocrine: No: Polydipsia Hematologic/Lymphatic: No: Easy Bruising Physical Exam Narrative General: The patient is a well-developed well-nourished female in no acute distress. Head and Neck exam: Head is normocephalic atraumatic. Eyes: EOMI, pupils are equal round and reactive to light. Nose: Midline septum with pink mucous membranes Mouth: Dentition unremarkable. Moist mucus membranes. Posterior oropharynx is not erythematous. No tonsillar hypertrophy. Uvula midline. Airway patent. Neck: No palpable lymphadenopathy. No nuchal rigidity. No thyromegaly. Cardiovascular: Regular rate and rhythm without murmurs, gallops, or rubs. Lungs: Clear to auscultation bilaterally. No wheezes, rhonchi, or rales. Abdomen: Soft, without tenderness to palpation in all 4 quadrants of the abdomen. No guarding, rebound, or rigidity. Normal bowel sounds are audible. No tenderness on palpation of McBurney's point. Negative Quigley's sign. Extremities: No clubbing, cyanosis, or edema. 2+ pulses in all 4 extremities. No calf tenderness on palpation. Back: No spinous process tenderness to palpation. Reported left-sided CVA tenderness on palpation. Neurologic Exam: Grossly nonfocal. Skin Exam: No rash noted. Intact skin that is warm and dry. Data Data Last Documented VS Vital Signs Date Time Temp Pulse Resp B/P (MAP) Pulse Ox O2 Delivery O2 Flow Rate FiO2 12/08/17 20:53 85 15 121/74 (90) 98 Room Air 12/08/17 20:10 98.2 Orders Orders Electrocardiogram (12/08/17 20:29) Complete Blood Count With Diff (12/08/17 20:29) Comprehensive Metabolic Panel (12/08/17 20:29) Creatine Kinase (Cpk) (12/08/17 20:29) Ckmb (Isoenzyme) Profile (12/08/17 20:29) Troponin I (12/08/17 20:29) Prothrombin Time / Inr (Pt) (12/08/17 20:29) Act Partial Throm Time (Ptt) (12/08/17 20:29) C-Reactive Protein (Crp) (12/08/17 20:29) Lipase (12/08/17 20:29) Urinalysis - C+S If Indicated (12/08/17 20:29) Magnesium (Mg) (12/08/17 20:29) C Diff Toxin Pcr (12/08/17 20:29) Chest, Single Ap (12/08/17 20:29) Iv Access Insert/Monitor (12/08/17 20:29) Ecg Monitoring (12/08/17 20:29) Oximetry (12/08/17 20:29) Sodium Chlor 0.9% 1000 Ml Inj (Ns 1000 M (12/08/17 20:30) Urine Culture (12/08/17 20:45) Ketorolac Inj (Toradol Inj) (12/08/17 21:30) Mandatory Outpatient Referral (12/08/17 21:59) Abdomen, Kub Only (12/08/17 22:08) Ed Discharge Order (12/08/17 22:49) Labs Laboratory Tests Test 12/08/17 20:45 White Blood Count 4.6 TH/MM3 Red Blood Count 4.24 MIL/MM3 Hemoglobin 12.6 GM/DL Hematocrit 36.3 % Mean Corpuscular Volume 85.7 FL Mean Corpuscular Hemoglobin 29.6 PG Mean Corpuscular Hemoglobin Concent 34.6 % Red Cell Distribution Width 13.9 % Platelet Count 154 TH/MM3 Mean Platelet Volume 8.3 FL Neutrophils (%) (Auto) 42.8 % Lymphocytes (%) (Auto) 42.8 % Monocytes (%) (Auto) 7.2 % Eosinophils (%) (Auto) 6.2 % Basophils (%) (Auto) 1.0 % Neutrophils # (Auto) 2.0 TH/MM3 Lymphocytes # (Auto) 2.0 TH/MM3 Monocytes # (Auto) 0.3 TH/MM3 Eosinophils # (Auto) 0.3 TH/MM3 Basophils # (Auto) 0.0 TH/MM3 CBC Comment DIFF FINAL Differential Comment Prothrombin Time 10.0 SEC Prothromb Time International Ratio 1.0 RATIO Activated Partial Thromboplast Time 23.3 SEC Urine Color YELLOW Urine Turbidity HAZY Urine pH 5.5 Urine Specific [place] 1.007 Urine Protein 30 mg/dL Urine Glucose (UA) NEG mg/dL Urine Ketones NEG mg/dL Urine Occult Blood LARGE Urine Nitrite NEG Urine Bilirubin NEG Urine Urobilinogen LESS THAN 2.0 MG/DL Urine Leukocyte Esterase LARGE Urine RBC 18 /hpf Urine WBC 35 /hpf Urine Squamous Epithelial Cells <1 /hpf Urine Amorphous Sediment RARE Urine Bacteria FEW /hpf Urine Mucus FEW /lpf Microscopic Urinalysis Comment CULTURE INDICATED Blood Urea Nitrogen 17 MG/DL Creatinine 0.91 MG/DL Random Glucose 102 MG/DL Total Protein 7.2 GM/DL Albumin 4.0 GM/DL Calcium Level 9.1 MG/DL Magnesium Level 1.9 MG/DL Alkaline Phosphatase 93 U/L Aspartate Amino Transf (AST/SGOT) 14 U/L Alanine Aminotransferase (ALT/SGPT) 24 U/L Total Bilirubin 0.2 MG/DL Sodium Level 140 MEQ/L Potassium Level 3.7 MEQ/L Chloride Level 108 MEQ/L Carbon Dioxide Level 25.1 MEQ/L Anion Gap 7 MEQ/L Estimat Glomerular Filtration Rate 64 ML/MIN Total Creatine Kinase 36 U/L Troponin I LESS THAN 0.02 NG/ML C-Reactive Protein LESS THAN 0.29 MG/DL Lipase 149 U/L MDM Medical Decision Making Medical Screen Exam Complete: Yes Emergency Medical Condition: Yes Medical Record Reviewed: Yes Interpretation(s) Last Impressions Chest X-Ray 12/08/172028 Signed Impressions: Service Date/Time: Friday, December 08, 2017 20:37 - CONCLUSION: No acute cardiopulmonary disease. KFabian Dumont MD Differential Diagnosis Recurrent pyelonephritis, versus stent-related pain, versus chronic pain, versus sepsis Narrative Course During the course of the patients emergency department visit, the patients history, examination, and differential diagnosis were reviewed with the patient. The patient was placed on a conveyor monitor with oximetry and frequent blood pressure monitoring. The patient had IV access obtained and blood work sent for analysis. The patient's vital signs are all within normal limits. The patient has no SIRS criteria noted, however in spite of this after reviewing the electronic medical record and the patient having a confirm pseudomonas infection complicating her left ureteral stent, blood cultures 2 were ordered. A urinalysis will be sent along with her other laboratory studies. The patient was initially provided normal saline a 1 L IV fluid bolus, Zofran 4 mg IV. The patients laboratory studies were reviewed and remarkable for white count 4.6 , hemoglobin 12.6, platelets 154 with eosinophils 6.2, CMP is remarkable for chloride of 108, GFR 64, AST 14, cardiac enzymes within normal limits, C- reactive protein less than 0.29, lipase 149, PT 10, PTT 23.3, urinalysis shows hazy urine, 30 protein, large occult blood, large leukocyte esterase, 18 rbc's, 35 wbc's, few bacteria, culture indicated. Given the patient having a history of ureteral stent, the patient's urinalysis findings could be related to the stent being in place. We will await culture for further antibiotic treatment as the patient's white count is normal, C-reactive protein is less than 0.29, and patient's vital signs are all within normal limits. Radiology studies were reviewed and remarkable for a chest x-ray shows no acute cardiopulmonary disease. KUB reveals ureteral stent to be in place Review of the record reveals that the patient was seen by while in the hospital. She reports that she has not followed up with the doctor as she cannot afford to. The patient according to the record is uninsured and will be given an outpatient mandatory follow-up with for further evaluation and treatment and possible stent removal. The patient reports that the stent has been in place since September. The patient reports that her left flank pain is unbearable. The patient reports that she is on tramadol for chronic low back pain, however she's been on this for years. She reports that it is not helping with this. The patient will be given a short course of pain reliever, hydrocodone. The patient was instructed to discontinue the tramadol while taking this. The patient is resting comfortably and feels better, is alert and in no distress. The patients results and examination findings were discussed with the patient. The repeat examination is unremarkable and benign. The history, exam, diagnostic testing, and current condition do not suggest any significant pathology to warrant further testing, continued ED treatment, admission, or surgical evaluation at this point. The vital signs have been stable. The patient does not have uncontrollable pain, intractable vomiting, or other significant symptoms. The patient's condition is stable and appropriate for discharge. The patient will pursue further outpatient evaluation with a primary care physician or other designated or consulting physician as indicated in the discharge instructions. The patient expressed understanding and was agreeable with this plan. Diagnosis Primary Impression: Left flank pain Additional Impression: Retained ureteral stent Referrals: Tj Daley MD call for appointment Patient Instructions: Flank Pain (ED), General Instructions Additional Instructions: The patient will be given a short course of pain reliever, hydrocodone. The patient was instructed to discontinue the tramadol while taking this. Med/Other Pt SpecificInfo: Prescription(s) given Scripts Hydrocodone/Acetaminophen (Hydrocodone-Acetamin 5-325 mg) 5 Mg-325 Mg Tablet 1 TAB PO Q6H Y for pain > 5, #12 TAB Prov: Toña Espinal MD 12/08/17 Disposition: 01 DISCHARGE HOME Condition: Stable Toña Espinal MD Dec 08, 2017 20:37
[2017-12-08 20:53] VITALS: BP 121/74; PULSE 85; RESP 15; O2SAT 98
--- NOTE | 2017-12-08 21:03 | RADRPT ---
EXAM DATE/TIME: 12/08/2017 20:37 [facility] COMPARISON: CHEST SINGLE AP, November 11, 2017, 18:58. INDICATIONS : Genitourinary complaint with low back pain. MEDICAL HISTORY : Chronic obstructive pulmonary disease. Renal calculi. SURGICAL HISTORY : Hysterectomy. Appendectomy. section. ENCOUNTER: Initial ACUITY: 1 day PAIN SCORE: 0/10 LOCATION: Bilateral chest FINDINGS: The lungs are clear without infiltrate, nodule, or mass. There is no appreciable pleural effusion fo r technique. Heart and mediastinum are unremarkable. CONCLUSION: No acute cardiopulmonary disease. David Dumont MD on December 08, 2017 at 21:00 Board Certified Radiologist. This report was verified electronically.
[2017-12-08 21:11] LABS: EOSINOPHIL # 0.3 TH/MM3 (0-0.4); EOSINOPHIL % 6.2 % (0.0-4.0); HEMATOCRIT 36.3 % (35.0-46.0); HEMOGLOBIN 12.6 GM/DL (11.6-15.3); LYMPH % 42.8 % (9.0-44.0); MEAN CELL VOLUME 85.7 FL (80.0-100.0); MEAN CORPUSCULAR HEMOGLOBIN 29.6 PG (27.0-34.0); MEAN CORPUSCULAR HGB CONC 34.6 % (32.0-36.0); MEAN PLATELET VOLUME 8.3 FL (7.0-11.0); MONO % 7.2 % (0.0-8.0); MONOCYTE # 0.3 TH/MM3 (0-0.9); NEUT % 42.8 % (16.0-70.0); PLATELET COUNT 154 TH/MM3 (150-450); RED BLOOD COUNT 4.24 MIL/MM3 (4.00-5.30); RED CELL DISTRIBUTION WIDTH 13.9 % (11.6-17.2); WHITE BLOOD COUNT 4.6 TH/MM3 (4.0-11.0)
[2017-12-08 21:17] LABS: AMORPHOUS SEDIMENT, URINE RARE; BACTERIA, URINE FEW /hpf; BILIRUBIN, URINE NEG (NEG); BLOOD, URINE LARGE (NEG); GLUCOSE,URINE NEG (NEG); KETONE, URINE NEG (NEG); MUCUS URINE FEW /lpf (OCC); NITRITE,URINE NEG (NEG); PH, URINE 5.5 (5.0-8.5); SQUAMOUS EPITHELIAL CELL URINE <1 /hpf (0-5); URINE COLOR YELLOW (YELLW/STRAW); URINE LEUKOCYTE ESTERASE LARGE (NEG)
[2017-12-08] MEDS ORDERED: KETOROLAC TROMETHAMINE 30 MG/ML (IVP) VIAL IV PUSH ONE (21:30)
[2017-12-08 21:31] LABS: AST (GOT) 14 U/L (15-37); BICARBONATE 25.1 MEQ/L (21.0-32.0); BLOOD UREA NITROGEN 17 MG/DL (7-18); CALCIUM 9.1 MG/DL (8.5-10.1); CHLORIDE 108 MEQ/L (98-107); CREATININE 0.91 MG/DL (0.50-1.00); GLOMERULAR FILTRATION RATE 64 ML/MIN (>89); GLUCOSE,RANDOM 102 MG/DL (74-106); MAGNESIUM 1.9 MG/DL (1.5-2.5); SODIUM (NA) 140 MEQ/L (136-145)
[2017-12-08 21:32] LABS: ALT (GPT) 24 U/L (10-53)
[2017-12-08 21:34] LABS: ALKALINE PHOSPHATASE 93 U/L (45-117); C-REACTIVE PROTEIN LESS THAN 0.29 MG/DL (0.00-0.30); TOTAL BILIRUBIN ADULT 0.2 MG/DL (0.2-1.0); TOTAL PROTEIN 7.2 GM/DL (6.4-8.2); TROPONIN I LESS THAN 0.02 NG/ML (0.02-0.05)
--- NOTE | 2017-12-08 22:48 | RADRPT ---
EXAM DATE/TIME: 12/08/2017 22:33 [facility] COMPARISON: CT ABDOMEN & PELVIS W CONTRAST, November 11, 2017, 20:20. INDICATIONS : Abdominal pain, for the past month. MEDICAL HISTORY : Chronic obstructive pulmonary disease. SURGICAL HISTORY : Hysterectomy. Appendectomy. section. ENCOUNTER: Subsequent ACUITY: 1 month PAIN SCORE: 7/10 LOCATION: Bilateral abdomen FINDINGS: The bowel gas is nonspecific. There are no signs of obstruction or free air for technique. No defini te calcified stones are identified for technique. The gallbladder demonstrates multiple stones withou t gallbladder wall thickening, or pericholecystic fluid. Double J stent is present on the left side w ith proximal tip overlapping the kidney and distal tip overlapping the bladder. No definite calcified stones are identified adjacent to the stent. CONCLUSION: Cholelithiasis. David Dumont MD on December 08, 2017 at 22:44 Board Certified Radiologist. This report was verified electronically.
[2017-12-08] MEDS ORDERED: HYDR-3516 PO (22:50)
--- NOTE | 2017-12-09 22:08 | EKG ---
Date Performed: 12/08/2017 Time Performed: 21:02:14 PTAGE: 57 years EKG: Sinus rhythm NORMAL ECG NO PREVIOUS TRACING DOCTOR: Zhang Coyle Interpretating Date/Time 12/09/2017 22:02:06
== END 2017-12-08 23:18 | disposition home or self-care (01) ==
LOC: NEPC 20:07
DX: K80.20 Calculus of gallbladder without cholecystitis without obstruction (principal); R53.1 Weakness; R11.0 Nausea; R19.7 Diarrhea, unspecified; R35.0 Frequency of micturition; R39.15 Urgency of urination; J44.9 Chronic obstructive pulmonary disease, unspecified; M19.90 Unspecified osteoarthritis, unspecified site; K21.9 Gastro-esophageal reflux disease without esophagitis
CPT/HCPCS: 71045; 74018; 80053; 81001; 82550; 83690; 83735; 84484; 85025; 85610; 85730; 86140; 87086; 87106; 93005; 96361; 96374; 99285; J1885; J7030

== ENCOUNTER 2018-01-11 15:01 | Inpatient (IN) | payer SELFPAY ==
[~2018-01-11] VITALS: Ht 157.5 cm; Wt 80.0 kg
[~2018-01-11 15:01] MED LIST changes: -CIPR-9 PO; -DIFL100T PO; -MICO2CRE43 VAGINAL
[2018-01-11 16:15] VITALS: BP 113/56; PULSE 79; RESP 18; TEMP 97.5; O2SAT 96
--- NOTE | 2018-01-11 17:17 | RADRPT ---
EXAM DATE/TIME: 01/11/2018 16:41 [facility] COMPARISON: No previous studies available for comparison. INDICATIONS : Chest Pain MEDICAL HISTORY : None. SURGICAL HISTORY : None. ENCOUNTER: Initial ACUITY: 1 day PAIN SCORE: 8/10 LOCATION: Bilateral chest FINDINGS: PA and lateral views of the chest. The lungs are clear. Cardiomediastinal silhouette within normal li mits. No evidence of pleural effusion or pneumothorax. CONCLUSION: No acute cardiopulmonary disease identified. Bimal Albert MD on January 11, 2018 at 17:15 Board Certified Radiologist. This report was verified electronically.
[2018-01-11 18:22] VITALS: BP 137/83; PULSE 68; RESP 12; O2SAT 98
[2018-01-11] MEDS ORDERED: KETOROLAC TROMETHAMINE 30 MG/ML (IVP) VIAL IV PUSH ONE (18:30)
[2018-01-11] MEDS ORDERED: SODIUM CHLOR 0.9% 1000 ML INJ 1,000 ML IV ONE ×2 (18:30→21:00)
[2018-01-11] MEDS ORDERED: ONDANSETRON HCL 4 MG/2 ML VIAL IV PUSH ONE (18:30)
--- NOTE | 2018-01-11 18:44 | PD ---
HPI Chief Complaint: Flank/Kidney Pain Time Seen by Provider: 18:21 Travel History International Travel<30 days: No Contact w/Intl Traveler<30days: No Traveled to known affect area: No History of Present Illness HPI 57-year-old female presents to the emergency department for evaluation of left flank pain. Patient reports history of sepsis, nephrolithiasis with stent. She states this has been removed by Dr. Goldberg. Patient states that she has been having intermittent issues since September. She states this pain episode started approximately one week ago. She reports left flank pain and rates the left groin. She also reports left-sided chest pain and lightheadedness. Patient states she is currently on Cipro for UTI. She denies any cardiac history. Patient reports pain 9/10 the left flank that radiates to the left abdomen. She reports associated nausea, vomiting, decreased appetite. She has reports diarrhea. No exacerbating or alleviating factors. Moderate severity. PFSH Past Medical History Blood Disorders: No Anxiety: Yes Depression: Yes Heart Rhythm Problems: No Cancer: No Cardiac Catheterization: No Cardiovascular Problems: No Congestive Heart Failure: No COPD: Yes Diabetes: No Diminished Hearing: No Endocrine: No Gastrointestinal Disorders: Yes (acid reflux, IBS) Glaucoma: No Genitourinary: No Hepatitis: No Hiatal Hernia: No Hypertension: No Immune Disorder: No Musculoskeletal: Yes (CARPAL TUNNEL, ARTHRITIS) Neurologic: No Psychiatric: Yes (anxiety) Reproductive: Yes Respiratory: No Thyroid Disease: No ?: Not Tubal Ligation: Yes Past Surgical History Abdominal Surgery: Yes Appendectomy: Yes Section: Yes (X1) Coronary Artery Bypass Graft: No Gynecologic Surgery: Yes (d&c, cyst removed from ovary ) Hysterectomy: Yes Other Surgery: Yes (BREAST REDUCTION, KIDNEY STENTS) Social History Alcohol Use: No Tobacco Use: No Substance Use: No Allergies-Medications (Allergen,Severity, Reaction): Coded Allergies: No Known Allergies (Verified Allergy, Unknown, 01/11/18) Reported Meds & Prescriptions Reported Meds & Active Scripts Active Flomax (Tamsulosin HCl) 0.4 Mg Cap 0.4 Mg PO DAILY Quetiapine ER (Quetiapine Fumarate) 400 Mg Tab 400 Mg PO DAILY Baclofen 10 Mg Tab 10 Mg PO TID Ropinirole 1 Mg Tab 1 Mg PO TID Clonazepam 0.5 Mg Tab 0.5 Mg PO BID Trazodone (Trazodone HCl) 50 Mg Tab 50 Mg PO HS Reported Tramadol (Tramadol HCl) 50 Mg Tab 50 Mg PO BID PRN Review of Systems Except as stated in HPI: all other systems reviewed are Neg Physical Exam Narrative GENERAL: Well-nourished, well-developed female patient, ambulatory. Afebrile. SKIN: Focused skin assessment warm/dry. HEAD: Normocephalic. Atraumatic. EYES: No scleral icterus. No injection or drainage. NECK: Supple, trachea midline. No JVD or lymphadenopathy. CARDIOVASCULAR: Regular rate and rhythm without murmurs, gallops, or rubs. RESPIRATORY: Breath sounds equal bilaterally. No accessory muscle use. Lungs sounds are clear to auscultation. GASTROINTESTINAL: Abdomen soft and nondistended. Left lower quadrant tenderness to palpation. MUSCULOSKELETAL: No cyanosis, or edema. Left-sided chest wall pain is easily reproducible with palpation. BACK: Nontender without obvious deformity. Reported left CVA tenderness. Data Data Last Documented VS Vital Signs Date Time Temp Pulse Resp B/P (MAP) Pulse Ox O2 Delivery O2 Flow Rate FiO2 01/11/18 20:37 64 16 108/62 (77) 98 Room Air 01/11/18 16:15 97.5 Orders Orders Electrocardiogram (01/11/18 16:20) Complete Blood Count With Diff (01/11/18 16:20) Basic Metabolic Panel (Bmp) (01/11/18 16:20) Ckmb (Isoenzyme) Profile (01/11/18 16:20) Troponin I (01/11/18 16:20) Urinalysis - C+S If Indicated (01/11/18 16:20) Chest, Pa & Lat (01/11/18 16:20) Act Partial Throm Time (Ptt) (01/11/18 18:30) Prothrombin Time / Inr (Pt) (01/11/18 18:30) C Diff Toxin Pcr (01/11/18 18:30) Sodium Chlor 0.9% 1000 Ml Inj (Ns 1000 M (01/11/18 18:30) Ondansetron Inj (Zofran Inj) (01/11/18 18:30) Ketorolac Inj (Toradol Inj) (01/11/18 18:30) Ct Abd/Pel W/O Iv Contrast (01/11/18 ) Hepatic Functional Panel (01/11/18 16:20) Lipase (01/11/18 16:20) Magnesium (Mg) (01/11/18 16:20) Urine Culture (01/11/18 19:00) Sodium Chlor 0.9% 1000 Ml Inj (Ns 1000 M (01/11/18 21:00) Ceftriaxone Inj (Rocephin Inj) (01/11/18 21:00) Admit Order (Ed Use Only) (01/11/18 21:32) Labs Laboratory Tests Test 01/11/18 18:00 01/11/18 19:00 White Blood Count 5.9 TH/MM3 Red Blood Count 4.40 MIL/MM3 Hemoglobin 13.2 GM/DL Hematocrit 38.0 % Mean Corpuscular Volume 86.3 FL Mean Corpuscular Hemoglobin 29.9 PG Mean Corpuscular Hemoglobin Concent 34.7 % Red Cell Distribution Width 14.0 % Platelet Count 171 TH/MM3 Mean Platelet Volume 8.3 FL Neutrophils (%) (Auto) 51.8 % Lymphocytes (%) (Auto) 34.6 % Monocytes (%) (Auto) 7.6 % Eosinophils (%) (Auto) 5.3 % Basophils (%) (Auto) 0.7 % Neutrophils # (Auto) 3.0 TH/MM3 Lymphocytes # (Auto) 2.0 TH/MM3 Monocytes # (Auto) 0.4 TH/MM3 Eosinophils # (Auto) 0.3 TH/MM3 Basophils # (Auto) 0.0 TH/MM3 CBC Comment DIFF FINAL Differential Comment Prothrombin Time 10.0 SEC Prothromb Time International Ratio 1.0 RATIO Activated Partial Thromboplast Time 23.3 SEC Blood Urea Nitrogen 23 MG/DL Creatinine 1.61 MG/DL Random Glucose 100 MG/DL Total Protein 6.9 GM/DL Albumin 4.0 GM/DL Calcium Level 9.4 MG/DL Magnesium Level 2.4 MG/DL Alkaline Phosphatase 88 U/L Aspartate Amino Transf (AST/SGOT) 13 U/L Alanine Aminotransferase (ALT/SGPT) 17 U/L Total Bilirubin 0.3 MG/DL Direct Bilirubin 0.1 MG/DL Sodium Level 146 MEQ/L Potassium Level 3.4 MEQ/L Chloride Level 110 MEQ/L Carbon Dioxide Level 27.3 MEQ/L Anion Gap 9 MEQ/L Estimat Glomerular Filtration Rate 33 ML/MIN Indirect Bilirubin 0.2 MG/DL Total Creatine Kinase 33 U/L Troponin I LESS THAN 0.02 NG/ML Lipase 121 U/L Urine Color YELLOW Urine Turbidity HAZY Urine pH 5.5 Urine Specific [place] 1.017 Urine Protein TRACE mg/dL Urine Glucose (UA) NEG mg/dL Urine Ketones NEG mg/dL Urine Occult Blood NEG Urine Nitrite NEG Urine Bilirubin NEG Urine Urobilinogen LESS THAN 2.0 MG/DL Urine Leukocyte Esterase LARGE Urine RBC 2 /hpf Urine WBC 58 /hpf Urine Squamous Epithelial Cells 1 /hpf Urine Amorphous Sediment RARE Urine Bacteria RARE /hpf Urine Hyaline Casts 12 /lpf Urine Mucus FEW /lpf Microscopic Urinalysis Comment CULTURE INDICATED MDM Medical Decision Making Medical Screen Exam Complete: Yes Emergency Medical Condition: Yes Medical Record Reviewed: Yes Interpretation(s) CT abdomen/pelvis - CONCLUSION: 1. No renal calculi identified. No evidence for obstructive uropathy. Multiple calcified gallstones without biliary ductal dilatation. Chest x-ray - no acute disease Differential Diagnosis Pyelonephritis versus nephrolithiasis versus UTI versus chest wall pain versus anxiety versus ACS versus diverticulitis Narrative Course 57-year-old female presents to the emergency department for evaluation of left flank pain that radiates to the left lower quadrant/groin as well as left-sided chest pain and diarrhea. EKG shows sinus rhythm, heart rate 61, no acute ST changes. CBC, CMP, CK, troponin, lipase, magnesium, PTT, PTT/INR, UA, stool for C. difficile are ordered and pending. Chest x-ray and CT abdomen/pelvis without contrast are ordered and pending. Patient is given normal saline 1 L IV bolus, Toradol 30 iv, Zofran 4 mg IV. CBC shows no acute abnormalities. CMP shows elevated BUN 23, creatinine 1.61, last creatinine was 0.91 on 12/08/17. CK is 33. Troponin is less than 0.02. Lipase is 121. Magnesium is 2.4. Coags show no acute abnormalities. UA shows large leukocyte esterase, 58 WBC. Chest x-ray shows no acute disease. CT abdomen/pelvis shows No renal calculi identified. No evidence for obstructive uropathy. Multiple calcified gallstones without biliary ductal dilatation. Patient is given 2nd liter IV NS bolus. Patient is given Rocephin 1 gm IV. She states she has been on cipro for 14 days without improvement. My attending physician, Dr. Villanueva, examined patient and recommends admission for UTI, failed outpatient treatment, dehydration. Dr. Harris accepted admission. Diagnosis Primary Impression: Urinary tract infection Qualified Codes: N30.01 - Acute cystitis with hematuria Additional Impression: Dehydration Admitting Information Admitting Physician Requests: Admit Minoo Mckeon Jan 11, 2018 18:44
[2018-01-11 18:53] LABS: BASOPHIL % 0.7 % (0.0-2.0); EOSINOPHIL # 0.3 TH/MM3 (0-0.4); EOSINOPHIL % 5.3 % (0.0-4.0); HEMOGLOBIN 13.2 GM/DL (11.6-15.3); LYMPH % 34.6 % (9.0-44.0); MEAN CELL VOLUME 86.3 FL (80.0-100.0); MEAN CORPUSCULAR HEMOGLOBIN 29.9 PG (27.0-34.0); MEAN CORPUSCULAR HGB CONC 34.7 % (32.0-36.0); MEAN PLATELET VOLUME 8.3 FL (7.0-11.0); MONO % 7.6 % (0.0-8.0); MONOCYTE # 0.4 TH/MM3 (0-0.9); NEUT % 51.8 % (16.0-70.0); PLATELET COUNT 171 TH/MM3 (150-450); WHITE BLOOD COUNT 5.9 TH/MM3 (4.0-11.0)
[2018-01-11 19:11] LABS: ALT (GPT) 17 U/L (10-53); AST (GOT) 13 U/L (15-37); BICARBONATE 27.3 MEQ/L (21.0-32.0); BLOOD UREA NITROGEN 23 MG/DL (7-18); CALCIUM 9.4 MG/DL (8.5-10.1); CHLORIDE 110 MEQ/L (98-107); CREATININE 1.61 MG/DL (0.50-1.00); DIRECT BILIRUBIN ADULT 0.1 MG/DL (0.0-0.2); GLOMERULAR FILTRATION RATE 33 ML/MIN (>89); GLUCOSE,RANDOM 100 MG/DL (74-106); MAGNESIUM 2.4 MG/DL (1.5-2.5); SODIUM (NA) 146 MEQ/L (136-145)
[2018-01-11 19:14] LABS: ALKALINE PHOSPHATASE 88 U/L (45-117); INDIRECT BILIRUBIN 0.2 MG/DL (0.0-0.8); TOTAL BILIRUBIN ADULT 0.3 MG/DL (0.2-1.0); TOTAL PROTEIN 6.9 GM/DL (6.4-8.2); TROPONIN I LESS THAN 0.02 NG/ML (0.02-0.05)
[2018-01-11 19:25] LABS: AMORPHOUS SEDIMENT, URINE RARE; BACTERIA, URINE RARE /hpf; BILIRUBIN, URINE NEG (NEG); BLOOD, URINE NEG (NEG); GLUCOSE,URINE NEG (NEG); HYALINE CAST, URINE 12 /lpf (RARE); KETONE, URINE NEG (NEG); MUCUS URINE FEW /lpf (OCC); NITRITE,URINE NEG (NEG); PH, URINE 5.5 (5.0-8.5); SQUAMOUS EPITHELIAL CELL URINE 1 /hpf (0-5); URINE COLOR YELLOW (YELLW/STRAW); URINE LEUKOCYTE ESTERASE LARGE (NEG)
--- NOTE | 2018-01-11 19:46 | RADRPT ---
EXAM DATE/TIME: 01/11/2018 19:12 [facility] COMPARISON: No previous studies available for comparison. INDICATIONS : Left sided flank pain. ORAL CONTRAST: No oral contrast ingested. RADIATION DOSE: 8.28 CTDIvol (mGy) MEDICAL HISTORY : Gastroesophageal reflux disease. SURGICAL HISTORY : Appendectomy. Hysterectomy. ENCOUNTER: Initial ACUITY: 1 day PAIN SCALE: 5/10 LOCATION: abdomen TECHNIQUE: Volumetric scanning of the abdomen and pelvis was performed. Using automated exposure control and ad justment of the mA and/or kV according to patient size, radiation dose was kept as low as reasonably achievable to obtain optimal diagnostic quality images. DICOM format image data is available electro nically for review and comparison. FINDINGS: Small bilateral pleural effusions. No acute findings in the liver, spleen, adrenals, kidneys or pancr eas. Multiple calcified gallstones within gallbladder. No biliary ductal dilatation. CONCLUSION: 1. No renal calculi identified. No evidence for obstructive uropathy. Multiple calcified gallstones w ithout biliary ductal dilatation. Oj Diaz MD on January 11, 2018 at 19:42 Board Certified Radiologist. This report was verified electronically.
[2018-01-11 20:37] VITALS: BP 108/62; PULSE 64; RESP 16; O2SAT 98
[2018-01-11] MEDS ORDERED: cefTRIAXone INJ 1,000 MG in SODIUM CHLORIDE 0.9% INJ 100 ML IV ONE (21:00)
--- NOTE | 2018-01-11 21:14 | PD ---
Physical Exam Narrative I, Dr. Villanueva, have reviewed the advance practice practitioner's documentation and am in agreement, met with the patient face to face, made the diagnosis, and the medical decision making was done by me. *My assessment and Findings: UTI that failed outpatient treatment vs. colitis vs. nephrolithiasis 57yo F with frequent UTIs here with c/o left abdominal pain and generalized weakness. Labs reviewed, no leukocytosis. BUN/creatinine elevated at 23/1.61, this is more than her baseline which is normal. UA showed large leukocyte. WBC 58. Pt said she has been on 2 weeks of cipro already and her urologist is Dr. Goldberg. CXR negative. CT a/p showed no renal calculi. No evidence for obstructive uropathy. Multiple gallstones. Pt reevaluated at bedside after toradol, zofran and ceftriaxone. Pt is still feeling very bad and lives by herself and feels too weak to care for herself. She did fail outpatient treatment and still have a bad UTI with increased creatinine so will observe for UTI and KEZIA. Data Data Last Documented VS Vital Signs Date Time Temp Pulse Resp B/P (MAP) Pulse Ox O2 Delivery O2 Flow Rate FiO2 01/11/18 20:37 64 16 108/62 (77) 98 Room Air 01/11/18 16:15 97.5 Orders Orders Electrocardiogram (01/11/18 16:20) Complete Blood Count With Diff (01/11/18 16:20) Basic Metabolic Panel (Bmp) (01/11/18 16:20) Ckmb (Isoenzyme) Profile (01/11/18 16:20) Troponin I (01/11/18 16:20) Urinalysis - C+S If Indicated (01/11/18 16:20) Chest, Pa & Lat (01/11/18 16:20) Act Partial Throm Time (Ptt) (01/11/18 18:30) Prothrombin Time / Inr (Pt) (01/11/18 18:30) C Diff Toxin Pcr (01/11/18 18:30) Sodium Chlor 0.9% 1000 Ml Inj (Ns 1000 M (01/11/18 18:30) Ondansetron Inj (Zofran Inj) (01/11/18 18:30) Ketorolac Inj (Toradol Inj) (01/11/18 18:30) Ct Abd/Pel W/O Iv Contrast (01/11/18 ) Hepatic Functional Panel (01/11/18 16:20) Lipase (01/11/18 16:20) Magnesium (Mg) (01/11/18 16:20) Urine Culture (01/11/18 19:00) Sodium Chlor 0.9% 1000 Ml Inj (Ns 1000 M (01/11/18 21:00) Ceftriaxone Inj (Rocephin Inj) (01/11/18 21:00) Labs Laboratory Tests Test 01/11/18 18:00 01/11/18 19:00 White Blood Count 5.9 TH/MM3 Red Blood Count 4.40 MIL/MM3 Hemoglobin 13.2 GM/DL Hematocrit 38.0 % Mean Corpuscular Volume 86.3 FL Mean Corpuscular Hemoglobin 29.9 PG Mean Corpuscular Hemoglobin Concent 34.7 % Red Cell Distribution Width 14.0 % Platelet Count 171 TH/MM3 Mean Platelet Volume 8.3 FL Neutrophils (%) (Auto) 51.8 % Lymphocytes (%) (Auto) 34.6 % Monocytes (%) (Auto) 7.6 % Eosinophils (%) (Auto) 5.3 % Basophils (%) (Auto) 0.7 % Neutrophils # (Auto) 3.0 TH/MM3 Lymphocytes # (Auto) 2.0 TH/MM3 Monocytes # (Auto) 0.4 TH/MM3 Eosinophils # (Auto) 0.3 TH/MM3 Basophils # (Auto) 0.0 TH/MM3 CBC Comment DIFF FINAL Differential Comment Prothrombin Time 10.0 SEC Prothromb Time International Ratio 1.0 RATIO Activated Partial Thromboplast Time 23.3 SEC Blood Urea Nitrogen 23 MG/DL Creatinine 1.61 MG/DL Random Glucose 100 MG/DL Total Protein 6.9 GM/DL Albumin 4.0 GM/DL Calcium Level 9.4 MG/DL Magnesium Level 2.4 MG/DL Alkaline Phosphatase 88 U/L Aspartate Amino Transf (AST/SGOT) 13 U/L Alanine Aminotransferase (ALT/SGPT) 17 U/L Total Bilirubin 0.3 MG/DL Direct Bilirubin 0.1 MG/DL Sodium Level 146 MEQ/L Potassium Level 3.4 MEQ/L Chloride Level 110 MEQ/L Carbon Dioxide Level 27.3 MEQ/L Anion Gap 9 MEQ/L Estimat Glomerular Filtration Rate 33 ML/MIN Indirect Bilirubin 0.2 MG/DL Total Creatine Kinase 33 U/L Troponin I LESS THAN 0.02 NG/ML Lipase 121 U/L Urine Color YELLOW Urine Turbidity HAZY Urine pH 5.5 Urine Specific [place] 1.017 Urine Protein TRACE mg/dL Urine Glucose (UA) NEG mg/dL Urine Ketones NEG mg/dL Urine Occult Blood NEG Urine Nitrite NEG Urine Bilirubin NEG Urine Urobilinogen LESS THAN 2.0 MG/DL Urine Leukocyte Esterase LARGE Urine RBC 2 /hpf Urine WBC 58 /hpf Urine Squamous Epithelial Cells 1 /hpf Urine Amorphous Sediment RARE Urine Bacteria RARE /hpf Urine Hyaline Casts 12 /lpf Urine Mucus FEW /lpf Microscopic Urinalysis Comment CULTURE INDICATED MDM Supervised Visit with ARSLAN: Yes Diagnosis Primary Impression: UTI (urinary tract infection) Qualified Codes: N39.0 - Urinary tract infection, site not specified Additional Impression: KEZIA (acute kidney injury) Admitting Information Admitting Physician Requests: Observation Malorie Villanueva DO Jan 11, 2018 21:14
--- NOTE | 2018-01-11 21:36 | HHI.HP ---
HPI Service [facility] Primary Care Physician Behzad Mcbride, DO Admission Diagnosis UTI, failed outpatient therapy; dehydration Diagnoses: (1) UTI (urinary tract infection) Diagnosis: Principal (2) Failure of outpatient treatment Diagnosis: Principal (3) KEZIA (acute kidney injury) Diagnosis: Principal Travel History International Travel<30 Days: No Contact w/Intl Traveler <30 Da: No Traveled to Known Affected Are: No History of Present Illness This is a 57-year-old female with PMH of Anxiety, Depression, HTN, COPD, GERD, h /o Renal Stones and Recurrent UTI who presented to the ER w/ complaints of left flank pain in addition to nausea and vomiting. States pain is cramping, severe , 10/10, non-radiating, worse w/ movement, associated w/ nausea/vomiting in addition to few episodes of diarrhea. Denies fever or chills. Has been on Cipro x14 days for UTI by PCP. On arrival, BP 113/56, HR 79, O2 sat 96% on RA, Afebrile. CBC unremarkable. Creatinine 1.61, previously 0.91 on 12/08/17. Troponin negative. INR 1.0. UA positive for UTI. CXR with no acute findings. CT Abd/Pelvis w/ no renal stone identified, no evidence of obstructive uropathy, multiple calcified gallstones with no biliary ductal dilatation. S/p Rocephin, Toradol and Zofran in ER. Review of Systems Except as stated in HPI: all other systems reviewed are Neg ROS: 14 point review of systems otherwise negative. Past Family Social History Past Medical History PMH: Anxiety, Depression, HTN, COPD, GERD, h/o Renal Stones and Recurrent UTI Past Surgical History PAST SURGICAL HISTORY: Appendectomy, , D&C, Hysterectomy, Breast Reduction, Renal Stent Allergies: Coded Allergies: No Known Allergies (Verified Allergy, Unknown, 01/11/18) Family History PAST FAMILY HISTORY: Reviewed. No h/o DM or CAD Social History PAST SOCIAL HISTORY: Negative for alcohol, tobacco or drugs. Physical Exam Vital Signs Vital Signs Date Time Temp Pulse Resp B/P (MAP) Pulse Ox O2 Delivery O2 Flow Rate FiO2 01/11/18 20:37 64 16 108/62 (77) 98 Room Air 01/11/18 18:22 68 12 137/83 (101) 98 01/11/18 16:15 97.5 79 18 113/56 (75) 96 Physical Exam PE: GENERAL: Middle-aged white female in no acute distress. HEENT: PERRLA, EOMI. No scleral icterus or conjunctival pallor. No lid lag or facial droop. CARDIOVASCULAR: Regular rate and rhythm. No obvious murmurs to auscultation. No chest tenderness to palpation. RESPIRATORY: No obvious rhonchi or wheezing. Clear to auscultation. Breath sounds equal bilaterally. GASTROINTESTINAL: Abdomen soft, left flank tenderness to palpation, nondistended. BS normal. MUSCULOSKELETAL: Extremities without clubbing, cyanosis, or edema. No obvious deformities. NEUROLOGICAL: Awake, alert and oriented x4. No focal neurologic deficits. Moving both upper and lower extremities spontaneously. Laboratory Laboratory Tests Test 01/11/18 18:00 01/11/18 19:00 White Blood Count 5.9 Red Blood Count 4.40 Hemoglobin 13.2 Hematocrit 38.0 Mean Corpuscular Volume 86.3 Mean Corpuscular Hemoglobin 29.9 Mean Corpuscular Hemoglobin Concent 34.7 Red Cell Distribution Width 14.0 Platelet Count 171 Mean Platelet Volume 8.3 Neutrophils (%) (Auto) 51.8 Lymphocytes (%) (Auto) 34.6 Monocytes (%) (Auto) 7.6 Eosinophils (%) (Auto) 5.3 Basophils (%) (Auto) 0.7 Neutrophils # (Auto) 3.0 Lymphocytes # (Auto) 2.0 Monocytes # (Auto) 0.4 Eosinophils # (Auto) 0.3 Basophils # (Auto) 0.0 CBC Comment DIFF FINAL Differential Comment Prothrombin Time 10.0 Prothromb Time International Ratio 1.0 Activated Partial Thromboplast Time 23.3 Blood Urea Nitrogen 23 Creatinine 1.61 Random Glucose 100 Total Protein 6.9 Albumin 4.0 Calcium Level 9.4 Magnesium Level 2.4 Alkaline Phosphatase 88 Aspartate Amino Transf (AST/SGOT) 13 Alanine Aminotransferase (ALT/SGPT) 17 Total Bilirubin 0.3 Direct Bilirubin 0.1 Sodium Level 146 Potassium Level 3.4 Chloride Level 110 Carbon Dioxide Level 27.3 Anion Gap 9 Estimat Glomerular Filtration Rate 33 Indirect Bilirubin 0.2 Total Creatine Kinase 33 Troponin I LESS THAN 0.02 Lipase 121 Urine Color YELLOW Urine Turbidity HAZY Urine pH 5.5 Urine Specific [place] 1.017 Urine Protein TRACE Urine Glucose (UA) NEG Urine Ketones NEG Urine Occult Blood NEG Urine Nitrite NEG Urine Bilirubin NEG Urine Urobilinogen LESS THAN 2.0 Urine Leukocyte Esterase LARGE Urine RBC 2 Urine WBC 58 Urine Squamous Epithelial Cells 1 Urine Amorphous Sediment RARE Urine Bacteria RARE Urine Hyaline Casts 12 Urine Mucus FEW Microscopic Urinalysis Comment CULTURE INDICATED Date/Time Source Procedure Growth Status 01/11/18 19:00 Urine Clean Catch Urine Culture Pending Received Result Diagram: 01/11/18 1800 01/11/18 1800 Caprindanika VTE Risk Assessment Caprini VTE Risk Assessment: No/Low Risk (score <= 1) Caprini Risk Assessment Model Point Value = 1 Point Value = 2 Point Value = 3 Point Value = 5 Age 41-60 Minor surgery BMI > 25 kg/m2 Swollen legs Varicose veins or History of unexplained or recurrent spontaneous Oral contraceptives or hormone replacement Sepsis (< 1 month) Serious lung disease, including pneumonia (< 1 month) Abnormal pulmonary function Acute myocardial infarction Congestive heart failure (< 1 month) History of inflammatory bowel disease Medical patient at bed rest Age 61-74 Arthroscopic surgery Major open surgery (> 45 min) Laparoscopic surgery (> 45 min) Malignancy Confined to bed (> 72 hours) Immobilizing plaster cast Central venous access Age >= 75 History of VTE Family history of VTE Factor V Leiden Prothrombin [id number] Lupus anticoagulant Anticardiolipin antibodies Elevated serum homocysteine Heparin-induced thrombocytopenia Other congenital or acquired thrombophilia Stroke (< 1 month) Elective arthroplasty Hip, pelvis, or leg fracture Acute spinal cord injury (< 1 month) Prophylaxis Regimen Total Risk Factor Score Risk Level Prophylaxis Regimen 0-1 Low Early ambulation 2 Moderate Order ONE of the following: *Sequential Compression Device (SCD) *Heparin 5000 units SQ BID 3-4 Higher Order ONE of the following medications: *Heparin 5000 units SQ TID *Enoxaparin/Lovenox 40 mg SQ daily (WT < 150 kg, CrCl > 30 mL/min) *Enoxaparin/Lovenox 30 mg SQ daily (WT < 150 kg, CrCl > 10-29 mL/min) *Enoxaparin/Lovenox 30 mg SQ BID (WT < 150 kg, CrCl > 30 mL/min) AND/OR *Sequential Compression Device (SCD) 5 or more Highest Order ONE of the following medications: *Heparin 5000 units SQ TID (Preferred with Epidurals) *Enoxaparin/Lovenox 40 mg SQ daily (WT < 150 kg, CrCl > 30 mL/min) *Enoxaparin/Lovenox 30 mg SQ daily (WT < 150 kg, CrCl > 10-29 mL/min) *Enoxaparin/Lovenox 30 mg SQ BID (WT < 150 kg, CrCl > 30 mL/min) AND *Sequential Compression Device (SCD) Assessment and Plan Problem List: (1) UTI (urinary tract infection) ICD Code: N39.0 - Urinary tract infection, site not specified Status: Acute (2) Failure of outpatient treatment ICD Code: Z78.9 - Other specified health status (3) KEZIA (acute kidney injury) ICD Code: N17.9 - Acute kidney failure, unspecified Status: Acute Assessment and Plan A/P: 1. UTI: Recurrent. U/a w/ UTI, s/p Rocephin IV in ER, will continue w/ IV Abx , IVF for hydration, follow up urine cultures. CT Abd/Pelvis w/ no stone/ obstructive uropathy, images reviewed by me. 2. Failed Outpatient Tx: On Cipro [id number] as outpatient w/ persistent UTI, review of previous cultures 11/11/17 +Pseudomonas, [place] sensitive and 12/08/17 + Naomi, will await culture results. 3. KEZIA: Creatinine 1.61, previously 0.91 on 12/08/17. IVF for hydration, repeat labs in a.m. 4. DVT Prophylaxis: SCD/teds. 5. 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 6. Case discussed at length with ER physician, lab/records/imaging reviewed by me. Physician Certification 2 Midnight Certification Type: Admission for Inpatient Services Order for Inpatient Services The services are ordered in accordance with Medicare regulations or non- Medicare payer requirements, as applicable. In the case of services not specified as inpatient-only, they are appropriately provided as inpatient services in accordance with the 2-midnight benchmark. Estimated LOS (days): 2 days is the estimated time the patient will need to remain in the hospital, assuming treatment plan goals are met and no additional complications. Post-Hospital Plan: Not yet determined Problem Qualifiers (1) UTI (urinary tract infection): Qualified Codes: N39.0 - Urinary tract infection, site not specified Deb Harris MD Jan 11, 2018 21:36
[2018-01-11] MEDS ORDERED: LACTULOSE SYRUP 20 GM/30 ML CUP PO PRN (21:45)
[2018-01-11] MEDS ORDERED: SENNOSIDES 8.6 MG TAB PO PRN (21:45)
[2018-01-11] MEDS ORDERED: SODIUM CHLORIDE 0.9% FLUSH 10 ML FLUSH IV FLUSH PRN (21:45)
[2018-01-11] MEDS ORDERED: MAGNESIUM HYDROXIDE SUSP 30 ML CUP PO PRN (21:45)
[2018-01-11] MEDS ORDERED: ONDANSETRON HCL 4 MG/2 ML VIAL IVP PRN (21:45)
[2018-01-11] MEDS ORDERED: ACETAMINOPHEN 325 MG TAB PO PRN (21:45)
[2018-01-11] MEDS ORDERED: BISACODYL 10 MG SUPP RECTAL PRN (21:45)
--- NOTE | 2018-01-11 22:16 | EKG ---
Date Performed: 01/11/2018 Time Performed: 16:28:01 PTAGE: 57 years EKG: Sinus rhythm NORMAL ECG No significant change from prior electrocardiogram. PREVIOUS TRACING : 12/08/2017 21.02 DOCTOR: Bam Bain Interpretating Date/Time 01/11/2018 22:15:12
[2018-01-11 22:38] VITALS: BP 109/60; PULSE 64; RESP 18; TEMP 96; O2SAT 96
[2018-01-11] MEDS: clonazePAM 0.5 MG TAB PO SCH (22:47)
[2018-01-11] MEDS: traZODone HCL 50 MG TAB PO SCH (22:47)
[2018-01-11] MEDS: SODIUM CHLOR 0.9% 1000 ML INJ 1,000 ML IV SCH (22:48)
[2018-01-11] MEDS: MORPHINE SULFATE 2 MG/ML INJ IV PUSH PRN (22:51)
[2018-01-12 04:10] VITALS: BP 98/60; PULSE 67; RESP 18; TEMP 96.4; O2SAT 98
[2018-01-12] MEDS: SODIUM CHLOR 0.9% 1000 ML INJ 1,000 ML IV SCH ×2 (06:32→20:02)
[2018-01-12] MEDS: MORPHINE SULFATE 2 MG/ML INJ IV PUSH PRN ×3 (06:36→19:57)
[2018-01-12 07:03] LABS: AUTOMATED NEUTROPHIL # 2.3 TH/MM3 (1.8-7.7); BASOPHIL # 0.1 TH/MM3 (0-0.2); BASOPHIL % 1.1 % (0.0-2.0); EOSINOPHIL # 0.3 TH/MM3 (0-0.4); EOSINOPHIL % 5.9 % (0.0-4.0); HEMATOCRIT 34.4 % (35.0-46.0); HEMOGLOBIN 12.2 GM/DL (11.6-15.3); LYMPHOCYTE # 1.9 TH/MM3 (1.0-4.8); MEAN CELL VOLUME 86.2 FL (80.0-100.0); MEAN CORPUSCULAR HEMOGLOBIN 30.5 PG (27.0-34.0); MEAN CORPUSCULAR HGB CONC 35.4 % (32.0-36.0); MEAN PLATELET VOLUME 8.3 FL (7.0-11.0); MONO % 7.4 % (0.0-8.0); MONOCYTE # 0.4 TH/MM3 (0-0.9); NEUT % 47.6 % (16.0-70.0); PLATELET COUNT 150 TH/MM3 (150-450); RED BLOOD COUNT 3.99 MIL/MM3 (4.00-5.30); RED CELL DISTRIBUTION WIDTH 13.5 % (11.6-17.2); WHITE BLOOD COUNT 4.9 TH/MM3 (4.0-11.0)
[2018-01-12 07:48] VITALS: BP 104/60; PULSE 56; RESP 18; TEMP 97.7; O2SAT 98
[2018-01-12 07:56] LABS: ALBUMIN 3.2 GM/DL (3.4-5.0); ALKALINE PHOSPHATASE 74 U/L (45-117); ALT (GPT) 14 U/L (10-53); AST (GOT) 9 U/L (15-37); BICARBONATE 23.1 MEQ/L (21.0-32.0); BLOOD UREA NITROGEN 18 MG/DL (7-18); CALCIUM 8.3 MG/DL (8.5-10.1); CHLORIDE 116 MEQ/L (98-107); CREATININE 1.31 MG/DL (0.50-1.00); GLOMERULAR FILTRATION RATE 42 ML/MIN (>89); GLUCOSE,RANDOM 92 MG/DL (74-106); SODIUM (NA) 148 MEQ/L (136-145); TOTAL BILIRUBIN ADULT 0.4 MG/DL (0.2-1.0); TOTAL PROTEIN 5.7 GM/DL (6.4-8.2)
[2018-01-12] MEDS: SODIUM CHLORIDE 0.9% FLUSH 10 ML FLUSH IV FLUSH SCH ×2 (08:00→20:02)
[2018-01-12] MEDS ORDERED: POTASSIUM CHLORIDE 20 MEQ CONTROLLED RELEASE TAB PO ONE (08:15)
[2018-01-12] MEDS: BACLOFEN 10 MG TAB PO SCH ×3 (08:19→18:11)
[2018-01-12] MEDS: clonazePAM 0.5 MG TAB PO SCH ×2 (08:19→20:04)
[2018-01-12] MEDS: TAMSULOSIN HCL 0.4 MG CAP PO SCH (08:19)
[2018-01-12] MEDS: DOCUSATE SODIUM 50 MG/SENNA 8.6 MG TAB PO SCH ×2 (08:21→20:04)
[2018-01-12] MEDS: ACETAMINOPHEN/HYDROcodone 325 MG/5 MG TAB PO PRN ×2 (08:21→15:00)
[2018-01-12] MEDS: QUEtiapine FUMARATE 200 MG TAB PO SCH ×2 (08:27→20:04)
[2018-01-12] MEDS ORDERED: QUETIAPINE 400 MG PO SCH (09:00)
[2018-01-12] MEDS ORDERED: INFLUENZA VIRUS VACCINE (QUADRIVALENT) 0.5 ML SYR IM ONE (10:00)
[2018-01-12] MEDS ORDERED: PNEUMOCOCCAL POLYVALENT INJ 25 MCG/0.5 ML SYR IM ONE (10:00)
--- NOTE | 2018-01-12 10:45 | HHI.PR ---
Subjective Remarks f/u UTI. Complains of being woozy. Denies nausea, vomiting, abdominal pain and diarrhea discussed with nursing Objective Vitals Vital Signs Date Time Temp Pulse Resp B/P (MAP) Pulse Ox O2 Delivery O2 Flow Rate FiO2 01/12/18 09:21 18 01/12/18 07:48 97.7 56 18 104/60 (75) 98 01/12/18 04:10 96.4 67 18 98/60 (73) 98 01/11/18 22:38 96.0 64 18 109/60 (76) 96 01/11/18 22:35 01/11/18 20:37 64 16 108/62 (77) 98 Room Air 01/11/18 18:22 68 12 137/83 (101) 98 01/11/18 16:15 97.5 79 18 113/56 (75) 96 I/O 01/11/18 01/11/18 01/11/18 01/12/18 01/12/18 01/12/18 07:00 15:00 23:00 07:00 15:00 23:00 Intake Total 1100 ml Balance 1100 ml Intake IV Total 1100 ml Result Diagram: 01/12/18 0645 01/12/18 0625 Imaging Last Impressions Chest X-Ray 01/11/18 1620 Signed Impressions: Service Date/Time: Thursday, January 11, 2018 16:41 - CONCLUSION: No acute cardiopulmonary disease identified. Bimal Albert MD Abdomen/Pelvis CT 01/11/18 0000 Signed Impressions: Service Date/Time: Thursday, January 11, 2018 19:12 - CONCLUSION: 1. No renal calculi identified. No evidence for obstructive uropathy. Multiple calcified gallstones without biliary ductal dilatation. Oj Diaz MD Objective Remarks GENERAL: Middle-aged white female in no acute distress. HEENT: PERRLA, EOMI. No scleral icterus or conjunctival pallor. No lid lag or facial droop. CARDIOVASCULAR: Regular rate and rhythm. No obvious murmurs to auscultation. No chest tenderness to palpation. RESPIRATORY: No obvious rhonchi or wheezing. Clear to auscultation. Breath sounds equal bilaterally. GASTROINTESTINAL: Abdomen soft, left flank tenderness to palpation, nondistended. BS normal. MUSCULOSKELETAL: Extremities without clubbing, cyanosis, or edema. No obvious deformities. Left CVA tenderness NEUROLOGICAL: Awake, alert and oriented x4. No focal neurologic deficits. Moving both upper and lower extremities spontaneously. Procedures none A/P Problem List: (1) UTI (urinary tract infection) ICD Code: N39.0 - Urinary tract infection, site not specified Status: Acute (2) Failure of outpatient treatment ICD Code: Z78.9 - Other specified health status (3) KEZIA (acute kidney injury) ICD Code: N17.9 - Acute kidney failure, unspecified Status: Acute Assessment and Plan 1. UTI: Recurrent. U/a w/ UTI, s/p Rocephin IV in ER, will continue w/ IV Abx , IVF for hydration, follow up urine cultures. CT Abd/Pelvis w/ no stone/ obstructive uropathy, images reviewed by me. Patient has left pyelonephritis 2. Failed Outpatient Tx: On Cipro [id number] as outpatient w/ persistent UTI, review of previous cultures 11/11/17 +Pseudomonas, [place] sensitive and 12/08/17 + Naomi, will await culture results. 3. KEZIA: Creatinine 1.61, previously 0.91 on 12/08/17. IVF for hydration, repeat labs in a.m. improving 4. Diarrhea with a history of C. difficile. C. difficile toxin pending. Lactinex DVT Prophylaxis: SCD/teds. SQ Heparin Problem Qualifiers (1) UTI (urinary tract infection): Qualified Codes: N39.0 - Urinary tract infection, site not specified Nitesh Urban MD Jan 12, 2018 10:45
[2018-01-12 11:00] VITALS: BP 97/65; PULSE 76; RESP 18; TEMP 97.4; O2SAT 94
[2018-01-12 15:54] VITALS: BP 99/56; PULSE 78; RESP 18; TEMP 97.9; O2SAT 97
[2018-01-12] MEDS: LACTOBACILLUS ACIDOPHILUS TAB PO SCH (18:11)
[2018-01-12 20:02] VITALS: BP 107/60; PULSE 83; RESP 17; TEMP 97.9; O2SAT 97
[2018-01-12] MEDS: cefTRIAXone INJ 1,000 MG in SODIUM CHLORIDE 0.9% INJ 100 ML IV SCH (20:02)
[2018-01-12] MEDS: HEPARIN SODIUM - SQ 10,000 UNITS/ML VIAL SQ SCH (20:03)
[2018-01-12] MEDS: traZODone HCL 50 MG TAB PO SCH (20:04)
[2018-01-13 01:56] VITALS: BP 135/72; PULSE 80; RESP 16; TEMP 97.7; O2SAT 97
[2018-01-13] MEDS: SODIUM CHLOR 0.9% 1000 ML INJ 1,000 ML IV SCH ×3 (03:58→23:33)
[2018-01-13 05:02] VITALS: BP 119/75; PULSE 70; RESP 16; TEMP 97.7; O2SAT 98
[2018-01-13 08:40] VITALS: BP 128/79; PULSE 66; RESP 16; TEMP 97.8; O2SAT 96
[2018-01-13] MEDS: SODIUM CHLORIDE 0.9% FLUSH 10 ML FLUSH IV FLUSH SCH ×2 (09:00→20:55)
[2018-01-13] MEDS: clonazePAM 0.5 MG TAB PO SCH ×2 (09:09→20:54)
[2018-01-13] MEDS: HEPARIN SODIUM - SQ 10,000 UNITS/ML VIAL SQ SCH ×2 (09:09→20:53)
[2018-01-13] MEDS: QUEtiapine FUMARATE 200 MG TAB PO SCH ×2 (09:09→20:54)
[2018-01-13] MEDS: DOCUSATE SODIUM 50 MG/SENNA 8.6 MG TAB PO SCH ×2 (09:09→20:54)
[2018-01-13] MEDS: TAMSULOSIN HCL 0.4 MG CAP PO SCH (09:09)
[2018-01-13] MEDS: BACLOFEN 10 MG TAB PO SCH ×3 (09:09→19:06)
[2018-01-13] MEDS: LACTOBACILLUS ACIDOPHILUS TAB PO SCH ×3 (09:09→19:06)
[2018-01-13 09:10] LABS: BICARBONATE 23.6 MEQ/L (21.0-32.0); CALCIUM 8.5 MG/DL (8.5-10.1); MAGNESIUM 1.8 MG/DL (1.5-2.5)
[2018-01-13] MEDS: MORPHINE SULFATE 2 MG/ML INJ IV PUSH PRN ×2 (09:40→16:19)
--- NOTE | 2018-01-13 10:32 | HHI.PR ---
Subjective Remarks She is in bed. Says she still has some pain in her left flank radiating to the groin. No fever or chills overnight. Urinating well. No blood in urine. No nausea no vomiting no diarrhea or constipation. She is able to eat. Objective Vitals Vital Signs Date Time Temp Pulse Resp B/P (MAP) Pulse Ox O2 Delivery O2 Flow Rate FiO2 01/13/18 08:40 97.8 66 16 128/79 (95) 96 01/13/18 05:02 97.7 70 16 119/75 (90) 98 01/13/18 01:56 97.7 80 16 135/72 (93) 97 01/12/18 20:02 97.9 83 17 107/60 (76) 97 01/12/18 16:00 18 01/12/18 15:54 97.9 78 18 99/56 (70) 97 01/12/18 14:09 18 01/12/18 11:00 97.4 76 18 97/65 (76) 94 I/O 01/12/18 01/12/18 01/12/18 01/13/18 01/13/18 01/13/18 07:00 15:00 23:00 07:00 15:00 23:00 Intake Total 1200 ml Balance 1200 ml Intake Oral 1200 ml # Voids 2 Result Diagram: 01/12/18 0645 01/13/18 0835 Imaging Last Impressions Chest X-Ray 01/11/18 1620 Signed Impressions: Service Date/Time: Thursday, January 11, 2018 16:41 - CONCLUSION: No acute cardiopulmonary disease identified. Bimal Albert MD Abdomen/Pelvis CT 01/11/18 0000 Signed Impressions: Service Date/Time: Thursday, January 11, 2018 19:12 - CONCLUSION: 1. No renal calculi identified. No evidence for obstructive uropathy. Multiple calcified gallstones without biliary ductal dilatation. Oj Diaz MD Objective Remarks GENERAL: Middle-aged white female in no acute distress. HEENT: PERRLA, EOMI. No scleral icterus or conjunctival pallor. No lid lag or facial droop. CARDIOVASCULAR: Regular rate and rhythm. No obvious murmurs to auscultation. No chest tenderness to palpation. RESPIRATORY: No obvious rhonchi or wheezing. Clear to auscultation. Breath sounds equal bilaterally. GASTROINTESTINAL: Abdomen soft, left flank tenderness to palpation, nondistended. BS normal. MUSCULOSKELETAL: Extremities without clubbing, cyanosis, or edema. No obvious deformities. Left CVA tenderness NEUROLOGICAL: Awake, alert and oriented x4. No focal neurologic deficits. Moving both upper and lower extremities spontaneously. Procedures none A/P Problem List: (1) UTI (urinary tract infection) ICD Code: N39.0 - Urinary tract infection, site not specified Status: Acute (2) Failure of outpatient treatment ICD Code: Z78.9 - Other specified health status (3) KEZIA (acute kidney injury) ICD Code: N17.9 - Acute kidney failure, unspecified Status: Acute Assessment and Plan 1. UTI/pyelonephritis: Recurrent. U/a w/ UTI, s/p Rocephin IV in ER, will continue w/ IV Abx, IVF for hydration, follow up urine cultures. CT Abd/Pelvis w/ no stone/obstructive uropathy, images reviewed by me. Patient has left pyelonephritis 2. Failed Outpatient Tx: On Cipro [id number] as outpatient w/ persistent UTI, review of previous cultures 11/11/17 +Pseudomonas, [place] sensitive and 12/08/17 + Naomi, will await culture results. 3. KEZIA: Creatinine 1.61, previously 0.91 on 12/08/17. IVF for hydration, repeat labs in a.m. improving 4. Diarrhea with a history of C. difficile. C. difficile toxin pending. Lactinex DVT Prophylaxis: SCD/teds. SQ Heparin DC plan discharge when improved possible on today's Problem Qualifiers (1) UTI (urinary tract infection): Qualified Codes: N39.0 - Urinary tract infection, site not specified Marilou Harris MD Jan 13, 2018 10:32
[2018-01-13] MEDS ORDERED: WALKER WHEELS/F1 MIS (11:09)
[2018-01-13 12:47] VITALS: BP 131/77; PULSE 100; RESP 20; TEMP 97.6; O2SAT 98
[2018-01-13 16:33] VITALS: BP 130/84; PULSE 73; RESP 20; TEMP 98.4; O2SAT 96
[2018-01-13] MEDS: traZODone HCL 50 MG TAB PO SCH (20:53)
[2018-01-13] MEDS: cefTRIAXone INJ 1,000 MG in SODIUM CHLORIDE 0.9% INJ 100 ML IV SCH (20:53)
[2018-01-13 21:31] VITALS: BP 151/82; PULSE 74; RESP 16; TEMP 98.3; O2SAT 96
[2018-01-14 00:47] VITALS: BP 148/85; PULSE 80; RESP 16; TEMP 98.2; O2SAT 93
[2018-01-14] MEDS: MORPHINE SULFATE 2 MG/ML INJ IV PUSH PRN ×2 (02:59→08:51)
[2018-01-14 04:20] VITALS: BP 139/76; PULSE 75; RESP 16; TEMP 98.1; O2SAT 95
[2018-01-14 07:32] LABS: AUTOMATED NEUTROPHIL # 1.9 TH/MM3 (1.8-7.7); EOSINOPHIL # 0.2 TH/MM3 (0-0.4); EOSINOPHIL % 5.2 % (0.0-4.0); HEMOGLOBIN 11.6 GM/DL (11.6-15.3); LYMPH % 46.9 % (9.0-44.0); LYMPHOCYTE # 2.2 TH/MM3 (1.0-4.8); MEAN CELL VOLUME 84.4 FL (80.0-100.0); MEAN CORPUSCULAR HEMOGLOBIN 30.5 PG (27.0-34.0); MEAN PLATELET VOLUME 8.3 FL (7.0-11.0); MONO % 6.2 % (0.0-8.0); MONOCYTE # 0.3 TH/MM3 (0-0.9); NEUT % 40.7 % (16.0-70.0); PLATELET COUNT 154 TH/MM3 (150-450); RED BLOOD COUNT 3.79 MIL/MM3 (4.00-5.30); RED CELL DISTRIBUTION WIDTH 12.9 % (11.6-17.2); WHITE BLOOD COUNT 4.8 TH/MM3 (4.0-11.0)
[2018-01-14 07:43] LABS: MEAN CORPUSCULAR HGB CONC 36.1 % (32.0-36.0)
[2018-01-14 08:02] LABS: BICARBONATE 28.1 MEQ/L (21.0-32.0); CALCIUM 8.7 MG/DL (8.5-10.1); CREATININE 0.96 MG/DL (0.50-1.00)
[2018-01-14 08:26] VITALS: BP 145/91; PULSE 64; RESP 18; TEMP 97.5; O2SAT 96
[2018-01-14] MEDS ORDERED: POTASSIUM CHLORIDE 10 MEQ CONTROLLED RELEASE TAB PO ONE (08:30)
--- NOTE | 2018-01-14 08:41 | HHI.DS ---
Discharge Summary Admission Date Jan 11, 2018 at 21:33 Discharge Date: Jan 14, 2018 Admitting Diagnosis UTI, failed outpatient therapy; dehydration (1) UTI (urinary tract infection) ICD Code: N39.0 - Urinary tract infection, site not specified Status: Acute (2) Failure of outpatient treatment ICD Code: Z78.9 - Other specified health status (3) KEZIA (acute kidney injury) ICD Code: N17.9 - Acute kidney failure, unspecified Status: Acute Procedures none Brief History - From Admission This is a 57-year-old female with PMH of Anxiety, Depression, HTN, COPD, GERD, h /o Renal Stones and Recurrent UTI who presented to the ER w/ complaints of left flank pain in addition to nausea and vomiting. States pain is cramping, severe , 10/10, non-radiating, worse w/ movement, associated w/ nausea/vomiting in addition to few episodes of diarrhea. Denies fever or chills. Has been on Cipro x14 days for UTI by PCP. On arrival, BP 113/56, HR 79, O2 sat 96% on RA, Afebrile. CBC unremarkable. Creatinine 1.61, previously 0.91 on 12/08/17. Troponin negative. INR 1.0. UA positive for UTI. CXR with no acute findings. CT Abd/Pelvis w/ no renal stone identified, no evidence of obstructive uropathy, multiple calcified gallstones with no biliary ductal dilatation. S/p Rocephin, Toradol and Zofran in ER. CBC/BMP: 01/14/18 0602 01/14/18 0400 Significant Findings Laboratory Tests Test 01/11/18 18:00 01/11/18 19:00 01/12/18 06:25 01/12/18 06:45 Eosinophils (%) (Auto) 5.3 % (0.0-4.0) 5.9 % (0.0-4.0) Activated Partial Thromboplast Time 23.3 SEC (24.3-30.1) Blood Urea Nitrogen 23 MG/DL (7-18) Creatinine 1.61 MG/DL (0.50-1.00) 1.31 MG/DL (0.50-1.00) Aspartate Amino Transf (AST/SGOT) 13 U/L (15-37) 9 U/L (15-37) Sodium Level 146 MEQ/L (136-145) 148 MEQ/L (136-145) Potassium Level 3.4 MEQ/L (3.5-5.1) 3.3 MEQ/L (3.5-5.1) Chloride Level 110 MEQ/L (98-107) 116 MEQ/L (98-107) Estimat Glomerular Filtration Rate 33 ML/MIN (>89) 42 ML/MIN (>89) Troponin I LESS THAN 0.02 NG/ML Urine Turbidity HAZY (CLEAR) Urine Leukocyte Esterase LARGE (NEG) Urine WBC 58 /hpf (0-5) Urine Bacteria RARE /hpf (NONE) Urine Mucus FEW /lpf (OCC) Total Protein 5.7 GM/DL (6.4-8.2) Albumin 3.2 GM/DL (3.4-5.0) Calcium Level 8.3 MG/DL (8.5-10.1) Red Blood Count 3.99 MIL/MM3 (4.00-5.30) Hematocrit 34.4 % (35.0-46.0) Test 01/13/18 08:35 01/14/18 04:00 01/14/18 06:02 Chloride Level 114 MEQ/L (98-107) 109 MEQ/L (98-107) Estimat Glomerular Filtration Rate 58 ML/MIN (>89) 60 ML/MIN (>89) Potassium Level 3.3 MEQ/L (3.5-5.1) Red Blood Count 3.79 MIL/MM3 (4.00-5.30) Hematocrit 32.0 % (35.0-46.0) Mean Corpuscular Hemoglobin Concent 36.1 % (32.0-36.0) Lymphocytes (%) (Auto) 46.9 % (9.0-44.0) Eosinophils (%) (Auto) 5.2 % (0.0-4.0) Imaging Last Impressions Chest X-Ray 01/11/18 1620 Signed Impressions: Service Date/Time: Thursday, January 11, 2018 16:41 - CONCLUSION: No acute cardiopulmonary disease identified. Bimal Albert MD Abdomen/Pelvis CT 01/11/18 0000 Signed Impressions: Service Date/Time: Thursday, January 11, 2018 19:12 - CONCLUSION: 1. No renal calculi identified. No evidence for obstructive uropathy. Multiple calcified gallstones without biliary ductal dilatation. Oj Diaz MD PE at Discharge GENERAL: Middle-aged white female in no acute distress. HEENT: PERRLA, EOMI. No scleral icterus or conjunctival pallor. No lid lag or facial droop. CARDIOVASCULAR: Regular rate and rhythm. No obvious murmurs to auscultation. No chest tenderness to palpation. RESPIRATORY: No obvious rhonchi or wheezing. Clear to auscultation. Breath sounds equal bilaterally. GASTROINTESTINAL: Abdomen soft, left flank tenderness to palpation, nondistended. BS normal. MUSCULOSKELETAL: Extremities without clubbing, cyanosis, or edema. No obvious deformities. Left CVA tenderness NEUROLOGICAL: Awake, alert and oriented x4. No focal neurologic deficits. Moving both upper and lower extremities spontaneously. Pt update on day of discharge In bed appears to not acute distress. Pain is controlled. No nausea or vomiting no diarrhea or constipation Hospital Course 1. UTI/pyelonephritis: Recurrent. U/a w/ UTI, s/p Rocephin IV in ER, will continue w/ IV Abx, IVF for hydration, follow up urine cultures. CT Abd/Pelvis w/ no stone/obstructive uropathy, images reviewed by me. Patient has left pyelonephritis.Better on Rocephin DC on ceftin po 2. Failed Outpatient Tx: On Cipro [id number] as outpatient w/ persistent UTI, review of previous cultures 11/11/17 +Pseudomonas, [place] sensitive and 12/08/17 + Naomi. Cultures normal delmy 3. KEZIA: Creatinine 1.61, previously 0.91 on 12/08/17. IVF for hydration, repeat labs in a.m. improving 4. Diarrhea with a history of C. difficile. C. difficile toxin if diarrhea occurs. Patient did not have any diarrhea . Lactinex DVT Prophylaxis: SCD/teds. SQ Heparin Patien timprpved DC home in stabel condition to follow up as OP with PCP and consultants Pt Condition on Discharge: Stable Discharge Disposition: Disch w/ Home Health Serv Discharge Time: > 30 minutes Discharge Instructions DIET: Follow Instructions for: Heart Healthy Diet Activities you can perform: Regular-No Restrictions Activities to Avoid: Driving Follow up Referrals: PCP Follow-up - 2-3 Days Urology - 1 Week New Medications: Cefuroxime (Ceftin) 250 Mg Tab 250 MG PO BID for infection for 7 Days, #14 TAB Walker with Front Wheels (Walker with Front Wheels) 1 Mis Mis EA .XX DIRECTED, #1 0 Refills Continued Medications: Baclofen (Baclofen) 10 Mg Tab 10 MG PO TID for Muscle Spasm, #90 TAB 0 Refills Clonazepam (Clonazepam) 0.5 Mg Tab 0.5 MG PO BID for Anxiety and/or Insomnia, #60 TAB 0 Refills Quetiapine ER (Quetiapine ER) 400 Mg Tab 400 MG PO DAILY for Agitation, #30 TAB 0 Refills Ropinirole (Ropinirole) 1 Mg Tab 1 MG PO TID for RLS, #90 TAB 0 Refills Tamsulosin (Flomax) 0.4 Mg Cap 0.4 MG PO DAILY for Urinary Symptom Managemen, #30 CAP Tramadol (Tramadol) 50 Mg Tab 50 MG PO BID PRN for PAIN, #30 TAB 0 Refills (This prescription has been renewed ) Trazodone (Trazodone) 50 Mg Tab 50 MG PO HS for Control Depression, #30 TAB 0 Refills Marilou Harris MD Jan 14, 2018 08:41
[2018-01-14] MEDS ORDERED: TRAM50TA PO (08:45)
[2018-01-14] MEDS: DOCUSATE SODIUM 50 MG/SENNA 8.6 MG TAB PO SCH (08:46)
[2018-01-14] MEDS: clonazePAM 0.5 MG TAB PO SCH (08:46)
[2018-01-14] MEDS: LACTOBACILLUS ACIDOPHILUS TAB PO SCH (08:46)
[2018-01-14] MEDS: TAMSULOSIN HCL 0.4 MG CAP PO SCH (08:47)
[2018-01-14] MEDS: QUEtiapine FUMARATE 200 MG TAB PO SCH (08:47)
[2018-01-14] MEDS: HEPARIN SODIUM - SQ 10,000 UNITS/ML VIAL SQ SCH (08:47)
[2018-01-14] MEDS: SODIUM CHLORIDE 0.9% FLUSH 10 ML FLUSH IV FLUSH SCH (08:47)
[2018-01-14] MEDS: BACLOFEN 10 MG TAB PO SCH (08:47)
[2018-01-14] MEDS ORDERED: CEFU1TAB18 PO (08:49)
[2018-01-14] MEDS: SODIUM CHLOR 0.9% 1000 ML INJ 1,000 ML IV SCH (08:49)
--- NOTE | 2018-01-14 15:10 | HHI.FF ---
Face to Face Verification Diagnosis: (1) Failure of outpatient treatment (2) Weakness (3) Dizziness (4) Nausea Home Health Nursing Order: Medical education Signs/symptoms of disease process Medication education-adverse effect Nursing assessment with vital signs I have seen patient Carly Dawkins on 01/14/18. My clinical findings support the need for the requested home health care services because: Ltd mobility - disease progression Patient has SOB I certify that my clinical findings support that this patient is homebound because: Post-op weakness Unsteady gait/balance Marilou Harris MD Jan 14, 2018 15:10
== END 2018-01-14 12:15 | disposition home health service (06) | DRG 690 ==
LOC: NEPC 15:01 → NEDA 21:33 → NEPHCDU 22:38
PROVIDERS: ADMIT Hospitalist; ATTEND Hospitalist
DX: N12 Tubulo-interstitial nephritis, not specified as acute or chronic (principal); N17.9 Acute kidney failure, unspecified; I10 Essential (primary) hypertension; Z87.440 Personal history of urinary (tract) infections; K21.9 Gastro-esophageal reflux disease without esophagitis; J44.9 Chronic obstructive pulmonary disease, unspecified; F41.9 Anxiety disorder, unspecified; F32.9 Major depressive disorder, single episode, unspecified; Z87.442 Personal history of urinary calculi; E86.0 Dehydration
CPT/HCPCS: 71046; 74176; 80048; 80053; 80076; 81001; 82550; 83690; 83735; 84484; 85025; 85610; 85730; 87086; 93005; 96361; 96365; 96375; J0696; J1644; J1885; J2270; J2405; J7030